=== PATIENT | female | born 1945 | race Caucasian/White ===

== ENCOUNTER 2018-02-25 09:45 | Emergency (ER) | payer MEDICARE, MEDICAID ==
[~2018-02-25] VITALS: Ht 157.5 cm; Wt 78.9 kg
[~2018-02-25 09:45] MED LIST: ALLO100T PO; ANAS1TAB8 PO; CALC-1029 PO; CITA20TA16 PO; DOCU250C14 PO; ENAL5TAB PO; GLYB5TAB7 PO; LINA5TAB PO; METF-440 PO; SIMV20TA6 PO; [UNRECOGNIZED DRUG - CODE] OP
--- NOTE | 2018-02-25 09:53 | NUR ---
BIB RA 878 FROM HOME,FOUND BY SON ON THE FLOOR THIS MORNING,UNABLE TO GET UP AFTER GLF. DENIES LOC. A/OX 2, BREATHING EVEN AND UNLABORED. NO SOB, NAD, VITALS STABLE. SAFETY AND COMFORT MEASURES IN PLACE. AWAITING MD ORDERS.
[2018-02-25] MEDS ORDERED: ACETAMINOPHEN ES 500 MG TABLET ONE (09:56)
[2018-02-25] MEDS ORDERED: ACETAMINOPHEN 325 MG TABLET PO ONE (10:00)
[2018-02-25] MEDS ORDERED: CANA1TAB4 PO (10:03)
--- NOTE | 2018-02-25 10:07 | NUR ---
RAILCAR CARPENTER AT BEDSIDE
--- NOTE | 2018-02-25 11:15 | NUR ---
PATIENT ABLE TO AMBULATE WITH MAX ASSIST. DENIES ANY PAIN. MD AWARE.
[2018-02-25 11:42] VITALS: BP 138/66
--- NOTE | 2018-02-25 11:49 | NUR ---
Patient discharged to home in stable condition. Written and verbal after care instructions given. Patient verbalizes understanding of instruction.
== END 2018-02-25 11:49 | disposition home or self-care (01) ==
LOC: ER 09:48
DX: S80.01XA Contusion of right knee, initial encounter (principal); S80.02XA Contusion of left knee, initial encounter; E11.40 Type 2 diabetes mellitus with diabetic neuropathy, unspecified; I10 Essential (primary) hypertension; Z79.84 Long term (current) use of oral hypoglycemic drugs; Z85.3 Personal history of malignant neoplasm of breast; Z60.2 Problems related to living alone; W01.0XXA Fall on same level from slipping, tripping and stumbling without subsequent striking against object, initial encounter; Y93.01 Activity, walking, marching and hiking; Y92.002 Bathroom of unspecified non-institutional (private) residence as the place of occurrence of the external cause; Y99.8 Other external cause status
CPT/HCPCS: 73564-TC; A4606; Z7610

== ENCOUNTER 2018-03-07 20:19 | Inpatient (IN) | payer MEDICAID, MEDICARE ==
[~2018-03-07] VITALS: Ht 165.1 cm; Wt 75.3 kg
[2018-03-07] MEDS: BLOOD SUGAR DIAGNOSTIC 1 EACH STRIP IN SCH (00:40)
[~2018-03-07 20:19] MED LIST changes: -ALLO100T PO; -ANAS1TAB8 PO; -CALC-1029 PO; +CANA1TAB4 PO; -DOCU250C14 PO; -GLYB5TAB7 PO; -LINA5TAB PO; -METF-440 PO; -[UNRECOGNIZED DRUG - CODE] OP
--- NOTE | 2018-03-07 20:35 | NUR ---
PT BBRA FROM HOME AFTER SON FOUND PT LAYING ON THE FLOOR AND UNABLE TO GET UP. -KO. -N/V/D. SKIN WARM AND DRY TO TOUCH. PT IS AAOX4. PT DENIES DIZZINESS. PT DENIES TRAUMA. PT'S RESP EVEN AND UNLABORED. NO S/S OF ACUTE DISTRESS NOTED. PT SAFETY AND COMFORT MEASURES IN PLACE. VSS. PT PLACED ON INSURANCE FOLLOW UP SPECIALIST AND POX. FAMILY MEMBERS BEDSIDE. AWAITING MD FOR EVAL
[2018-03-07 20:58] LABS: BASOPHILS # (AUTO) 0.2 /CMM (0.0-0.2); MONOCYTES # (AUTO) 0.5 /CMM (0.1-1.30)
[2018-03-07 21:02] LABS: BASOPHILS % (AUTO) 1.7 % (0.0-2.0); EOSINOPHILS % (AUTO) 0.9 % (0.0-6.0); HEMATOCRIT 32 % (33-45); HEMOGLOBIN 10.8 g/dL (11.5-14.8); LYMPHOCYTES # (AUTO) 1.8 /CMM (0.8-4.8); LYMPHOCYTES % (AUTO) 14.1 % (20.0-44.0); MEAN CORPUSCULAR HGB CONC 34 g/dl (31.0-36.0); MEAN CORPUSCULAR VOLUME 81 fL (82-100); MONOCYTES % (AUTO) 3.8 % (2.0-12.0); NEUTROPHILS # (AUTO) 10.5 /CMM (1.8-8.9); NEUTROPHILS % (AUTO) 79.5 % (43.0-81.0); PLATELET COUNT (AUTO) 399 /CMM (150-450); RDW COEFFICIENT OF VARIATION 13.7 (11.5-15.0); RED BLOOD CELL COUNT(AUTO) 4.01 MIL/uL (4.0-5.2); WHITE BLOOD COUNT (AUTO) 13.1 K/uL (4.3-11.0)
[2018-03-07 21:13] LABS: CALCIUM, SERUM 9.4 mg/dL (8.5-10.1); CARBON DIOXIDE 24 mmol/L (21-32); CHLORIDE 98 mmol/L (98-107); CREATININE 1.6 mg/dL (0.6-1.3); GLUCOSE 307 mg/dL (74-106); SODIUM SERUM 131 mmol/L (136-145); UREA NITROGEN, BLOOD 48 mg/dL (7-18)
--- NOTE | 2018-03-07 21:24 | NUR ---
CALLED NURSING SUP. FOR MS BED
--- NOTE | 2018-03-07 21:28 | NUR ---
CURTIS PAVON, BETO SHEPARD TEMPERATURE REGULATOR
[2018-03-07] MEDS ORDERED: IV NS 0.9% 500 ML BAG IV ONE (21:30)
[2018-03-07 21:39] LABS: BAND % (MANUAL) 2 % (0.0-5.0); LYMPHOCYTES % (MANUAL) 14 % (16-48); MONOCYTES % (MANUAL) 4 % (0-11.0); NEUTROPHILS % (MANUAL) 80 (42-76)
[2018-03-07 22:05] LABS: CREATINE KINASE MB 2.8 ng/mL (0-3.6)
--- NOTE | 2018-03-07 22:30 | NUR ---
REPORT GIVEN TO CAMELIA GARSIA FOR IRENA.
[2018-03-07 22:45] VITALS: BP 140/64
--- NOTE | 2018-03-07 22:45 | NUR ---
MS/MANAGER AUDIO; PT CAME FROM ER FOR ADMISSION VIA GURNEY ACCOMPANIED BY ER MALE STAFF AND ALSO ACCOMPANIED BY 2 SONS ZEINA AND MITESH. DX; DEHYDRATION. PT AWAKE, ALERT AND VERBALLY RESPONSIVE FARSI SPEAKING WITH LITTLE WELSH. DENIES PAIN. BREATHING NON LABORED. HL ON RWA # 20 INTACT. PT WOUNDS. BOTH LOWER LEGS AND FEET ARE SWOLLEN. BED ON LOWER POSITION AND LEANNA FOR SAFETY. SIDE RAILS ARE UP FOR SAFETY. CONTINUE TO MONITOR . CALL LIGHT WITHIN REACH. INCONTINENT OF URINE AND BM. PERINEAL CARE DONE.
[2018-03-07 23:00] VITALS: BP 140/64
[2018-03-07] MEDS ORDERED: Z GUARD REMEDY 2 OZ OINT TP PRN (23:00)
[2018-03-07] MEDS ORDERED: ACETAMINOPHEN 325 MG TABLET PO PRN (23:00)
[2018-03-07] MEDS ORDERED: DEXTROSE 50%-WATER 50 ML DISP.SYRIN IV PRN (23:00)
[2018-03-07] MEDS ORDERED: ONDANSETRON HCL/PF 4 MG/2 ML VIAL IVP PRN (23:00)
[2018-03-07] MEDS ORDERED: MAGNESIUM HYDROXIDE 30 ML UDC PO PRN (23:00)
[2018-03-07] MEDS: IV NS 0.9% 1,000 ML IV PRN (23:59)
[2018-03-08] MEDS ORDERED: AMLO5TAB4 PO (00:13)
[2018-03-08] MEDS ORDERED: GLIM1TAB2 PO (00:13)
[2018-03-08] MEDS ORDERED: DICL1ADH11 TP (00:13)
[2018-03-08] MEDS ORDERED: LINA72CA PO (00:13)
[2018-03-08] MEDS ORDERED: ERGO500040 PO (00:13)
[2018-03-08] MEDS ORDERED: ACET-2605 PO (00:13)
--- NOTE | 2018-03-08 00:30 | NUR ---
MS/BELT MEASURER; PLACED A CALL TO BETO SHEPARD OIL SALES AND SERVICE REP RE PT'S SON ZEINA WANTS TO CONTINUE PT'S MED TONIGHT AND SUGGESTION FOR FC . AWAITING.
--- NOTE | 2018-03-08 00:40 | NUR ---
MS/YARN WEIGHER; BS 360 COVERED WITH REGULAR INSULIN 8 UNITS SQ. WILL CONTINUE TO MONITOR.
--- NOTE | 2018-03-08 01:45 | NUR ---
MS/OTORHINOLARYNGOLOGIST; BETO SHEPARD NP RETURNED CALL AND SPOKE TO HER RELAYED TO HER PT'S MED RECON PER SON ZEINA WANTS PT TO CONTINUE HER PO MEDS TONIGHT DUE TO PT DID NOT TAKE HER MEDS YESTERDAY AND ALMA SHEPARD NP SAID NOT TO CONTINUE PO MEDS TONIGHT START IT TOMORROW.ALSO SHE OK TO PLACE WARD CATH. MARY RN SPOKE TO THE PT IN [facility] AN TOOL SHAPER SETUP OPERATOR REGARDING MEDS AND TO PLACE A FC . PT REFUSED FC.
[2018-03-08] MEDS: BLOOD SUGAR DIAGNOSTIC 1 EACH STRIP IN SCH ×4 (05:55→22:07)
--- NOTE | 2018-03-08 06:00 | NUR ---
MS/SALES SERVICE ROUTE MANAGER; BS 209 REFUSED INSULIN COVERAGE.
--- NOTE | 2018-03-08 06:30 | NUR ---
MS/DISC RECORDIST; PLACED A CALL TO NUNO PASTRANA PT'S PO MEDS TO START TODAY PER MD.
--- NOTE | 2018-03-08 06:46 | NUR ---
MS/SIGNAL PROCESSING ENGINEER; SLEPT FAIRLY. BREATHING NON LABORED. INCONTINENT URINE X 3 AND BM X1 LARGE AMOUNT BROWN COLOR . MORNING CARE DONE BY THE SOCCER COACH. TURNED AND REPOSITIONED. IVF ON PROGRESS. PT WAS SAYING FELT DIZZY OCC. CONTINUE TO MONITOR. CALL LIGHT WITHIN REACH. WILL ENDORSE TO THE DAY SHIFT NURSE.
[2018-03-08 07:02] LABS: BASOPHILS % (AUTO) 0.4 % (0.0-2.0); EOSINOPHILS % (AUTO) 1.1 % (0.0-6.0); HEMATOCRIT 29 % (33-45); HEMOGLOBIN 9.8 g/dL (11.5-14.8); LYMPHOCYTES # (AUTO) 1.8 /CMM (0.8-4.8); LYMPHOCYTES % (AUTO) 17.2 % (20.0-44.0); MEAN CORPUSCULAR HGB CONC 33 g/dl (31.0-36.0); MEAN CORPUSCULAR VOLUME 82 fL (82-100); MONOCYTES # (AUTO) 0.7 /CMM (0.1-1.30); MONOCYTES % (AUTO) 6.3 % (2.0-12.0); NEUTROPHILS # (AUTO) 7.8 /CMM (1.8-8.9); PLATELET COUNT (AUTO) 359 /CMM (150-450); RDW COEFFICIENT OF VARIATION 14.6 (11.5-15.0); RED BLOOD CELL COUNT(AUTO) 3.59 MIL/uL (4.0-5.2); WHITE BLOOD COUNT (AUTO) 10.4 K/uL (4.3-11.0)
[2018-03-08 07:19] LABS: CALCIUM, SERUM 8.8 mg/dL (8.5-10.1); CARBON DIOXIDE 26 mmol/L (21-32); CHLORIDE 102 mmol/L (98-107); CREATININE 1.4 mg/dL (0.6-1.3); GLUCOSE 213 mg/dL (74-106); MAGNESIUM 1.9 mg/dL (1.8-2.4); PHOSPHORUS 3.7 mg/dL (2.5-4.9); POTASSIUM 4.1 mmol/L (3.5-5.1); SODIUM SERUM 136 mmol/L (136-145); UREA NITROGEN, BLOOD 37 mg/dL (7-18)
[2018-03-08 07:23] LABS: CHOLESTEROL 133 mg/dL (<200); HDL CHOLESTEROL 36 mg/dL (40-60); LDL 78 mg/dL (0-99); TRIGLYCERIDES 138 mg/dL (30-150)
[2018-03-08 08:00] VITALS: BP 121/56
[2018-03-08] MEDS ORDERED: ERGOCALCIFEROL (VITAMIN D 2) 50,000 UNIT CAPSULE PO SCH (09:00)
[2018-03-08] MEDS ORDERED: FLECTOR TP SCH ×2 (09:00→09:30)
[2018-03-08] MEDS ORDERED: ACETAMINOPHEN ES 500 MG TABLET PO PRN (09:30)
--- NOTE | 2018-03-08 09:40 | NUR ---
DIET COUNSELOR NOTE Pt aao x3, in bed on the phone with son, Pt understands and speaks very little croatian, primary language farsi, Urdu culture, Spoke on the phone with son Emil, he was very concerned with medication taken in the hospital in reference to the medication taking at home; Patient was given insulin pt complained it made he dizzy; MEDICAL VIDEOGRAPHER Made aware
--- NOTE | 2018-03-08 10:48 | NUR ---
COMPENSATION PROGRAMS MANAGER NOTE PT in room with patient; Patient incontinent of urine and stool; assisted Farm Implement Mechanic with change and turning patient; PT has several Pressure Ulcers from home; Patient perfers to turn with little assistance to help promote circulation because left knee has alot of pain alyssa moved;
[2018-03-08] MEDS: SIMVASTATIN 20 MG TABLET PO SCH (10:50)
[2018-03-08] MEDS: CITALOPRAM HYDROBROMIDE 20 MG TABLET PO SCH (10:50)
[2018-03-08] MEDS: AMLODIPINE BESYLATE 5 MG TABLET PO SCH (10:50)
[2018-03-08] MEDS: HEPARIN SODIUM, PORCINE 5000 UNITS/1 ML VIAL SQ SCH ×2 (10:50→21:39)
--- NOTE | 2018-03-08 13:40 | NUR ---
RHIC SYSTEMS SAFETY ENGINEER NOTE Family at bedside continuously throughout the day; Patient continues to refused insulin, insist on waiting for family to bring medicine from home Bilateral legs swollen legs kept elevated throughout the day
[2018-03-08 16:00] VITALS: BP 122/64
--- NOTE | 2018-03-08 17:00 | NUR ---
SOCIAL WORK PROGRAM COORDINATOR NOTE Unsuccessful with Rosales insert; Perineal area very swollen; endorsed to the next shift Diabetic Medication from home taken
[2018-03-08] MEDS: INVOKAMET PO SCH (17:30)
--- NOTE | 2018-03-08 19:35 | NUR ---
MS/FLUME RIDE OPERATOR; RECEIVED PT'S REPORTS FROM THE DAY SHIFT RN FOR CONTINUITY OF CARE. AT THIS TIME PT IN BED AWAKE, ALERT AND VERBALLY RESPONSIVE. FARSI SPEAKING WITH LITTLE YAKUT. HOB ELEVATED AT 30 DEGREES. BREATHING NON LABORED. IVF INFUSING ON HER RWA. BED ON LOWER POSITION AND LOCKED FRO SAFETY. SIDE RAILS X 3 ARE UP FOR SAFETY. PT'S DAUGHTER JENNIFER VISITED AT THE BEDSIDE SO WITH HER GRANDSON. WILL CONTINUE TO MONITOR. CALL LIGHT WITHIN REACH.
[2018-03-08 20:41] VITALS: BP 106/56
--- NOTE | 2018-03-08 21:00 | NUR ---
TELE/TEST ENGINEER NUCLEAR EQUIPMENT; KEPPRA 500 MG GT Q 12 NOT GIVEN AT THIS TIME TO CLOSE TO GIVE BECAUSE DAY SHIFT RN GAVE AT 1700. SO I WILL NEED TO ADJUST AND GIVEN IT IN THE MORNING AT 0500 TO MAKE IT Q 12. DAY SHIFT GAVE IT AT 1700 AND TO CLOSE TO GIVE ON MY SHIFT AND I INFORMED THE CHARGE NURSE.
--- NOTE | 2018-03-08 21:45 | NUR ---
MS/STAGE PRODUCER; AT THIS TIME I ASKED AND EXPLAINED TO THE PT. ABOUT INSERTING WARD CATH THE IMPORTANCE OF IT. BUT PT REFUSED AND SHE SAID TOMORROW , SHE FURTHER SAID I AM TIRED AND I NEED TO SLEEP. IF THERE IS VISITOR SHE SAID NO VISITOR I AM TIRED AND I NEED TO SLEEP. CHARGE NURSE MADE AWARE PT REFUSED FC.
--- NOTE | 2018-03-08 22:00 | NUR ---
MS/DIE CAST DIE MAKER; BS 283 REGULAR INSULIN 6 UNITS NOT GIVEN PT DOES NOT WANT ANY INSULIN. CHARGE NURSE MADE AWARE.
[2018-03-09] MEDS: IV NS 0.9% 1,000 ML IV PRN ×2 (02:37→15:59)
--- NOTE | 2018-03-09 06:00 | NUR ---
MS/GREEN MARKETING ANALYST; BS 176 REGULAR 3 UNITS NOT GIVEN PT REFUSED. WITH IVF ON PROGRESS.
[2018-03-09] MEDS: BLOOD SUGAR DIAGNOSTIC 1 EACH STRIP IN SCH ×4 (06:15→21:35)
--- NOTE | 2018-03-09 06:47 | NUR ---
MS/CRYSTAL CALIBRATOR; SLEPT AT GOOD INTERVALS. IVF ON PROGRESS. INCONTINENT OF URINE; NO BM. I ASKED AGAIN TO THE PT THAT I NEED TO INSERT WARD CATH. BUT STILL SHE REFUSED. MORNING CARE GIVEN BY THE ORACLE FINANCIALS CONSULTANT. TURNED AND REPOSITIONED TO SIDES. WILL CONTINUE TO MONITOR. CALL LIGHT WITHIN REACH. WILL ENDORSE TO THE DAY SHIFT.
--- NOTE | 2018-03-09 07:25 | NUR ---
RN OPEN NOTES RECEIVED REPORT FROM MISCELLANEOUS MACHINE OPERATOR NURSE AT BEDSIDE. PATIENT IS IN BED WITH HER EYES CLOSED. BREATHING IS BILATERALLY EVEN. NO SIGNS AND SYMPTOMS OF DISTRESS. BED IN LOW POSITION, LOCKED AND TWO SIDE RAILS ARE UP. CALL LIGHT WITHIN REACH FOR SAFETY. WILL CONTINUE TO ASSESS AND MONITOR PATIENT THROUGHOUT MY SHIFT.
--- NOTE | 2018-03-09 07:26 | NUR ---
PER HOT TAMALE MAN NURSE, PATIENT REFUSING WARD.
[2018-03-09 08:00] VITALS: BP 121/65
[2018-03-09] MEDS: AMLODIPINE BESYLATE 5 MG TABLET PO SCH (08:51)
[2018-03-09] MEDS: CITALOPRAM HYDROBROMIDE 20 MG TABLET PO SCH ×2 (08:51→21:36)
[2018-03-09] MEDS: INVOKAMET PO SCH ×2 (08:51→16:19)
[2018-03-09] MEDS: SIMVASTATIN 20 MG TABLET PO SCH (08:51)
[2018-03-09] MEDS: HEPARIN SODIUM, PORCINE 5000 UNITS/1 ML VIAL SQ SCH ×2 (08:55→20:37)
[2018-03-09] MEDS ORDERED: SILVER NITRATE APPLICATOR 1 EA BOX TP SCH (11:00)
--- NOTE | 2018-03-09 11:05 | NUR ---
WOUND CARE CONSULT: PT SEEN FOR SKIN ASSESSMENT AND NOTED TO HAVE MULTIPLE WOUNDS INCLUDING LEFT THIGH, LEFT HIP AND LEFT POSTERIOR THIGH NECROTIC WOUNDS. DEFER TO SURGICAL TEAM FOR WOUND TREATMENT PLAN. PT ON ARNOLDO ISOFLEX LOW AIRLOSS BED. PT IS INCONTINENT. IN AGREEMENT WITH PLAN OF CARE. Addendum: 03/09/18 at 1107 by RIVER ESPINOZA WNDNU Amended: Links added.
--- NOTE | 2018-03-09 11:30 | NUR ---
16FR WARD INSERTED. PATIENT TOLERATED PROCEDURE WELL. THE BALLOON INFLATED WITH 10CC OF FLUID
[2018-03-09 11:39] LABS: BASOPHILS % (AUTO) 0.5 % (0.0-2.0); HEMATOCRIT 29 % (33-45); HEMOGLOBIN 9.5 g/dL (11.5-14.8); LYMPHOCYTES # (AUTO) 1.8 /CMM (0.8-4.8); LYMPHOCYTES % (AUTO) 19.4 % (20.0-44.0); MEAN CORPUSCULAR HGB CONC 33 g/dl (31.0-36.0); MEAN CORPUSCULAR VOLUME 82 fL (82-100); MONOCYTES # (AUTO) 0.7 /CMM (0.1-1.30); MONOCYTES % (AUTO) 6.9 % (2.0-12.0); NEUTROPHILS # (AUTO) 6.8 /CMM (1.8-8.9); NEUTROPHILS % (AUTO) 71.2 % (43.0-81.0); PLATELET COUNT (AUTO) 372 /CMM (150-450); RDW COEFFICIENT OF VARIATION 14.2 (11.5-15.0); RED BLOOD CELL COUNT(AUTO) 3.49 MIL/uL (4.0-5.2); WHITE BLOOD COUNT (AUTO) 9.5 K/uL (4.3-11.0)
[2018-03-09 11:44] LABS: CALCIUM, SERUM 8.8 mg/dL (8.5-10.1); CARBON DIOXIDE 26 mmol/L (21-32); CHLORIDE 103 mmol/L (98-107); CREATININE 1.3 mg/dL (0.6-1.3); GLUCOSE 278 mg/dL (74-106); POTASSIUM 4.1 mmol/L (3.5-5.1); SODIUM SERUM 138 mmol/L (136-145); UREA NITROGEN, BLOOD 28 mg/dL (7-18)
[2018-03-09] MEDS ORDERED: LIDOCAINE 1%-EPI 1:100,000 20 ML VIAL TP ONE (12:00)
--- NOTE | 2018-03-09 12:30 | NUR ---
FAMILY REFUSING INSULIN COVERAGE FOR BLOOD SUGAR 249
[2018-03-09] MEDS: NYSTATIN TOP POWDER 15 GM BOTTLE TP SCH ×2 (12:59→16:19)
[2018-03-09 13:36] LABS: APPEARANCE,URINE CLOUDY (CLEAR); BILIRUBIN,URINE NEGATIVE (NEGATIVE); BLOOD, URINE 2+ Ery/uL (NEGATIVE); COLOR,URINE YELLOW (YELLOW); KETONES,URINE NEGATIVE (NEGATIVE); LEUKOCYTE ESTERASE ,URINE 1+ (NEGATIVE); NITRITE, URINE NEGATIVE (NEGATIVE); PH,URINE 5.5 (5.0-8.0); PROTEIN,URINE TRACE mg/dl (NEGATIVE); UGLUCOSE 3+ mg/dL (NEGATIVE); UROBILINOGEN,URINE 0.2 EU/dL (0.2)
[2018-03-09] MEDS ORDERED: GLIM1TAB2 PO (13:46)
--- NOTE | 2018-03-09 14:00 | NUR ---
SON SIGNED THE CONSENT. PLACED INT HE CHART
[2018-03-09 14:39] LABS: BACTERIA,URINE Many /HPF (None Seen); SQUAMOUS EPITHELIAL CELL,UR Moderate /HPF (None Seen); YEAST,URINE Moderate /HPF (None Seen)
[2018-03-09] MEDS: NYSTATIN/TRIAMCIN CREAM 15 GM TUBE TP SCH ×2 (14:45→20:45)
[2018-03-09] MEDS: DAKINS QUARTER STRENGTH (0.125%) 480 ML BOTTLE TOP SCH (14:46)
[2018-03-09 16:00] VITALS: BP 135/64
[2018-03-09] MEDS: HYDROCODONE/APAP 5/325MG 1 EACH TABLET PO PRN ×2 (16:00→20:36)
--- NOTE | 2018-03-09 16:00 | NUR ---
NORCO ADMINISTERED AT 4PM PRIOR TO WOUND DEBRIDEMENT
[2018-03-09] MEDS: GLIMEPIRIDE 1 MG TABLET PO SCH (16:19)
[2018-03-09] MEDS: CEFTRIAXONE 1 G in IV D5W 50 ML IV SCH (16:40)
--- NOTE | 2018-03-09 17:00 | NUR ---
WOUND DEBRIDEMENT AT BEDSIDE BY FREDRICK MURCIA
--- NOTE | 2018-03-09 17:29 | NUR ---
POST-DEBRIDEMENT PICTURES TAKEN AND PLACED IN THE CHART
--- NOTE | 2018-03-09 17:30 | NUR ---
FAMILY REFUSING INSULIN COVERAGE
--- NOTE | 2018-03-09 19:10 | NUR ---
RN CLOSING NOTES REPORT GAVE TO MACHINES TECHNICIAN NURSE. PATIENT IS IN BED, AWAKE. FAMILY AT BEDSIDE. NO SIGNS AND SYMPTOMS OF DISTRESS. BED IN LOW POSITION, LOCKED AND TWO SIDE RAILS ARE UP. CALL LIGHT WITH IN REACH FOR SAFETY. ALL NURSING CARE ANTICIPATED AND PROVIDED. PATIENT KEPT CLEAN, DRY AND SAFE. S/P WOUND DEBRIDEMENT
[2018-03-09] MEDS ORDERED: CARBOXYMETHYLCELLULOSE SODIUM 0.4 ML DROPERETTE EACHEYE PRN (19:30)
--- NOTE | 2018-03-09 19:30 | NUR ---
MS RN NOTE RECEIVED PATIENT FROM DAY SHIFT, PATIENT IS ALERT AND ORIENTEDX2-3, FARSI SPEAKING, NO S/S OF RESPIRATORY DISTRESS OR PAIN NOTED. IV ON RIGHT WRIST IS PATENT AND INTACT, SL ONLY. SRX2, BED IN LOW POSITION, CALL LIGHT WITHIN REACH, WILL CONTINUE TO MONITOR PATIENT.
[2018-03-09 20:00] VITALS: BP 125/59
--- NOTE | 2018-03-09 20:40 | NUR ---
MS RN NOTE PATIENT COMPLAINS OF PAIN ON LEFT THIGH, NORCO 5-325MG PO GIVEN. WILL REASSESS EFFECTIVENESS.
[2018-03-09] MEDS: ZOLPIDEM TARTRATE 5 MG TABLET PO PRN (21:36)
--- NOTE | 2018-03-09 21:50 | NUR ---
MS RN NOTE PATIENT'S BS IS 210MG/DL, REFUSED TO GET INSULIN COVERAGE. EDUCATED PT RISKS OF NOT GETTING INSULIN. STILL PT REFUSED STATING THAT IT IS BETTER THAN BEFORE.
[2018-03-10] MEDS: BLOOD SUGAR DIAGNOSTIC 1 EACH STRIP IN SCH ×4 (05:57→21:18)
--- NOTE | 2018-03-10 06:53 | NUR ---
MS RN NOTE PATIENT IS RESTING IN BED COMFORTABLY, NO ACUTE DISTRESS NOTED THROUGHOUT THE SHIFT. PATIENT REFUSED TO CHANGE HER DRESSING ON LEFT LEG STATING THAT THEY ARE NEW, AND SHE WANTS TO GET REST. IV ON RIGHT WRIST IS PATENT AND INTACT, SL ONLY. WILL ENDORSE TO DAY SHIFT NURSE FOR IRENA.
--- NOTE | 2018-03-10 07:27 | NUR ---
RN OPEN NOTES RECEIVED REPORT FROM CERTIFIED CORPORATE TRAVEL EXECUTIVE NURSE AT BEDSIDE. PATIENT IS IN BED, AWAKE. NO SIGNS AND SYMPTOMS OF DISTRESS OR PAIN. BED IN LOW POSITION, LOCKED AND TWO SIDE RAILS ARE UP. CALL LIGHT WITHIN REACH FOR SAFETY. WILL CONTINUE TO ASSESS AND MONITOR PATIENT THROUGHOUT MY SHIFT.
[2018-03-10 08:00] VITALS: BP 132/70
[2018-03-10] MEDS: GLIMEPIRIDE 1 MG TABLET PO SCH ×2 (08:13→16:09)
[2018-03-10] MEDS: SIMVASTATIN 20 MG TABLET PO SCH (08:14)
[2018-03-10] MEDS: AMLODIPINE BESYLATE 5 MG TABLET PO SCH (08:14)
[2018-03-10] MEDS: NYSTATIN TOP POWDER 15 GM BOTTLE TP SCH ×2 (08:15→16:35)
[2018-03-10] MEDS: NYSTATIN/TRIAMCIN CREAM 15 GM TUBE TP SCH ×2 (08:15→21:18)
[2018-03-10] MEDS: INVOKAMET PO SCH ×2 (08:17→16:35)
[2018-03-10] MEDS: HEPARIN SODIUM, PORCINE 5000 UNITS/1 ML VIAL SQ SCH ×2 (08:20→21:13)
[2018-03-10] MEDS: HYDROCODONE/APAP 5/325MG 1 EACH TABLET PO PRN ×2 (12:18→16:59)
[2018-03-10 16:00] VITALS: BP 132/65
[2018-03-10] MEDS: CEFTRIAXONE 1 G in IV D5W 50 ML IV SCH (16:09)
--- NOTE | 2018-03-10 18:09 | NUR ---
DRESSING CHANGE COMPLETED PER ELEMENTARY ART TEACHER INSTRUCTIONS AND HOSPITAL POLICY
[2018-03-10 20:00] VITALS: BP 133/66
--- NOTE | 2018-03-10 20:09 | NUR ---
RN CLOSING NOTES REPORT GAVE TO ACID FILLER NURSE. PATIENT IS IN BED, AWAKE. FAMILY AT BEDSIDE. NO SIGNS AND SYMPTOMS OF DISTRESS. BED IN LOW POSITION, LOCKED AND TWO SIDE RAILS ARE UP. CALL LIGHT WITH IN REACH FOR SAFETY. ALL NURSING CARE ANTICIPATED AND PROVIDED. PATIENT KEPT CLEAN, DRY AND SAFE.
[2018-03-10] MEDS: CITALOPRAM HYDROBROMIDE 20 MG TABLET PO SCH (21:13)
[2018-03-10] MEDS: ZOLPIDEM TARTRATE 5 MG TABLET PO PRN (21:13)
[2018-03-11] MEDS: BLOOD SUGAR DIAGNOSTIC 1 EACH STRIP IN SCH ×4 (05:41→21:14)
--- NOTE | 2018-03-11 06:38 | NUR ---
MS RN NOTE PATIENT IS RESTING IN BED COMFORTABLY, NO ACUTE DISTRESS NOTED THROUGHOUT THE SHIFT. IV ON RIGHT WRIST IS PATENT AND INTACT, SL ONLY. WILL ENDORSE TO DAY SHIFT NURSE FOR IRENA.
[2018-03-11 06:42] LABS: BASOPHILS % (AUTO) 0.4 % (0.0-2.0); EOSINOPHILS % (AUTO) 3.1 % (0.0-6.0); HEMATOCRIT 30 % (33-45); HEMOGLOBIN 9.9 g/dL (11.5-14.8); LYMPHOCYTES # (AUTO) 3.4 /CMM (0.8-4.8); LYMPHOCYTES % (AUTO) 31.6 % (20.0-44.0); MEAN CORPUSCULAR HGB CONC 33 g/dl (31.0-36.0); MEAN CORPUSCULAR VOLUME 83 fL (82-100); MONOCYTES # (AUTO) 0.8 /CMM (0.1-1.30); MONOCYTES % (AUTO) 7.6 % (2.0-12.0); NEUTROPHILS # (AUTO) 6.2 /CMM (1.8-8.9); NEUTROPHILS % (AUTO) 57.3 % (43.0-81.0); PLATELET COUNT (AUTO) 399 /CMM (150-450); RDW COEFFICIENT OF VARIATION 14.3 (11.5-15.0); RED BLOOD CELL COUNT(AUTO) 3.65 MIL/uL (4.0-5.2); WHITE BLOOD COUNT (AUTO) 10.8 K/uL (4.3-11.0)
[2018-03-11 06:58] LABS: CARBON DIOXIDE 26 mmol/L (21-32); CHLORIDE 105 mmol/L (98-107); CREATININE 1.2 mg/dL (0.6-1.3); GLUCOSE 62 mg/dL (74-106); POTASSIUM 4.2 mmol/L (3.5-5.1); SODIUM SERUM 139 mmol/L (136-145); UREA NITROGEN, BLOOD 20 mg/dL (7-18)
--- NOTE | 2018-03-11 07:15 | NUR ---
RN NOTES PT IS LAYING DOWN IN BED, RESTING COMFORTABLY. PT ON RA, RESPIRATIONS ARE EVEN AND UNLABORED. IV ON R WRIST INTACT AND PATENT. NO SIGNS OF DISTRESS NOTED. SAFETY MEASURES ARE IN PLACE, CALL LIGHT IS IN REACH. WILL CONTINUE TO MONITOR.
[2018-03-11 08:00] VITALS: BP_SYST 114; BP_SYST 144; BP_DIAS 58
[2018-03-11] MEDS: SIMVASTATIN 20 MG TABLET PO SCH (08:27)
[2018-03-11] MEDS: INVOKAMET PO SCH ×2 (08:27→16:59)
[2018-03-11] MEDS: AMLODIPINE BESYLATE 5 MG TABLET PO SCH (08:27)
[2018-03-11] MEDS: GLIMEPIRIDE 1 MG TABLET PO SCH ×2 (08:27→16:58)
[2018-03-11] MEDS: HEPARIN SODIUM, PORCINE 5000 UNITS/1 ML VIAL SQ SCH ×2 (08:40→21:16)
[2018-03-11] MEDS: NYSTATIN TOP POWDER 15 GM BOTTLE TP SCH ×2 (08:40→16:59)
[2018-03-11] MEDS: DAKINS QUARTER STRENGTH (0.125%) 480 ML BOTTLE TOP SCH (08:40)
[2018-03-11] MEDS: NYSTATIN/TRIAMCIN CREAM 15 GM TUBE TP SCH ×2 (08:41→21:57)
[2018-03-11 16:00] VITALS: BP 122/79
[2018-03-11] MEDS: CEFTRIAXONE 1 G in IV D5W 50 ML IV SCH (16:59)
--- NOTE | 2018-03-11 18:20 | NUR ---
RN NOTES PT WAS CHANGED WITH RN AND DIAMOND SAW OPERATOR PRESENT. PT WAS TURNED SLOWLY AND WITH CAUTION TO AVOID PAIN TO THE PT. PT CLEANED WITH SOAP AND WATER, NYSTATIN TOPICAL AND Z-GUARD APPLIED. PT REFUSED TO HAVE DRESSING CHANGED. PT STATES "IT WAS DONE LAST NIGHT, IT DOESNT NEED TO BE DONE AGAIN UNTIL TOMORROW".
--- NOTE | 2018-03-11 18:41 | NUR ---
RN NOTES PT IS LAYING DOWN IN BED, AWAKE AND RESTING COMFORTABLY. PT ON RA, RESPIRATIONS ARE EVEN AND UNLABORED. IV ON R WRIST INTACT AND SL. WARD CATHETER IS INTACT AND DRAINING TO GRAVITY. ALL MEDS WERE GIVEN ORDERED AND PT NEEDS MET. NO SIGNS OF DISTRESS NOTED. SAFETY MEASURES ARE IN PLACE, CALL LIGHT IS IN REACH. WILL ENDORSE TO SALT WASHER HARVESTING STATION RN FOR CONTINUITY OF CARE.
--- NOTE | 2018-03-11 19:00 | NUR ---
MS RN OPENING NOTE RECEIVED PATIENT IN BED, ALERT ORIENTED X3, ON ROOM AIR, TOLERATING WELL, RESPIRATIONS EVEN AND UNLABORED, IN NO APPARENT DISTRESS OR DISCOMFORT AT THIS TIME, DENIES PAIN AT THIS TIME. PATIENT WITH WARD CATHETER IN PLACE, INTACT AND DRAINING CLEAR YELLOW URINE. RIGHT WRIST IVC 20G, SL, PATENT AND INTACT. PATIENT KEPT CLEAN AND COMFORTABLE. SON AT BEDSIDE, SAFETY ,MEASURES IN PLACE, BED IN LOW LOCKED POSITION, SIDE RAILS UP X2, CALL LIGHT WITHIN EASY REACH, WILL CONTINUE TO MONITOR.
[2018-03-11 20:00] VITALS: BP 139/70
[2018-03-11] MEDS: CITALOPRAM HYDROBROMIDE 20 MG TABLET PO SCH (21:14)
[2018-03-11] MEDS: ZOLPIDEM TARTRATE 5 MG TABLET PO PRN (21:15)
[2018-03-11] MEDS: INSULIN REGULAR, HUMAN 100 UNIT/ML 3 ML VIAL SQ PRN (21:19)
--- NOTE | 2018-03-11 22:00 | NUR ---
PATIENT REFUSED INSULIN COVERAGE FOR BS OF 153.
--- NOTE | 2018-03-12 04:17 | NUR ---
PATIENT REFUSED BED BATH AND DRESSING CHANGE OF THE WOUNDS. NO PHOTOS WERE TAKEN DUE TO REFUSAL. PATIENT STATED SHE DOES NOT WANT TO BE BOTHERED WITH HYGIENE AND WOUND CARE PROCEDURES UNTIL 10:00AM IN THE MORNING.
--- NOTE | 2018-03-12 06:09 | NUR ---
MS RN CLOSING NOTE PATIENT IN BED, SLEEPING COMFORTABLE, EASILY AROUSED WITH VERBAL STIMULI, ORIENTED X3, ON ROOM AIR, TOLERATING WELL, RESPIRATIONS EVEN AND UNLABORED, IN NO APPARENT DISTRESS OR DISCOMFORT AT THIS TIME. PATIENT WITH WARD CATHETER IN PLACE, INTACT WITH 1000ML CLEAR YELLOW URINE OUTPUT. RIGHT WRIST IVC 20G, SL, PATENT AND INTACT. PATIENT KEPT CLEAN AND COMFORTABLE. REFUSED BED BATH AND DRESSING CHANGE. STATED SHE WANTS TO SLEEP WITHOUT BEING BOTHERED AND SHE WANTS TO BE CHANGED IN AM AROUND 10.SAFETY MEASURES IN PLACE, BED IN LOW LOCKED POSITION, SIDE RAILS UP X2, CALL LIGHT WITHIN EASY REACH WILL ENDORSE TO AM NURSE FOR IRENA.
[2018-03-12] MEDS: BLOOD SUGAR DIAGNOSTIC 1 EACH STRIP IN SCH ×4 (06:55→21:49)
--- NOTE | 2018-03-12 07:10 | NUR ---
RN NOTES PT IS LAYING DOWN IN BED, SLEEPING COMFORTABLY. PT ON RA, RESPIRATIONS ARE EVEN AND UNLABORED. IV ON R WRIST INTACT AND SL. NO SIGNS OF DISTRESS NOTED. SAFETY MEASURES ARE IN PLACE, CALL LIGHT IS IN REACH. WILL CONTINUE TO MONITOR.
[2018-03-12 08:00] VITALS: BP 130/67
[2018-03-12] MEDS: GLIMEPIRIDE 1 MG TABLET PO SCH ×2 (08:25→16:13)
[2018-03-12] MEDS: INVOKAMET PO SCH ×2 (08:25→16:17)
[2018-03-12] MEDS: SIMVASTATIN 20 MG TABLET PO SCH (08:26)
[2018-03-12] MEDS: AMLODIPINE BESYLATE 5 MG TABLET PO SCH (08:26)
[2018-03-12] MEDS: HEPARIN SODIUM, PORCINE 5000 UNITS/1 ML VIAL SQ SCH ×2 (08:27→20:24)
[2018-03-12] MEDS: DAKINS QUARTER STRENGTH (0.125%) 480 ML BOTTLE TOP SCH (08:28)
[2018-03-12] MEDS: NYSTATIN/TRIAMCIN CREAM 15 GM TUBE TP SCH ×2 (08:29→21:00)
[2018-03-12] MEDS: NYSTATIN TOP POWDER 15 GM BOTTLE TP SCH ×2 (08:29→16:18)
[2018-03-12] MEDS: GABAPENTIN 100 MG CAPSULE PO SCH ×2 (11:14→16:13)
[2018-03-12] MEDS: HYDROCODONE/APAP 5/325MG 1 EACH TABLET PO PRN ×3 (11:19→20:22)
[2018-03-12 16:00] VITALS: BP 123/64
[2018-03-12] MEDS: CEFTRIAXONE 1 G in IV D5W 50 ML IV SCH (16:18)
--- NOTE | 2018-03-12 18:36 | NUR ---
RN NOTES PT IS SITTING UP IN BED, RESTING COMFORTABLY. PT ON RA, RESPIRATIONS ARE EVEN AND UNLABORED. IV ON R WRIST INTACT AND SL. ALL MEDS WERE GIVEN ORDERED AND PT NEEDS MET. 1730 ACCUCHECK 98, NO INSULIN COVERAGE NEEDED. WRAD CATHETER IS INTACT AND DRAINING TO GRAVITY. NO SIGNS OF DISTRESS NOTED. SAFETY MEASURES ARE IN PLACE, CALL LIGHT IS IN REACH. WILL ENDORSE TO FAMILY COUNSELOR RN FOR CONTINUITY OF CARE.
--- NOTE | 2018-03-12 19:15 | NUR ---
MS RN OPENING NOTE RECEIVED PATIENT IN BED, ALERT ORIENTED X3, ON ROOM AIR, TOLERATING WELL, RESPIRATIONS EVEN AND UNLABORED, IN NO APPARENT DISTRESS OR DISCOMFORT AT THIS TIME, REPORTS 5/10 NON RADIATING PAIN ON DEBRIDEMENT SITE. LAS PAIN MEDICATION GIVEN AROUND 1600. PATIENT WITH WARD CATHETER IN PLACE, INTACT AND DRAINING CLEAR YELLOW URINE. RIGHT WRIST IVC 20G, SL, PATENT AND INTACT. PATIENT KEPT CLEAN AND COMFORTABLE. DAUGHTER AT BEDSIDE, SAFETY ,MEASURES IN PLACE, BED IN LOW LOCKED POSITION, SIDE RAILS UP X2, CALL LIGHT WITHIN EASY REACH, WILL CONTINUE TO MONITOR.
[2018-03-12 20:00] VITALS: BP 140/73
[2018-03-12] MEDS: ZOLPIDEM TARTRATE 5 MG TABLET PO PRN (21:49)
[2018-03-12] MEDS: CITALOPRAM HYDROBROMIDE 20 MG TABLET PO SCH (21:49)
--- NOTE | 2018-03-12 22:00 | NUR ---
PATIENT REFUSES TO BE TURNED AND REPOSITIONED AT THIS TIME SAYING SHE IS COMFORTABLE AND DOES NOT WANT TO BE MOVED. WILL REATTEMPT AT A LATER TIME.
--- NOTE | 2018-03-13 | NUR ---
PATIENT CONTINUES TO REFUSE TO BE TURNED AND REPOSITIONED, TO HAVE PERINEAL CARE OR ANY OTHER HYGIENE ACTIVITIES PERFORMED AT THIS TIME. STATES SHE DOES NOT WANT TO BE AWOKEN AND BOTHERED UNTIL MORNING. RN EXPLAINED ALL THE RISKS AND BENEFITS. PATIENT ONLY AGREED TO DRESSING CHANGE ON RECENT DEBRIDEMENT SITE ON LEFT UPPER THIGH. WILL CONTINUE TO MONITOR AND MAKE THE MD AWARE IN THE AM.
--- NOTE | 2018-03-13 06:15 | NUR ---
MS RN CLOSING NOTE PATIENT IN BED, SLEEPING COMFORTABLE, EASILY AROUSED WITH VERBAL STIMULI, ORIENTED X3, ON ROOM AIR, TOLERATING WELL, RESPIRATIONS EVEN AND UNLABORED, IN NO APPARENT DISTRESS OR DISCOMFORT AT THIS TIME. PATIENT WITH WARD CATHETER IN PLACE, INTACT WITH 500ML SLIGHTLY CLOUDY, YELLOW URINE OUTPUT. RIGHT WRIST IVC 20G, SL, PATENT AND INTACT. PATIENT KEPT CLEAN AND COMFORTABLE. SLEPT TROUGH THE NIGHT WELL. REFUSED BED BATH, TURNING AND REPOSITIONING AND DRESSING CHANGES EXCEPT THE DRESSING ON DEBRIDED SITE, LEFT UPPER THIGH, STATED SHE WANTS TO SLEEP WITHOUT BEING BOTHERED AND SHE WANTS TO BE CHANGED IN AM. ALL RISKS AND BENEFITS EXPLAINED. SAFETY MEASURES IN PLACE, BED IN LOW LOCKED POSITION, SIDE RAILS UP X2, CALL LIGHT WITHIN EASY REACH WILL ENDORSE TO AM NURSE FOR IRENA.
[2018-03-13] MEDS: BLOOD SUGAR DIAGNOSTIC 1 EACH STRIP IN SCH ×4 (06:34→22:06)
--- NOTE | 2018-03-13 06:40 | NUR ---
0640 BS IS 63. 4OZ ORANGE JUICE IS GIVEN. WILL RECHECK AGAIN SHORTLY.
--- NOTE | 2018-03-13 07:00 | NUR ---
RECHECKED BS READING WAS 64, GAVE ANOTHER 4OZ ORANGE JUICE. WILL CONTINUE TO MONITOR.
--- NOTE | 2018-03-13 07:23 | NUR ---
REPEAT BS PERFORMED. BS 108 AT THIS TIME. WILL CONTINUE TO MONITOR.
[2018-03-13 08:00] VITALS: BP 123/59
[2018-03-13] MEDS: DAKINS QUARTER STRENGTH (0.125%) 480 ML BOTTLE TOP SCH (09:00)
[2018-03-13] MEDS: NYSTATIN/TRIAMCIN CREAM 15 GM TUBE TP SCH ×2 (09:00→21:45)
[2018-03-13] MEDS: NYSTATIN TOP POWDER 15 GM BOTTLE TP SCH ×2 (09:00→17:00)
--- NOTE | 2018-03-13 09:00 | NUR ---
m/s assistant restaurant general manager: notes refused wound tx, stated, "the nurse did them late this morning. will continue to monitor.
[2018-03-13] MEDS: SIMVASTATIN 20 MG TABLET PO SCH (09:07)
[2018-03-13] MEDS: AMLODIPINE BESYLATE 5 MG TABLET PO SCH (09:07)
[2018-03-13] MEDS: GABAPENTIN 100 MG CAPSULE PO SCH ×2 (09:08→17:56)
[2018-03-13] MEDS: GLIMEPIRIDE 1 MG TABLET PO SCH ×2 (09:08→17:00)
[2018-03-13] MEDS: INVOKAMET PO SCH ×2 (09:09→17:56)
[2018-03-13] MEDS: HEPARIN SODIUM, PORCINE 5000 UNITS/1 ML VIAL SQ SCH ×2 (09:10→20:43)
--- NOTE | 2018-03-13 10:15 | NUR ---
m/s pan tank worker: md visit pt refused p.t. tx due to c/o dizziness. dr. bustillos in room and aware. pt has no motivation. pt appears depressed. encouraged to verbalized feelings. pt remains non-compliant with turning and repositioning and care. dr. bustillos spoke to сергей (son) and updated plan of care. son wants pt to go to [facility] and doesn't want her to go [facility] as planned. cn aware and will let case management know.
--- NOTE | 2018-03-13 12:00 | NUR ---
m/s director emergency services: notes pt remains non-compliant with tx and turning and repositioning despite encouragement from staff. instructed to call for assistance. will continue to monitor.
[2018-03-13] MEDS: INSULIN REGULAR, HUMAN 100 UNIT/ML 3 ML VIAL SQ PRN ×2 (12:07→22:13)
--- NOTE | 2018-03-13 12:15 | NUR ---
m/s nut tightener: notes pt aware of ct head this afternoon, but pt refused to have it done. daughter here and made aware and wants to wait for сергей (son) to make the decision.
--- NOTE | 2018-03-13 13:35 | NUR ---
m/s monotype operator: notes сергей (son) arrived at this time and made aware that pt is schedule for ct head in a couple of hours, but pt refusing to have it done. pt and son wants ct head to hold off for now. dr. bustillos notified and made aware with no new order.
--- NOTE | 2018-03-13 14:00 | NUR ---
m/s foreign language stenographer: notes pt refused to be repositioned. pt remains non-compliant and still not motivated in plan of care despite encouragement from staff.
--- NOTE | 2018-03-13 14:30 | NUR ---
m/s supervisor lead burning: notes сергей (son) spoke to jeni (case management) re: d'c planning to snf.
[2018-03-13 16:00] VITALS: BP 142/65
--- NOTE | 2018-03-13 16:00 | NUR ---
m/s export freight manager: notes pt called and had a bowel movement. incontinent care rendered by female staff. kept clean and dry. pt still prefers to lay supine. instructed to call for assistance. will continue to monitor.
--- NOTE | 2018-03-13 17:30 | NUR ---
m/s postal service mail processor: notes bs check=[id number]. no s/s of hypo/hyperglycemia reactions noted. amaryl med held. dinner served. daughter at bedside. will re check bs after dinner. instructed to call for assistance. will continue to monitor.
--- NOTE | 2018-03-13 18:05 | NUR ---
m/s paper sales manager: notes pt remains asymptomatic. re check bs=88. daughter remains at bedside. needs attended. pt still eating at this time. will continue to monitor.
[2018-03-13] MEDS: CEFTRIAXONE 1 G in IV D5W 50 ML IV SCH (18:18)
--- NOTE | 2018-03-13 19:23 | NUR ---
MS/RN OPENING NOTES PT RECEIVED AWAKE, SITTING UP IN BED. FAMILY AT BEDSIDE. ON ROOM AIR, BREATHING EVEN AND UNLABORED. DENIES SOB OR PAIN AT THIS TIME. IV TO RIGHT HAND PATENT AND INTACT. WARD IN PLACE AND DRAINING TO GRAVITY. BED IN LOW/LOCKED POSITION WITH CALL LIGHT IN REACH. SIDE RAILS UPX2. WILL CONTINUE TO MONITOR
[2018-03-13 20:00] VITALS: BP 138/68
--- NOTE | 2018-03-13 20:51 | NUR ---
MS/RN NOTES PT REFUSING WOUND CARE AND REPOSITIONING AT THIS TIME. EDUCATED ON IMPORTANCE/COMPLIANCE OF WOUND CARE/TREATMENT AND FREQUENT TURNING/REPOSITIONING. VERBALIZED UNDERSTANDING. ASKED TO "COME BACK LATER"
--- NOTE | 2018-03-13 21:03 | NUR ---
CALLED PHARMACY TO PROVIDE ANOTHER NYSTATIN CREAM.
[2018-03-13] MEDS: CITALOPRAM HYDROBROMIDE 20 MG TABLET PO SCH (22:06)
[2018-03-13] MEDS: ZOLPIDEM TARTRATE 5 MG TABLET PO PRN (22:06)
--- NOTE | 2018-03-13 22:14 | NUR ---
BLOOD [id number], PT REFUSING INSULIN DESPITE EDUCATION X3 ABOUT GOOD GLUCOSE CONTROL AND RISKS/BENEFITS. PT WITH BM, AGREED FOR WOUND CARE TO LEFT THIGH AND LEFT LATERAL THIGH. PERICARE PROVIDED, NYSTATIN CREAM AND POWDER ADMINISTERED PER WOUND CARE. PT REFUSING WOUND CARE TO LEFT POSTERIOR THIGH WOUND. EDUCATED PROVIDED, PT STILL REFUSING. REPOSITIONED
[2018-03-14 06:47] LABS: BASOPHILS # (AUTO) 0.1 /CMM (0.0-0.2); BASOPHILS % (AUTO) 0.7 % (0.0-2.0); EOSINOPHILS % (AUTO) 3.9 % (0.0-6.0); HEMATOCRIT 31 % (33-45); LYMPHOCYTES # (AUTO) 2.4 /CMM (0.8-4.8); LYMPHOCYTES % (AUTO) 25.2 % (20.0-44.0); MEAN CORPUSCULAR HGB CONC 32 g/dl (31.0-36.0); MEAN CORPUSCULAR VOLUME 82 fL (82-100); MONOCYTES # (AUTO) 0.7 /CMM (0.1-1.30); MONOCYTES % (AUTO) 7.6 % (2.0-12.0); NEUTROPHILS # (AUTO) 6.1 /CMM (1.8-8.9); NEUTROPHILS % (AUTO) 62.6 % (43.0-81.0); PLATELET COUNT (AUTO) 417 /CMM (150-450); RDW COEFFICIENT OF VARIATION 14.5 (11.5-15.0); RED BLOOD CELL COUNT(AUTO) 3.82 MIL/uL (4.0-5.2); WHITE BLOOD COUNT (AUTO) 9.7 K/uL (4.3-11.0)
[2018-03-14] MEDS: BLOOD SUGAR DIAGNOSTIC 1 EACH STRIP IN SCH ×3 (06:58→16:28)
[2018-03-14] MEDS: INSULIN REGULAR, HUMAN 100 UNIT/ML 3 ML VIAL SQ PRN (07:01)
--- NOTE | 2018-03-14 07:20 | NUR ---
RN OPEN NOTES RECEIVED REPORT AT BEDSIDE. NO SIGNS AND SYMPTOMS OF DISTRESS OR PAIN. PATIENT IS IN BED, WITH HER EYES CLOSED. EASILY AROUSED TO LIGHT TOUCH. BED IN LOW POSITION, LOCKED AND TWO SIDE RAILS ARE UP. CALL LIGHT WITHIN REACH FOR SAFETY. WILL CONTINUE TO MONITOR PATIENT
--- NOTE | 2018-03-14 07:41 | NUR ---
MS/RN CLOSING NOTES PT RESTING IN BED. EYES CLOSED. AROUSABLE TO NAME. IV TO RIGHT HAND PATENT AND INTACT. A/OX3. ON ROOM AIR, BREATHING EVEN AND UNLABORED. DENIES SOB OR PAIN AT THIS TIME. PT REFUSED TO BE TURNED SINCE 2199. EDUCATED AND ENCOURAGEMENT PROVIDED,RISKS/BENEFITS EXPLAINED. PT STILL REFUSING. PT ALSO REFUSING INSULIN COVERAGE AND CT HEAD WO CONTRAST. ALL WOUND CARE PROVIDED EXCEPT TO LEFT POSTERIOR THIGH. ALL NEEDS MET. BED IN LOW/LOCKED POSITION WITH CALL LIGHT IN REACH. SIDE RAILS UPX2. ENDORSED TO DAY SHIFT RN IRENA.
[2018-03-14 07:49] LABS: CALCIUM, SERUM 8.9 mg/dL (8.5-10.1); CARBON DIOXIDE 28 mmol/L (21-32); CHLORIDE 102 mmol/L (98-107); CREATININE 1.5 mg/dL (0.6-1.3); GLUCOSE 83 mg/dL (74-106); MAGNESIUM 1.6 mg/dL (1.8-2.4); PHOSPHORUS 3.8 mg/dL (2.5-4.9); POTASSIUM 4.3 mmol/L (3.5-5.1); SODIUM SERUM 139 mmol/L (136-145); UREA NITROGEN, BLOOD 28 mg/dL (7-18)
[2018-03-14 08:00] VITALS: BP 123/66
[2018-03-14] MEDS: DAKINS QUARTER STRENGTH (0.125%) 480 ML BOTTLE TOP SCH (08:11)
[2018-03-14] MEDS: NYSTATIN/TRIAMCIN CREAM 15 GM TUBE TP SCH (08:11)
[2018-03-14] MEDS: NYSTATIN TOP POWDER 15 GM BOTTLE TP SCH ×2 (08:11→16:21)
[2018-03-14] MEDS: GABAPENTIN 100 MG CAPSULE PO SCH ×2 (08:15→16:20)
[2018-03-14] MEDS: SIMVASTATIN 20 MG TABLET PO SCH (08:15)
[2018-03-14] MEDS: GLIMEPIRIDE 1 MG TABLET PO SCH ×2 (08:15→16:20)
[2018-03-14] MEDS: INVOKAMET PO SCH ×2 (08:16→16:20)
[2018-03-14] MEDS: AMLODIPINE BESYLATE 5 MG TABLET PO SCH (08:16)
[2018-03-14] MEDS: HEPARIN SODIUM, PORCINE 5000 UNITS/1 ML VIAL SQ SCH (08:21)
[2018-03-14] MEDS: HYDROCODONE/APAP 5/325MG 1 EACH TABLET PO PRN ×2 (09:20→20:41)
--- NOTE | 2018-03-14 10:00 | NUR ---
DRESSING CHANGE COMPLETED PER GRINDER SET UP OPERATOR UNIVERSAL AND HOSPITAL POLICY
[2018-03-14] MEDS ORDERED: IV NS 0.9% 1,000 ML IV ONE (11:30)
[2018-03-14] MEDS ORDERED: GABA100C PO (11:59)
[2018-03-14] MEDS ORDERED: NYST15PO4 TP (11:59)
[2018-03-14] MEDS ORDERED: LEVOFLOXACIN (500MG) 500 MG TABLET PO SCH (12:00)
[2018-03-14] MEDS: Magnesium 1GM/D5W 100ML PREMIX 100 ML IV SCH ×2 (12:07→13:12)
[2018-03-14 15:33] VITALS: BP 120/63
--- NOTE | 2018-03-14 17:00 | NUR ---
PER DR SAUCEDA: DO NOT D/C WARD. PATIENT TO BE DISCHARGE TO [facility] WITH WARD
--- NOTE | 2018-03-14 18:00 | NUR ---
DRESSING CHANGE COMPLETED PER CRACKING STILL OPERATOR AND HOSPITAL POLICY . PICTURES TAKEN AND PLACED IN THE CHART
--- NOTE | 2018-03-14 18:20 | NUR ---
PATIENT'S HOME MEDICATIONS PICKED UP FROM PHARMACY AND GAVE TO PATIENT'S SON, ZEINA
--- NOTE | 2018-03-14 19:14 | NUR ---
RN CLOSING NOTES PATIENT IS IN BED. ALERT AWAKE AND ORIENTED TO NAME, PLACE AND TIME. FAMILY AT BEDSIDE. NO SIGNS AND SYMPTOMS OF DISTRESS. BED IN LOW POSITION, LOCKED AND TWO SIDE RAILS ARE UP. CALL LIGHT WITHIN REACH FOR SAFETY. ALL PATIENT CARE ANTICIPATED AND ATTENDED FOR. PATIENT KEPT CLEAN AND DRY. D/C ORDER FOR TODAY. SPECIAL DIET COOK AT 8:3PM. ALL DISCHARGE DOCUMENT PRINTED, PICTURES TAKEN. WILL ENDORSE TO WORKFORCE STAFFING ADVISOR RN
--- NOTE | 2018-03-14 19:30 | NUR ---
RN NOTE; RECEIVED PT IN BED W/ FAMILY AT THE BED SIDE. BREATHING EVENLY. NO SOB. NAD. NO C/O PAIN OR DISCOMFORT AT THIS TIME. AWAITING FOR THE TRANSPORTATION TO ARRIVE. PAPER WORKS WERE SIGNED BY THE SON AND ALL THE BELONGINGS ARE PICKED UP. PT TO GO WITH THE F/C IN PLACE PER DAY SHIFT REPORT. CURRENTLY F/C IN PLACE DRAINING CLEAR YELLOW URINE. PT IS REQUESTING CELEXA TO BE GIVEN PRIOR TO D/C . NEEDS ATTENDED . BED LOW LOCKED. CALL LIGHT WITHIN REACH. WILL CONT TO MONITOR ,
[2018-03-14 20:00] VITALS: BP 133/66
[2018-03-14] MEDS: CITALOPRAM HYDROBROMIDE 20 MG TABLET PO SCH (20:41)
--- NOTE | 2018-03-14 20:45 | NUR ---
NORCO 5/325 AND CELEXA GIVEN PER PT'S AND FAMILY REQUEST FOR C/O MOD GEN BODY PAIN .WILL CONT TO MONITOR
--- NOTE | 2018-03-14 20:54 | NUR ---
PT WAS PICKED UP BY [facility] VIA GURNEY IN STABLE CONDITION. ALL BELONGING S WERE PICKED UP BY THE FAMILY. IV LINE WAS D/C'D W/ NO COMPLICATIONS.
== END 2018-03-14 20:50 | DRG 951 ==
LOC: ER 20:26 → MED 22:36
PROVIDERS: ADMIT Nurse Practitioner Acute Care; ATTEND Nurse Practitioner Acute Care
DX: N17.0 Acute kidney failure with tubular necrosis (principal); D68.59 Other primary thrombophilia; E11.22 Type 2 diabetes mellitus with diabetic chronic kidney disease; E11.42 Type 2 diabetes mellitus with diabetic polyneuropathy; E11.65 Type 2 diabetes mellitus with hyperglycemia; E87.1 Hypo-osmolality and hyponatremia; L02.416 Cutaneous abscess of left lower limb; L89.890 Pressure ulcer of other site, unstageable; E86.0 Dehydration; E11.9 Type 2 diabetes mellitus without complications; D72.829 Elevated white blood cell count, unspecified; I12.9 Hypertensive chronic kidney disease with stage 1 through stage 4 chronic kidney disease, or unspecified chronic kidney disease; E78.5 Hyperlipidemia, unspecified; M19.90 Unspecified osteoarthritis, unspecified site; Z85.3 Personal history of malignant neoplasm of breast; N18.9 Chronic kidney disease, unspecified; Z90.10 Acquired absence of unspecified breast and nipple; Z79.899 Other long term (current) drug therapy; D63.8 Anemia in other chronic diseases classified elsewhere; Z74.09 Other reduced mobility; M85.9 Disorder of bone density and structure, unspecified; L30.9 Dermatitis, unspecified; N39.0 Urinary tract infection, site not specified; M17.0 Bilateral primary osteoarthritis of knee; B95.1 Streptococcus, group B, as the cause of diseases classified elsewhere; B95.4 Other streptococcus as the cause of diseases classified elsewhere; B96.4 Proteus (mirabilis) (morganii) as the cause of diseases classified elsewhere; E66.01 Morbid (severe) obesity due to excess calories; E86.1 Hypovolemia; Z68.27 Body mass index [BMI] 27.0-27.9, adult
CPT/HCPCS: 36415; 71045-TC; 80048-TC; 80061-TC; 81000-TC; 82550-TC; 82553-TC; 82962-TC; 83735-TC; 84100-TC; 85025-TC; 87070-TC; 87081-TC; 87086-TC; 87186-TC; A4606; A6253; A6402; J0696; J1644; J1815; J3475; J3490; J7030; J7040; J7060; Z7610

== ENCOUNTER 2019-12-03 18:55 | Inpatient (IN) | payer MEDICARE, MEDICAID ==
[~2019-12-03] VITALS: Ht 157.5 cm; Wt 81.2 kg
[~2019-12-03 18:55] MED LIST changes: +ACET-2605 PO; +AMLO5TAB4 PO; +DICL1ADH11 TP; -ENAL5TAB PO; +ERGO500040 PO; +GABA100C PO; +GLIM1TAB18 PO; +NYST15PO4 TP; +SIMV-46 PO; -SIMV20TA6 PO
--- NOTE | 2019-12-03 19:20 | NUR ---
Left lower extremity pain and swelling s/p glf. REDNESS PRESENT. PAIN LEVEL 6/10. DENIES HEAD TRAUMA, DIZZINESS, WEAKNESS, N/V. DENIES SOB. NO ACUTE DISTRESS NOTED. AOX4, VSS, RR EVEN AND UNLABORED ON RA. FINNISH-SPEAKING. FAMILY AT BEDSIDE. ON MONITOR, MADE COMFORTABLE AND READY FOR EVAL.
[2019-12-03] MEDS ORDERED: VANCOMYCIN 1 GM in IV D5W 250 ML IV ONE (20:30)
[2019-12-03 20:50] LABS: BASOPHILS # (AUTO) 0.1 /CMM (0.0-0.2); BASOPHILS % (AUTO) 0.7 % (0.0-2.0); EOSINOPHILS % (AUTO) 0.7 % (0.0-6.0); HEMATOCRIT 32 % (33-45); LYMPHOCYTES # (AUTO) 1.1 /CMM (0.8-4.8); LYMPHOCYTES % (AUTO) 10.2 % (20.0-44.0); MEAN CORPUSCULAR HGB CONC 31 g/dl (31.0-36.0); MEAN CORPUSCULAR VOLUME 84 fL (82-100); MONOCYTES # (AUTO) 0.7 /CMM (0.1-1.30); MONOCYTES % (AUTO) 6.4 % (2.0-12.0); NEUTROPHILS # (AUTO) 9.2 /CMM (1.8-8.9); PLATELET COUNT (AUTO) 338 /CMM (150-450); RED BLOOD CELL COUNT(AUTO) 3.76 MIL/uL (4.0-5.2); WHITE BLOOD COUNT (AUTO) 11.2 K/uL (4.3-11.0)
--- NOTE | 2019-12-03 20:50 | NUR ---
BED ASSIGNMENT MED SURG [id number]
--- NOTE | 2019-12-03 21:04 | NUR ---
ASSISTED PT TO BEDPAN
[2019-12-03 21:18] LABS: ALANINE AMINOTRANSFERASE 13 U/L (12-78); ALBUMIN 2.8 g/dL (3.4-5.0); ALKALINE PHOSPHATASE 113 U/L (46-116); ASPARTATE AMINOTRANSFERASE 15 U/L (15-37); BILIRUBIN,TOTAL 0.2 mg/dL (0.2-1.0); CARBON DIOXIDE 27 mmol/L (21-32); CHLORIDE 97 mmol/L (98-107); POTASSIUM 4.4 mmol/L (3.5-5.1); SODIUM SERUM 134 mmol/L (136-145); TOTAL PROTEIN, SERUM 8.3 g/dL (6.4-8.2); UREA NITROGEN, BLOOD 51 mg/dL (7-18)
[2019-12-03 21:20] LABS: GLUCOSE 414 mg/dL (74-106)
--- NOTE | 2019-12-03 21:20 | NUR ---
PT TAKEN TO CT VIA J[facility]
[2019-12-03] MEDS ORDERED: VANCOMYCIN 1 GM VIAL ONE (21:25)
[2019-12-03] MEDS ORDERED: PIPERACILLIN /TAZOBACTAM 3.375 G VIAL IV ONE (21:26)
[2019-12-03] MEDS: PIPERACILLIN /TAZOBACTAM 3.375 G in IV D5W 50 ML IV ONE ×2 (21:30→21:32)
[2019-12-03] MEDS ORDERED: Z GUARD REMEDY 2 OZ OINT TP PRN (22:00)
[2019-12-03] MEDS: BLOOD SUGAR DIAGNOSTIC 1 EACH STRIP IN SCH (22:00)
[2019-12-03] MEDS ORDERED: MAG HYDROX/AL HYDROX/SIMETH 30 ML UDC PO PRN (22:00)
[2019-12-03] MEDS ORDERED: MORPHINE SULFATE INJ 2 MG/ML DISP.SYRIN IV PRN (22:00)
[2019-12-03] MEDS ORDERED: ONDANSETRON HCL/PF 4 MG/2 ML VIAL IVP PRN (22:00)
[2019-12-03] MEDS: INSULIN LISPRO/ASPART 100 UNIT/ML CARTRIDGE SQ SCH (22:00)
[2019-12-03 22:07] LABS: APPEARANCE,URINE CLOUDY (CLEAR); BILIRUBIN,URINE NEGATIVE (NEGATIVE); BLOOD, URINE SMALL Ery/uL (NEGATIVE); COLOR,URINE YELLOW (YELLOW); KETONES,URINE NEGATIVE (NEGATIVE); LEUKOCYTE ESTERASE ,URINE MODERATE (NEGATIVE); NITRITE, URINE NEGATIVE (NEGATIVE); PH,URINE 5.5 (5.0-8.0); PROTEIN,URINE 30 mg/dl (NEGATIVE); UGLUCOSE >=1000 mg/dL (NEGATIVE); UROBILINOGEN,URINE 0.2 EU/dL (0.2)
[2019-12-03 22:26] LABS: WBC,URINE TOO NUMEROUS TO COUN /HPF (0-3)
[2019-12-03 22:32] LABS: BACTERIA,URINE Moderate /HPF (None Seen)
[2019-12-03 22:33] LABS: SQUAMOUS EPITHELIAL CELL,UR Moderate /HPF (None Seen); YEAST,URINE Many /HPF (None Seen)
--- NOTE | 2019-12-03 22:34 | NUR ---
REPORT GIVEN TO KODI MACIAS FOR 201 MS
--- NOTE | 2019-12-03 22:40 | NUR ---
[facility]
[2019-12-03 22:45] VITALS: BP 155/68
--- NOTE | 2019-12-03 22:45 | NUR ---
RN MS ADMITTING NOTES RECEIVED PATIENT FROM ER VIA GURNEY, SAFELY TRANSFERRED TO BED. AWAKE ALERT AND ORIENTED X 3, RESPIRATIONS EVEN AND UNLABORED WITH EQUAL RISE AND FALL OF CHEST, IV SITE TO LEFT HAND #20 G INTACT AND PATENT, NO REDNESS, NO INFILTRATION PRESENT, ORIENTED TO STAFF AND CALL LIGHT AND KEPT WITHIN REACH, SAFETY PRECAUTIONS IN PLACE, LOW BED AND LOCKED, BELONGINGS LIST DONE, WOUND PHOTOS TAKEN PLACED IN CHART, LEFT FOOT NOTED WITH REDNESS, SWELLING, OFFLOADED WITH PILLOWS, WILL CONTINUE TO MONITOR AND FOLLOW MD ORDERS. ALL NEEDS ATTENDED AT THIS TIME.
[2019-12-03] MEDS: IV NS 0.9% 1,000 ML IV PRN (23:16)
[2019-12-03] MEDS: ACETAMINOPHEN 325 MG TABLET PO PRN (23:26)
--- NOTE | 2019-12-03 23:26 | NUR ---
rn ms notes patient complaint of pain to head and left lower extremity requested for tylenol. prn tylenol given as ordered.
--- NOTE | 2019-12-03 23:40 | NUR ---
RN MS NOTES NOTIFIED HOSPITALIST MADI REGARDING ACCUCHECK 473 AND RETAKEN RESULT 496. NO NEW ORDER AT THIS TIME, CONTINUE IVF PER MADI.
[2019-12-04] MEDS ORDERED: PIPERACILLIN /TAZOBACTAM 3.375 G in IV D5W 50 ML IV SCH ×2
[2019-12-04] MEDS ORDERED: PIPERACILLIN /TAZOBACTAM 3.375 G VIAL IV ONE (02:58)
[2019-12-04] MEDS ORDERED: ZOSYN IVPB 3.375 G in IV D5W 50ml IV ONE (06:00)
[2019-12-04 06:11] VITALS: BP 155/68
[2019-12-04 06:14] LABS: BASOPHILS # (AUTO) 0.1 /CMM (0.0-0.2); BASOPHILS % (AUTO) 0.7 % (0.0-2.0); EOSINOPHILS % (AUTO) 1.9 % (0.0-6.0); HEMATOCRIT 29 % (33-45); HEMOGLOBIN 9.4 g/dL (11.5-14.8); LYMPHOCYTES # (AUTO) 1.7 /CMM (0.8-4.8); LYMPHOCYTES % (AUTO) 19.7 % (20.0-44.0); MEAN CORPUSCULAR HGB CONC 32 g/dl (31.0-36.0); MEAN CORPUSCULAR VOLUME 84 fL (82-100); MONOCYTES # (AUTO) 0.7 /CMM (0.1-1.30); MONOCYTES % (AUTO) 8.3 % (2.0-12.0); NEUTROPHILS # (AUTO) 6.1 /CMM (1.8-8.9); NEUTROPHILS % (AUTO) 69.4 % (43.0-81.0); PLATELET COUNT (AUTO) 300 /CMM (150-450); RED BLOOD CELL COUNT(AUTO) 3.49 MIL/uL (4.0-5.2); WHITE BLOOD COUNT (AUTO) 8.8 K/uL (4.3-11.0)
[2019-12-04] MEDS: BLOOD SUGAR DIAGNOSTIC 1 EACH STRIP IN SCH ×4 (06:22→21:09)
[2019-12-04 06:39] LABS: IRON, SERUM 18 ug/dl (50-175); TOTAL IRON BINDING CAPACITY 187 ug/dl (250-450)
--- NOTE | 2019-12-04 06:40 | NUR ---
RN MS CLOSING NOTES PATIENT IN BED AWAKE ALERT AND ORIENTED X 3, RESPIRATIONS EVEN AND UNLABORED WITH EQUAL RISE AND FALL OF CHEST, IV SITE TO LEFT HAND #20 G INTACT AND PATENT, NO REDNESS, NO INFILTRATION PRESENT, CALL LIGHT KEPT WITHIN REACH, SAFETY PRECAUTIONS IN PLACE, LOW BED AND LOCKED, BED ALARM IN PLACE, PROVIDED WITH PERINEAL CARE, LEFT FOOT NOTED WITH PURULENT DRAINAGE SITE CLEANSED AND KEPT CLEAN. LEFT FOOT NOTED WITH REDNESS, SWELLING, OFFLOADED WITH PILLOWS, ALL DUE MEDICATIONS GIVEN ORDERED, TOLERATED WELL NO ADVERSE REACTIONS PRESENT, FLUIDS OFFERED. PATIENT HEAD OF BED ELEVATED DUE TO REQUEST FR VERTIGO/DIZZINESS. REMAINS COMFORTABLE AT THIS TIME, WILL CONTINUE TO MONITOR AND ENDORSE TO NEXT SHIFT.
[2019-12-04 06:44] LABS: CHOLESTEROL 162 mg/dL (<200); HDL CHOLESTEROL 42 mg/dL (40-60); LDL 102 mg/dL (0-99); THYROID STIMULATING HORMONE 1.797 uIU/mL (0.358-3.74); TRIGLYCERIDES 119 mg/dL (30-150)
[2019-12-04 07:06] LABS: ALANINE AMINOTRANSFERASE 9 U/L (12-78); ALBUMIN 2.4 g/dL (3.4-5.0); ALKALINE PHOSPHATASE 85 U/L (46-116); ASPARTATE AMINOTRANSFERASE 10 U/L (15-37); BILIRUBIN,TOTAL 0.3 mg/dL (0.2-1.0); CALCIUM, SERUM 8.7 mg/dL (8.5-10.1); CARBON DIOXIDE 27 mmol/L (21-32); CHLORIDE 100 mmol/L (98-107); CREATININE 1.9 mg/dL (0.6-1.3); MAGNESIUM 2.1 mg/dL (1.8-2.4); PHOSPHORUS 3.7 mg/dL (2.5-4.9); SODIUM SERUM 136 mmol/L (136-145); TOTAL PROTEIN, SERUM 7.2 g/dL (6.4-8.2); UREA NITROGEN, BLOOD 42 mg/dL (7-18)
--- NOTE | 2019-12-04 07:10 | NUR ---
MS RN OPENING NOTES RECEIVED PATIENT IN BED ALERT AND AWAKE, ORIENTED X3. HOB ELEVATED. NO SOB. DENIES ANY C/O PAIN AT THIS TIME. STILL C/O DIZZINESS BUT LESS COMPARED TO EARLIER PER PATIENT. LEFT HAND # 20 INTACT INFUSING NS @100 ML/HR CLAUDETTE WELL. BED IN LOWEST POSITION, LOCKED. BED ALARM ON. CALL LIGHT WITHIN REACH. BED SIDERAILS UPX2. ABLE TO VERBALIZE NEEDS.
[2019-12-04 07:20] LABS: GLUCOSE 357 mg/dL (74-106)
[2019-12-04] MEDS: INSULIN LISPRO/ASPART 100 UNIT/ML CARTRIDGE SQ SCH (07:30)
--- NOTE | 2019-12-04 07:30 | NUR ---
MS RN NOTES PATENT REFUSED INSULIN DESPITE OF EDUCATION AND EXPLANATIONS OF RISK AND BENEFITS, PER PATIENT, " INSULIN, I WILL . NO INSULIN."
--- NOTE | 2019-12-04 07:30 | NUR ---
MS RN NOTES DR. CAROLINA MADE AWARE OF BS 357 AND PATIENT'S REFUSAL OF INSULIN
[2019-12-04] MEDS ORDERED: FEE PK DOSING 1 MIN EA MC ONE (08:15)
[2019-12-04] MEDS: GABAPENTIN 100 MG CAPSULE PO SCH ×2 (08:30→16:57)
[2019-12-04] MEDS: PANTOPRAZOLE 40 MG TABLET.DR PO SCH (08:30)
[2019-12-04] MEDS: CITALOPRAM HYDROBROMIDE 20 MG TABLET PO SCH (08:30)
[2019-12-04] MEDS: SIMVASTATIN 20 MG TABLET PO SCH (08:31)
[2019-12-04] MEDS: AMLODIPINE BESYLATE 5 MG TABLET PO SCH (08:31)
--- NOTE | 2019-12-04 08:51 | NUR ---
WOUND CARE CONSULT: PT PRESENTS WITH DRAINAGE AND DISCOLORATION TO LEFT GREAT TOE, SACRAL SCARRING AND RASH TO ABDOMINAL FOLDS AND GROIN/PERINEAL AREAS, PRESENT ON ADMISSION. RECOMMEND SURGICAL CONSULT AND DPM CONSULT. DR SWAIN AND DR OAKLEY NOTIFIED OF CONSULT REQUESTS. PT REFUSING TO HAVE DRESSING PLACED ON LEFT GREAT TOE. RECOMMENDATIONS MADE FOR SKIN PROTECTION. DISCUSSED WITH NURSING STAFF. WILL SEE PRN. GARCIA IN AGREEMENT WITH PLAN OF CARE. CURRENT NITA SCORE IS 14. Addendum: 12/04/19 at 0853 by RIVER ESPINOZA WNDNU Amended: Links added.
[2019-12-04] MEDS ORDERED: GLIMEPIRIDE 1 MG TABLET PO SCH (09:00)
[2019-12-04] MEDS: IV NS 0.9% 1,000 ML IV PRN (10:03)
[2019-12-04] MEDS: BLOOD SUGAR DIAGNOSTIC 1 EACH STRIP VI SCH ×3 (12:30→21:09)
[2019-12-04] MEDS ORDERED: INSULIN REGULAR, HUMAN 100 UNIT/ML 3 ML VIAL SQ PRN (12:30)
[2019-12-04] MEDS ORDERED: *INSULIN REGULAR(HUMULIN R)HUM 100 UNIT/ML VIAL SQ PRN (12:30)
[2019-12-04] MEDS ORDERED: DEXTROSE 50%-WATER 50 ML DISP.SYRIN IV PRN (12:30)
--- NOTE | 2019-12-04 12:33 | NUR ---
Social service consult requested by for information on Advance Directives per son Emil's request. GRAVITY PROSPECTING OPERATOR met with pt's son Emil and explained the Advance Directive form and process. Per Emil, he thinks the pt. might have one already, however he did take the form. No other social service needs are requested at this time.
[2019-12-04] MEDS: PIPERACILLIN /TAZOBACTAM 3.375 G in IV D5W 100 ML IV SCH ×2 (12:43→20:16)
[2019-12-04] MEDS ORDERED: LIDOCAINE 1% INJ 50 ML MDV IJ ONE (13:00)
--- NOTE | 2019-12-04 14:00 | NUR ---
MS RN NOTES S/P WOUND DEBRIDEMENT OF LEFT GREAT TOE, DONE BY DPM DR. ARORA, CLAUDETTE WELL WITH ADMINISTRATION OF XYLOCAINE
--- NOTE | 2019-12-04 14:00 | NUR ---
MS RN NOTES S/P WOUND DEBRIDEMENT DONE BY DPM DR. ARORA, CLAUDETTE WELL WITH ADMINISTRATION OF XYLOCAINE.
--- NOTE | 2019-12-04 14:40 | NUR ---
MS RN NOTE PATIENT OFF UNIT, PATIENT GOING TO MRI
--- NOTE | 2019-12-04 15:22 | NUR ---
MS RN NOTE PATIENT RETURNED TO UNIT FROM MRI OF LEFT FOOT
[2019-12-04 15:34] LABS: CREATININE, URINE 16.8 MG/DL (30.0-125.0); URINE TOTAL PROTEIN 53.8 mg/dL (0-11.9)
--- NOTE | 2019-12-04 15:35 | NUR ---
MS RN NOTES BARCODE NOT SCANNING. MORPHINE GIVEN ORDERED FOR PAIN, CLAUDETTE WELL. NO ASE NOTED.
[2019-12-04] MEDS: NYSTATIN TOP POWDER 15 GM BOTTLE TP SCH ×2 (15:46→21:10)
--- NOTE | 2019-12-04 16:31 | NUR ---
PT WANTS THE ARTERIAL DPLR OF LOWER EXT EXAM DONE TOMORROW DUE TO PAIN OF LEFT FOOT S/P DEBRIDEMENT SURGERY OF LEFT BIG TOE.
[2019-12-04] MEDS: CANAGLIFLOZIN PO SCH (16:57)
[2019-12-04] MEDS: METFORMIN HCL PO SCH (16:57)
[2019-12-04] MEDS: HYDROCODONE/APAP 5/325MG 1 EACH TABLET PO PRN ×2 (16:57→21:08)
[2019-12-04 16:59] LABS: APPEARANCE,URINE CLEAR (CLEAR); BILIRUBIN,URINE NEGATIVE (NEGATIVE); BLOOD, URINE SMALL Ery/uL (NEGATIVE); COLOR,URINE YELLOW (YELLOW); KETONES,URINE NEGATIVE (NEGATIVE); LEUKOCYTE ESTERASE ,URINE MODERATE (NEGATIVE); NITRITE, URINE NEGATIVE (NEGATIVE); PROTEIN,URINE 30 mg/dl (NEGATIVE); UGLUCOSE >=1000 mg/dL (NEGATIVE); UROBILINOGEN,URINE 0.2 EU/dL (0.2)
[2019-12-04 17:59] LABS: BACTERIA,URINE Many /HPF (None Seen); MUCUS,URINE Moderate /LPF (None Seen); RBC,URINE TOO NUMEROUS TO COUN /HPF (0-2); SQUAMOUS EPITHELIAL CELL,UR Many /HPF (None Seen); URINE AMORPHOUS URATE Many /HPF (None Seen); WBC,URINE 21-50 /HPF (0-3)
[2019-12-04 18:01] LABS: EOSINOPHIL,URINE None Seen
--- NOTE | 2019-12-04 19:05 | NUR ---
RN MS OPENING NOTES PATIENT IN BED AWAKE ALERT AND ORIENTED X 3, RESPIRATIONS EVEN AND UNLABORED WITH EQUAL RISE AND FALL OF CHEST, IV SITE TO LEFT HAND #20 G AND IV SITE TO RIGHT WRIST #20 INTACT AND PATENT, NO REDNESS, NO INFILTRATION PRESENT, IVF RUNNING ORDERED, CALL LIGHT KEPT WITHIN REACH, SAFETY PRECAUTIONS IN PLACE, LOW BED AND LOCKED, BED ALARM IN PLACE, , LEFT FOOT WITH INTACT DRESSING C/D/I. OFFLOADED WITH PILLOWS, TOLERATED WELL NO ADVERSE REACTIONS PRESENT, FLUIDS OFFERED. PATIENT HEAD OF BED ELEVATED DUE TO REQUEST FR VERTIGO/DIZZINESS. REMAINS COMFORTABLE AT THIS TIME, WILL CONTINUE TO MONITOR AND ATTEND TO NEEDS.
--- NOTE | 2019-12-04 19:47 | NUR ---
MS RN CLOSING NOTES ALERT AND AWAKE, ORIENTED X3. HOB ELEVATED. NO S/S OF RESPIRATORY DISTRESS. DENIES ANY C/O PAIN NOR DISCOMFORT AT THIS TIME. S/P LEFT GREAT TO DEBRIDEMENT WITH DRESSING INTACT. PATIENT DENIES ANY C/O OF DIZZINESS. LEFT HAND # 22 AND LEFT WRIST GAUGE # 20 INTACT AND PATENT INFUSING NS @100 ML/HR CLAUDETTE WELL. BED IN LOWEST POSITION, LOCKED. BED ALARM ON. CALL LIGHT WITHIN REACH. BED SIDERAILS UPX2. IN NO APPARENT DISTRESS.
[2019-12-04 20:00] VITALS: BP 148/68
--- NOTE | 2019-12-04 21:08 | NUR ---
rn ms notes patient complaint of pain to left lower ext 5/10 requested for norco prn given as ordered, will continue to monitor for effectiveness.
[2019-12-04] MEDS ORDERED: VANCOMYCIN 1 GM in IV D5W 250 ML IV SCH (22:00)
[2019-12-05] MEDS: PIPERACILLIN /TAZOBACTAM 3.375 G in IV D5W 100 ML IV SCH ×2 (04:30→12:18)
[2019-12-05] MEDS: BLOOD SUGAR DIAGNOSTIC 1 EACH STRIP VI SCH ×4 (06:15→22:22)
[2019-12-05] MEDS: BLOOD SUGAR DIAGNOSTIC 1 EACH STRIP IN SCH ×4 (06:15→22:00)
[2019-12-05 06:29] LABS: BASOPHILS # (AUTO) 0.1 /CMM (0.0-0.2); BASOPHILS % (AUTO) 0.7 % (0.0-2.0); EOSINOPHILS % (AUTO) 3.9 % (0.0-6.0); HEMATOCRIT 27 % (33-45); HEMOGLOBIN 8.9 g/dL (11.5-14.8); LYMPHOCYTES # (AUTO) 1.8 /CMM (0.8-4.8); LYMPHOCYTES % (AUTO) 21.9 % (20.0-44.0); MEAN CORPUSCULAR HGB CONC 33 g/dl (31.0-36.0); MEAN CORPUSCULAR VOLUME 83 fL (82-100); MONOCYTES # (AUTO) 0.6 /CMM (0.1-1.30); MONOCYTES % (AUTO) 7.5 % (2.0-12.0); NEUTROPHILS # (AUTO) 5.6 /CMM (1.8-8.9); PLATELET COUNT (AUTO) 309 /CMM (150-450); WHITE BLOOD COUNT (AUTO) 8.5 K/uL (4.3-11.0)
[2019-12-05 06:46] LABS: ALANINE AMINOTRANSFERASE 21 U/L (12-78); ALBUMIN 2.2 g/dL (3.4-5.0); ALKALINE PHOSPHATASE 107 U/L (46-116); ASPARTATE AMINOTRANSFERASE 41 U/L (15-37); BILIRUBIN,TOTAL 0.3 mg/dL (0.2-1.0); CALCIUM, SERUM 8.4 mg/dL (8.5-10.1); CARBON DIOXIDE 29 mmol/L (21-32); CHLORIDE 103 mmol/L (98-107); CREATININE 1.9 mg/dL (0.6-1.3); GLUCOSE 149 mg/dL (74-106); MAGNESIUM 1.9 mg/dL (1.8-2.4); PHOSPHORUS 3.9 mg/dL (2.5-4.9); POTASSIUM 3.9 mmol/L (3.5-5.1); SODIUM SERUM 140 mmol/L (136-145); TOTAL PROTEIN, SERUM 7.1 g/dL (6.4-8.2); UREA NITROGEN, BLOOD 36 mg/dL (7-18)
--- NOTE | 2019-12-05 06:50 | NUR ---
RN MS CLOSING NOTES PATIENT IN BED AWAKE ALERT AND ORIENTED X 3, RESPIRATIONS EVEN AND UNLABORED WITH EQUAL RISE AND FALL OF CHEST, IV SITE TO LEFT HAND #20 G AND IV SITE TO RIGHT WRIST #20 INTACT AND PATENT, NO REDNESS, NO INFILTRATION PRESENT, IVF RUNNING ORDERED, CALL LIGHT KEPT WITHIN REACH, SAFETY PRECAUTIONS IN PLACE, LOW BED AND LOCKED, BED ALARM IN PLACE, , LEFT FOOT WITH INTACT DRESSING C/D/I. OFFLOADED WITH PILLOWS, TOLERATED MEDICATIONS WELL NO ADVERSE REACTIONS PRESENT, FLUIDS OFFERED. PATIENT HEAD OF BED ELEVATED DUE TO REQUEST FR VERTIGO/DIZZINESS. REMAINS COMFORTABLE AT THIS TIME, WILL CONTINUE TO MONITOR AND ATTEND TO NEEDS AND ENDORSE TO NEXT SHIFT, PERINEAL CARE PROVIDED, WOUND CARE DONE ORDERED. ALL NEEDS ATTENDED
[2019-12-05 06:55] LABS: CREATINE KINASE, TOTAL 183 U/L (26-192)
--- NOTE | 2019-12-05 07:13 | NUR ---
MS RN OPENING NOTES RECEIVED PATIENT IN BED ALERT AND AWAKE, ORIENTED X3. HOB ELEVATED. NO SOB. DENIES ANY C/O PAIN AT THIS TIME. LEFT WRIST # 20 SL AND LEFT HAND # 22 INTACT AND PATENT INFUSING NS @100 ML/HR CLAUDETTE WELL. BED IN LOWEST POSITION, LOCKED. BED ALARM ON. CALL LIGHT WITHIN REACH. BED SIDERAILS UPX2. ABLE TO VERBALIZE NEEDS.
[2019-12-05 07:55] VITALS: BP 133/69
[2019-12-05] MEDS: PANTOPRAZOLE 40 MG TABLET.DR PO SCH (08:27)
[2019-12-05] MEDS: CITALOPRAM HYDROBROMIDE 20 MG TABLET PO SCH (08:34)
[2019-12-05] MEDS: CANAGLIFLOZIN PO SCH ×2 (08:34→17:24)
[2019-12-05] MEDS: METFORMIN HCL PO SCH ×2 (08:34→17:24)
[2019-12-05] MEDS: GABAPENTIN 100 MG CAPSULE PO SCH ×2 (08:34→17:23)
[2019-12-05] MEDS: SIMVASTATIN 20 MG TABLET PO SCH (08:35)
[2019-12-05] MEDS: HYDROCODONE/APAP 5/325MG 1 EACH TABLET PO PRN (08:35)
[2019-12-05] MEDS: AMLODIPINE BESYLATE 5 MG TABLET PO SCH (08:35)
[2019-12-05] MEDS: NYSTATIN TOP POWDER 15 GM BOTTLE TP SCH ×2 (09:22→17:25)
[2019-12-05] MEDS ORDERED: VITAMINS A AND D 56.7 GM TUBE TP PRN (14:30)
[2019-12-05 16:00] VITALS: BP 138/60
--- NOTE | 2019-12-05 17:33 | NUR ---
MS RN NOTE PATIENT SEEN BY DR. LARIOS (VASCULAR).
[2019-12-05] MEDS ORDERED: [UNRECOGNIZED DRUG - OTHER] EACHEYE PRN (18:30)
--- NOTE | 2019-12-05 19:10 | NUR ---
MS RN CLOSING NOTES ALERT AND AWAKE, ORIENTED X3. HOB ELEVATED. NO S/S OF RESPIRATORY DISTRESS. DENIES ANY C/O PAIN NOR DISCOMFORT AT THIS TIME. SWOUND CARE DONE TO LEFT GREAT TOE CLAUDETTE WELL. PATIENT DENIES ANY C/O OF DIZZINESS. LEFT HAND # 22 AND LEFT WRIST GAUGE # 20 INTACT AND PATENT INFUSING NS @100 ML/HR CLAUDETTE WELL. BED IN LOWEST POSITION, LOCKED. BED ALARM ON. CALL LIGHT WITHIN REACH. BED SIDERAILS UPX2. IN NO APPARENT DISTRESS.
[2019-12-05] MEDS: IV NS 0.9% 1,000 ML IV PRN (19:48)
[2019-12-05 20:23] VITALS: BP 136/57
--- NOTE | 2019-12-05 20:34 | NUR ---
MS2/RN PATIENT IS AWAKE, ALERT, ORIENTED, COMFORTABLE, NO DISTRESS NOTED, CALL LIGHT IN REACH, FALL PRECAUTIONS, WILL MONITOR.
[2019-12-05] MEDS: CEFAZOLIN 1 GM in IV NS 0.9% 50 ML IV SCH (21:03)
[2019-12-05] MEDS: ZOLPIDEM TARTRATE 5 MG TABLET PO PRN (22:11)
[2019-12-06] MEDS ORDERED: PIPERACILLIN /TAZOBACTAM 3.375 G in IV D5W 100 ML IV SCH ×2
--- NOTE | 2019-12-06 02:27 | NUR ---
MS2/RN PATIENT IS SLEEPING AT THIS TIME, APPEAR COMFORTABLE, NO SIGNS OF DISTRESS NOTED, CALL LIGHT IN REACH. WILL CONTINUE TO MONITOR.
--- NOTE | 2019-12-06 05:49 | NUR ---
MS2/RN MORNING CARE DONE, GOOD SKIN CARE DONE, TOTAL LINEN CHANGE RENDERED, REPOSITIONED TO COMFORT, WILL CONTINUE TO MONITOR.
--- NOTE | 2019-12-06 06:27 | NUR ---
MS2/RN PATIENT IS AWAKE, COMFORTABLE, NO DISTRESS NOTED, CALL LIGHT IN REACH, ALL NEEDS ATTENDED AT THIS TIME, WILL CONTINUE TO MONITOR.
[2019-12-06] MEDS: BLOOD SUGAR DIAGNOSTIC 1 EACH STRIP IN SCH (06:33)
[2019-12-06 06:42] LABS: CALCIUM, SERUM 8.4 mg/dL (8.5-10.1); CARBON DIOXIDE 28 mmol/L (21-32); CHLORIDE 106 mmol/L (98-107); CREATININE 1.9 mg/dL (0.6-1.3); GLUCOSE 105 mg/dL (74-106); POTASSIUM 3.9 mmol/L (3.5-5.1); SODIUM SERUM 142 mmol/L (136-145); UREA NITROGEN, BLOOD 30 mg/dL (7-18)
[2019-12-06] MEDS: IV NS 0.9% 1,000 ML IV PRN ×2 (06:46→17:19)
--- NOTE | 2019-12-06 07:10 | NUR ---
MS RN OPENING NOTES RECEIVED PATIENT IN BED LISTENING TO PORTABLE RADIO. . HOB ELEVATED. NO SOB. DENIES ANY C/O PAIN AT THIS TIME. LEFT WRIST # 20 SL AND LEFT HAND # 22 INTACT AND PATENT INFUSING NS @100 ML/HR CLAUDETTE WELL. BED IN LOWEST POSITION, LOCKED. BED ALARM ON. CALL LIGHT WITHIN REACH. BED SIDERAILS UPX2. ABLE TO VERBALIZE NEEDS.
[2019-12-06 08:00] VITALS: BP 136/68
[2019-12-06 08:06] LABS: PTH, INTACT 54 pg/mL (15-65)
[2019-12-06] MEDS: BLOOD SUGAR DIAGNOSTIC 1 EACH STRIP VI SCH ×4 (08:14→21:11)
[2019-12-06] MEDS: PANTOPRAZOLE 40 MG TABLET.DR PO SCH (08:15)
[2019-12-06] MEDS: GABAPENTIN 100 MG CAPSULE PO SCH ×2 (08:15→17:02)
[2019-12-06] MEDS: SIMVASTATIN 20 MG TABLET PO SCH (08:15)
[2019-12-06] MEDS: AMLODIPINE BESYLATE 5 MG TABLET PO SCH (08:15)
[2019-12-06] MEDS: CITALOPRAM HYDROBROMIDE 20 MG TABLET PO SCH (08:15)
[2019-12-06] MEDS: METFORMIN HCL PO SCH (08:17)
[2019-12-06] MEDS: CANAGLIFLOZIN PO SCH (08:17)
[2019-12-06] MEDS: NYSTATIN TOP POWDER 15 GM BOTTLE TP SCH ×2 (09:16→17:02)
[2019-12-06] MEDS: CEFAZOLIN 1 GM in IV NS 0.9% 50 ML IV SCH ×2 (09:17→21:11)
[2019-12-06] MEDS: Z GUARD REMEDY 2 OZ OINT TP SCH ×2 (10:30→21:11)
[2019-12-06] MEDS: HYDROCODONE/APAP 5/325MG 1 EACH TABLET PO PRN ×2 (12:20→21:53)
[2019-12-06 16:00] VITALS: BP 144/70
[2019-12-06 16:07] LABS: *SPE A/G RATIO 0.6 (0.7-1.7); *SPE ALBUMIN 2.3 g/dL (2.9-4.4); *SPE ALPHA-1-GLOBULIN 0.3 g/dL (0.0-0.4); *SPE ALPHA-2-GLOBULIN 1.1 g/dL (0.4-1.0); *SPE M-SPIKE Not Observed g/dL (Not Observed); *SPEGAMMA GLOBULIN 1.7 g/dL (0.4-1.8)
--- NOTE | 2019-12-06 16:22 | NUR ---
MS RN NOTES SPOKE TO MOODY FROM DIETARY, INFORMED MOODY REGARDING FAMILY REQUEST FOR MODERATION IN SERVING OF STARCH SUCH RICE AND BREAD AND MORE OF VEGETABLE.
[2019-12-06] MEDS: METFORMIN 500 MG TABLET PO SCH (17:02)
--- NOTE | 2019-12-06 19:00 | NUR ---
MS RN CLOSING NOTES PATIENT RESTING COMFORTABLY IN BED. NO S/S OF RESPIRATORY DISTRESS. DENIES ANY C/O PAIN AT THIS TIME. RIGHT BASILIC ARM PICC LINE DOUBLE LUMEN 36 CM INTACT AND PATENT INFUSING NS @100 ML/HR CLAUDETTE WELL. WOUND CARE RENDERED CLAUDETTE WELL. EDUCATED PATIENT ABOUT TURNING AND REPOSITIONING DUE TO MASD OF PERINEAL AREA DESPITE OF EDUCATION, ENCOURAGEMENT AND EXPLANATIONS OF RISKS AND BENEFITS, PATIENT PREFERS TO BE SITTING UP IN BED IN SUPINE POSITION. PATIENT ABLE TO MOVE INDEPENDENTLY IN BED. BED IN LOWEST POSITION, LOCKED. BED ALARM ON. CALL LIGHT WITHIN REACH. BED SIDERAILS UPX2. ABLE TO VERBALIZE NEEDS. IN NO APPARENT DISTRESS.
--- NOTE | 2019-12-06 19:03 | NUR ---
MS RN NOTES PICC LINE NURSE, JENNA INSERTED PICC LINE TO RIGHT BASILIC 30 CM. PATIENT CLAUDETTE WELL.
--- NOTE | 2019-12-06 19:40 | NUR ---
MS RN NOTE: PATIENT RESTING IN BED, NO ACUTE DISTRESS NOTED. BREATHING EVEN AND UNLABORED, NO SOB NOTED. PICC LINE TO SONYA IN PLACE. BED LOCKED AND IN LOWEST POSITION, CALL LIGHT IN REACH. WILL CONTINUE TO MONITOR.
[2019-12-06 20:22] VITALS: BP 140/65
--- NOTE | 2019-12-06 22:00 | NUR ---
MS RN NOTE: PATIENT COMPLAINS OF PAIN TO LEFT FOOT 05/01, NORCO 5/325MG 1 TAB ORAL GIVEN PER MD ORDER. WILL CONTINUE TO MONITOR.
[2019-12-06] MEDS: ZOLPIDEM TARTRATE 5 MG TABLET PO PRN (22:42)
--- NOTE | 2019-12-06 22:45 | NUR ---
MS RN NOTE: PATIENT RESTING FOR SLEEPING MEDICATIONS. AMBIEN 5MG 1 TAB ORAL GIVEN PER MD ORDER. WILL CONTINUE TO MONITOR.
[2019-12-07] MEDS: IV NS 0.9% 1,000 ML IV PRN ×2 (05:07→17:07)
--- NOTE | 2019-12-07 06:10 | NUR ---
MS RN NOTE: PATIENT RESTING IN BED, NO ACUTE DISTRESS NOTED. BREATHING EVEN AND UNLABORED, NO SOB NOTED. PICC LINE TO SONYA IN PLACE, INFUSING NS AT . BED LOCKED AND IN LOWEST POSITION, CALL LIGHT IN REACH. WILL ENDORSE TO DAY NURSE TO CONTINUE WITH PLAN OF CARE.
--- NOTE | 2019-12-07 07:15 | NUR ---
MS RN OPENING NOTES RECEIVED PT IN BED, AWAKE, A/OX3. PT TOLERATING RA, WITH NO ACUTE RESPIRATORY DISTRESS NOTED. PT DENIES PAIN OR ANY DISCOMFORT AT THIS TIME. PT ALSO DENIES CONCERNS OR QUESTIONS AT THE MOMENT. IVF NS AT 100ML/HR TO SONYA PICC DOUBLE LUMEN, INTACT AND OPERATIONAL. PT KEPT COMFORTABLE. PT'S BED IN LOWEST LOCKED POSITION WITH SR X3. CALL LIGHT KEPT WITHIN REACH. WILL CONTINUE PLAN OF CARE.
[2019-12-07 07:20] LABS: CALCIUM, SERUM 8.4 mg/dL (8.5-10.1); CARBON DIOXIDE 27 mmol/L (21-32); CHLORIDE 107 mmol/L (98-107); CREATININE 1.6 mg/dL (0.6-1.3); GLUCOSE 130 mg/dL (74-106); POTASSIUM 4.1 mmol/L (3.5-5.1); SODIUM SERUM 142 mmol/L (136-145); UREA NITROGEN, BLOOD 25 mg/dL (7-18)
--- NOTE | 2019-12-07 07:32 | NUR ---
MS RN NOTES SEEN AND EVALUATED BY DR MENA, WITH NO NEW ORDERS NOTED AT THIS TIME.
[2019-12-07] MEDS: BLOOD SUGAR DIAGNOSTIC 1 EACH STRIP VI SCH ×4 (07:44→21:29)
[2019-12-07 08:00] VITALS: BP 158/72
[2019-12-07] MEDS: SIMVASTATIN 20 MG TABLET PO SCH (08:15)
[2019-12-07] MEDS: GABAPENTIN 100 MG CAPSULE PO SCH ×2 (08:15→16:54)
[2019-12-07] MEDS: METFORMIN 500 MG TABLET PO SCH ×2 (08:15→16:54)
[2019-12-07] MEDS: CEFAZOLIN 1 GM in IV NS 0.9% 50 ML IV SCH ×2 (08:15→20:01)
[2019-12-07] MEDS: PANTOPRAZOLE 40 MG TABLET.DR PO SCH (08:15)
[2019-12-07] MEDS: AMLODIPINE BESYLATE 5 MG TABLET PO SCH (08:16)
[2019-12-07] MEDS: CITALOPRAM HYDROBROMIDE 20 MG TABLET PO SCH (08:16)
[2019-12-07] MEDS: NYSTATIN TOP POWDER 15 GM BOTTLE TP SCH ×2 (08:20→16:54)
[2019-12-07] MEDS: Z GUARD REMEDY 2 OZ OINT TP SCH ×2 (08:21→21:42)
[2019-12-07] MEDS: ACETAMINOPHEN 325 MG TABLET PO PRN (14:48)
[2019-12-07 16:00] VITALS: BP 134/68
--- NOTE | 2019-12-07 19:20 | NUR ---
MS RN CLOSING NOTES PT REMAINS IN BED, AWAKE, A/OX3. PT TOLERATING RA, WITH NO ACUTE RESPIRATORY DISTRESS NOTED. PT DENIES PAIN OR ANY DISCOMFORT AT THIS TIME. IVF NS AT 100ML/HR TO SONYA PICC DOUBLE LUMEN, INTACT AND OPERATIONAL. PT KEPT COMFORTABLE. ALL NEEDS AND CARE ATTENDED. PT'S BED IN LOWEST LOCKED POSITION WITH SR X3. CALL LIGHT KEPT WITHIN REACH. WILL ENDORSE TO INCOMING NIGHT NURSE FOR IRENA.
[2019-12-07 20:00] VITALS: BP 132/72
--- NOTE | 2019-12-07 20:00 | NUR ---
PM NOTES RECEIVED PATIENT IN BED, ALERT AND ORIENTED X3, ON ROOM AIR, NO COMPLAIN OF PAIN, CALM, COOPERATIVE, BEDREST, LEFT GREAT TOE SECURED WITH DRESSING, OFFLOADED, IVF AT 75 ML/HR, PICC LINE SECURED WITH DRESSING, CLEAN, DRY AND INTACT, WILL CONTINUE TO MONITOR
[2019-12-07] MEDS: ZOLPIDEM TARTRATE 5 MG TABLET PO PRN (21:35)
[2019-12-07 22:00] VITALS: BP 132/72
[2019-12-08] MEDS: IV NS 0.9% 1,000 ML IV PRN ×2 (03:57→16:26)
--- NOTE | 2019-12-08 06:12 | NUR ---
PATIENT ALERT AND ORIENTED X3, ROOM AIR, NO DISTRESS, BG AT HS 141 NO INSULIN COVERAGE, HAS ALLERGY TO INSULIN, SONYA PICC LINE PATENT AND INFUSING WELL, GIVEN AMBIEN, CONTINUE ANCEF X6 WEEKS FOR OSTEOMYELITIS, WOUND CARE PERFORMED, DISCHARGE PLANNING TO [facility], PT LIVES ALONE.
[2019-12-08] MEDS: BLOOD SUGAR DIAGNOSTIC 1 EACH STRIP VI SCH ×4 (06:38→21:05)
[2019-12-08 08:00] VITALS: BP 153/70
[2019-12-08] MEDS: METFORMIN 500 MG TABLET PO SCH ×2 (08:11→16:26)
[2019-12-08] MEDS: CITALOPRAM HYDROBROMIDE 20 MG TABLET PO SCH (08:12)
[2019-12-08] MEDS: AMLODIPINE BESYLATE 5 MG TABLET PO SCH (08:12)
[2019-12-08] MEDS: CEFAZOLIN 1 GM in IV NS 0.9% 50 ML IV SCH ×2 (08:13→20:20)
[2019-12-08] MEDS: PANTOPRAZOLE 40 MG TABLET.DR PO SCH (08:13)
[2019-12-08] MEDS: GABAPENTIN 100 MG CAPSULE PO SCH ×2 (08:13→16:25)
[2019-12-08] MEDS: SIMVASTATIN 20 MG TABLET PO SCH (08:13)
[2019-12-08] MEDS: Z GUARD REMEDY 2 OZ OINT TP SCH ×2 (08:14→20:21)
[2019-12-08] MEDS: ACETAMINOPHEN 325 MG TABLET PO PRN (08:17)
[2019-12-08] MEDS: NYSTATIN TOP POWDER 15 GM BOTTLE TP SCH ×2 (08:20→16:27)
[2019-12-08 08:52] LABS: CALCIUM, SERUM 8.2 mg/dL (8.5-10.1); CARBON DIOXIDE 24 mmol/L (21-32); CHLORIDE 107 mmol/L (98-107); CREATININE 1.5 mg/dL (0.6-1.3); GLUCOSE 142 mg/dL (74-106); POTASSIUM 4.2 mmol/L (3.5-5.1); SODIUM SERUM 140 mmol/L (136-145); UREA NITROGEN, BLOOD 26 mg/dL (7-18)
[2019-12-08] MEDS ORDERED: ERGOCALCIFEROL (VITAMIN D 2) 50,000 UNIT CAPSULE PO SCH (09:00)
[2019-12-08 10:27] LABS: ALBUMIN 2.1 g/dL (3.4-5.0); BILIRUBIN,TOTAL 0.1 mg/dL (0.2-1.0); MAGNESIUM 1.5 mg/dL (1.8-2.4); PHOSPHORUS 3.2 mg/dL (2.5-4.9)
[2019-12-08 10:37] LABS: BASOPHILS # (AUTO) 0.1 /CMM (0.0-0.2); EOSINOPHILS % (AUTO) 2.4 % (0.0-6.0); HEMATOCRIT 29 % (33-45); HEMOGLOBIN 9.4 g/dL (11.5-14.8); LYMPHOCYTES # (AUTO) 1.6 /CMM (0.8-4.8); LYMPHOCYTES % (AUTO) 17.6 % (20.0-44.0); MEAN CORPUSCULAR HGB CONC 32 g/dl (31.0-36.0); MEAN CORPUSCULAR VOLUME 84 fL (82-100); MONOCYTES # (AUTO) 0.5 /CMM (0.1-1.30); MONOCYTES % (AUTO) 5.4 % (2.0-12.0); NEUTROPHILS # (AUTO) 6.8 /CMM (1.8-8.9); NEUTROPHILS % (AUTO) 73.6 % (43.0-81.0); PLATELET COUNT (AUTO) 305 /CMM (150-450); RED BLOOD CELL COUNT(AUTO) 3.46 MIL/uL (4.0-5.2); WHITE BLOOD COUNT (AUTO) 9.2 K/uL (4.3-11.0)
[2019-12-08 16:00] VITALS: BP 138/74
[2019-12-08] MEDS ORDERED: MAGNESIUM OXIDE 400 MG TABLET PO SCH (16:00)
[2019-12-08] MEDS ORDERED: MAGNESIUM OXIDE 400 MG TABLET PO ONE (16:30)
--- NOTE | 2019-12-08 19:05 | NUR ---
RN MS OPENING NOTES RECEIVED PATIENT IN BED AWAKE ALERT AND ORIENTED X3, RESPIRATIONS EVEN AND UNLABORED WITH EQUAL RISE AND FALL OF CHEST, DENIES ANY PAIN OR DISCOMFORT AT THIS TIME, RIGHT UPPER ARM PICC LINE INTACT AND PATENT, DRESSING IS C/D/I NO REDNESS, NO INFILTRATION PRESENT, IVF RUNNING ORDERED, ORIENTED TO STAFF AND CALL LIGHT AND KEPT WITHIN REACH, SAFETY PRECAUTIONS IN PLACE, LOW BED AND LOCKED ,ALL NEEDS ATTENDED AT THIS TIME, WILL CONTINUE TO MONITOR AND ATTEND TO NEEDS.
[2019-12-08 20:00] VITALS: BP 139/71
[2019-12-08] MEDS: HYDROCODONE/APAP 5/325MG 1 EACH TABLET PO PRN (20:29)
--- NOTE | 2019-12-08 20:29 | NUR ---
RN MS NOTES PATIENT STATES PANIN 06/01 REQUESTING FOR PAIN MEDICATION NORCO PRN NORCO GIVEN ORDERED WILL CONTINUE TO MONITOR FOR EFFECTIVENESS, VS WNL.
[2019-12-08 21:14] VITALS: BP 139/71
[2019-12-08] MEDS: ZOLPIDEM TARTRATE 5 MG TABLET PO PRN (22:50)
--- NOTE | 2019-12-08 22:52 | NUR ---
RN MS NOTES PATIENT UNABLE TO SLEEP REQUESTED FOR AMBIEN AMBIEN PRN GIVEN ORDERED, WILL CONTINUE TO MONITOR FOR EFFECTIVENESS.
[2019-12-09] MEDS: IV NS 0.9% 1,000 ML IV PRN (05:54)
[2019-12-09] MEDS: BLOOD SUGAR DIAGNOSTIC 1 EACH STRIP VI SCH ×2 (06:45→12:45)
--- NOTE | 2019-12-09 07:26 | NUR ---
RN MS CLOSING NOTES PATIENT IN BED AWAKE ALERT AND ORIENTED X3, RESPIRATIONS EVEN AND UNLABORED WITH EQUAL RISE AND FALL OF CHEST, DENIES ANY PAIN OR DISCOMFORT AT THIS TIME, RIGHT UPPER ARM PICC LINE INTACT AND PATENT, DRESSING IS C/D/I NO REDNESS, NO INFILTRATION PRESENT, IVF RUNNING ORDERED, CALL LIGHT KEPT WITHIN REACH, SAFETY PRECAUTIONS IN PLACE, LOW BED AND LOCKED ,ALL NEEDS ATTENDED AT THIS TIME, WILL CONTINUE TO MONITOR AND ATTEND TO NEEDS AND ENDORSE TO NEXT SHIFT ALL DUE MEDS GIVEN.
[2019-12-09 07:44] LABS: BASOPHILS # (AUTO) 0.1 /CMM (0.0-0.2); BASOPHILS % (AUTO) 1.1 % (0.0-2.0); EOSINOPHILS % (AUTO) 3.8 % (0.0-6.0); HEMATOCRIT 27 % (33-45); HEMOGLOBIN 8.8 g/dL (11.5-14.8); LYMPHOCYTES # (AUTO) 1.3 /CMM (0.8-4.8); LYMPHOCYTES % (AUTO) 18.7 % (20.0-44.0); MEAN CORPUSCULAR HGB CONC 32 g/dl (31.0-36.0); MEAN CORPUSCULAR VOLUME 84 fL (82-100); MONOCYTES # (AUTO) 0.5 /CMM (0.1-1.30); MONOCYTES % (AUTO) 6.7 % (2.0-12.0); NEUTROPHILS # (AUTO) 4.9 /CMM (1.8-8.9); NEUTROPHILS % (AUTO) 69.7 % (43.0-81.0); PLATELET COUNT (AUTO) 303 /CMM (150-450); RED BLOOD CELL COUNT(AUTO) 3.26 MIL/uL (4.0-5.2); WHITE BLOOD COUNT (AUTO) 7.1 K/uL (4.3-11.0)
[2019-12-09 08:00] VITALS: BP 127/60
[2019-12-09 08:04] LABS: CALCIUM, SERUM 8.4 mg/dL (8.5-10.1); CARBON DIOXIDE 23 mmol/L (21-32); CHLORIDE 107 mmol/L (98-107); CREATININE 1.4 mg/dL (0.6-1.3); GLUCOSE 122 mg/dL (74-106); SODIUM SERUM 141 mmol/L (136-145); UREA NITROGEN, BLOOD 21 mg/dL (7-18)
[2019-12-09] MEDS: GABAPENTIN 100 MG CAPSULE PO SCH (09:13)
[2019-12-09] MEDS: PANTOPRAZOLE 40 MG TABLET.DR PO SCH (09:13)
[2019-12-09] MEDS: SIMVASTATIN 20 MG TABLET PO SCH (09:13)
[2019-12-09] MEDS: METFORMIN 500 MG TABLET PO SCH (09:13)
[2019-12-09] MEDS: CITALOPRAM HYDROBROMIDE 20 MG TABLET PO SCH (09:13)
[2019-12-09 09:14] VITALS: BP 127/60
[2019-12-09] MEDS: AMLODIPINE BESYLATE 5 MG TABLET PO SCH (09:14)
[2019-12-09] MEDS: NYSTATIN TOP POWDER 15 GM BOTTLE TP SCH (09:15)
[2019-12-09] MEDS: Z GUARD REMEDY 2 OZ OINT TP SCH (09:15)
--- NOTE | 2019-12-09 10:30 | NUR ---
MS RN NOTES CALLED PHARMACY, SPOKE TO LIONEL REGARDING IV CEFAZOLIN FOLLOW UP, STILL NOT AVAILABLE IN THE UNIT. AWAITING FOR MEDICINE.
[2019-12-09] MEDS: CEFAZOLIN 1 GM in IV NS 0.9% 50 ML IV SCH (11:03)
[2019-12-09] MEDS: ACETAMINOPHEN 325 MG TABLET PO PRN ×2 (13:08→13:10)
--- NOTE | 2019-12-09 16:33 | NUR ---
MS RAGS LABORER NOTES PT A/O X3-4, AWAKE, SON PRESENT AT BEDSIDE DURING DISCHARGE. PT TOLERATING RA, WITH NO ACUTE RESPIRATORY DISTRESS NOTED. PT DENIES PAIN OR DISCOMFORT AT THE TIME OF DISCHARGE. VITALS STABLE AND RECORDED. DISCHARGE INSTRUCTIONS, MEDICATIONS AND INVENTORY LIST ARE REVIEWED AND SIGNED BY SON/ZEINA. ALL BELONGINGS AND HOME MEDICATIONS OF PT WITH THE SON/ZEINA. PICC LINE TO SONYA DOUBLE LUMEN, FLUSHED WITH NS, INTACT AND OPERATIONAL-- NOT REMOVED FOR CONTINUATION OF PT'S ANTIBIOTICS AT [facility]. ALL NEEDS AND CARE ATTENDED. PT AND SON HAPPY WITH THE CARE PROVIDED. [facility] CAME AND TRANSPORTED PT THROUGH [facility]. PT LEFT THE UNIT AT 1620. HOSPITALIST/ED AWARE OF DISCHARGE. REPORT GIVEN TO MARIBEL MARIEE AT [facility].
== END 2019-12-09 16:20 | DRG 981 ==
LOC: ER 18:58 → MEDSG2 20:51
PROVIDERS: ADMIT Nurse Practitioner Acute Care; ATTEND Internal Medicine
PROC: 0QBR0ZZ Excision of Left Toe Phalanx, Open Approach (ICD-10-PCS; principal; 2019-12-04)
PROC: 02HV33Z Insertion of Infusion Device into Superior Vena Cava, Percutaneous Approach (ICD-10-PCS; 2019-12-06)
PROC: B548ZZA Ultrasonography of Superior Vena Cava, Guidance (ICD-10-PCS; 2019-12-06)
DX: L03.032 Cellulitis of left toe (principal); N17.0 Acute kidney failure with tubular necrosis; M84.478A Pathological fracture, left toe(s), initial encounter for fracture; M86.9 Osteomyelitis, unspecified; E44.0 Moderate protein-calorie malnutrition; N39.0 Urinary tract infection, site not specified; J98.11 Atelectasis; E11.621 Type 2 diabetes mellitus with foot ulcer; E11.69 Type 2 diabetes mellitus with other specified complication; Z90.13 Acquired absence of bilateral breasts and nipples; Z87.440 Personal history of urinary (tract) infections; Z85.3 Personal history of malignant neoplasm of breast; Z91.018 Allergy to other foods; Z79.84 Long term (current) use of oral hypoglycemic drugs; Z79.899 Other long term (current) drug therapy; D63.8 Anemia in other chronic diseases classified elsewhere; E11.51 Type 2 diabetes mellitus with diabetic peripheral angiopathy without gangrene; E11.622 Type 2 diabetes mellitus with other skin ulcer; E11.40 Type 2 diabetes mellitus with diabetic neuropathy, unspecified; E11.22 Type 2 diabetes mellitus with diabetic chronic kidney disease; I12.9 Hypertensive chronic kidney disease with stage 1 through stage 4 chronic kidney disease, or unspecified chronic kidney disease; E11.65 Type 2 diabetes mellitus with hyperglycemia; E86.9 Volume depletion, unspecified; B96.89 Other specified bacterial agents as the cause of diseases classified elsewhere; M85.80 Other specified disorders of bone density and structure, unspecified site; L97.529 Non-pressure chronic ulcer of other part of left foot with unspecified severity; N18.9 Chronic kidney disease, unspecified; L30.4 Erythema intertrigo; Z91.81 History of falling; F41.9 Anxiety disorder, unspecified; G20 Parkinson's disease; E78.5 Hyperlipidemia, unspecified
CPT/HCPCS: 36415; 36569; 70450-TC; 71045-TC; 73630-TC; 73718-TC; 80048-TC; 80053-TC; 80061-TC; 80076-TC; 81000-TC; 82550-TC; 82570-TC; 82728-TC; 82962-TC; 83540-TC; 83605-TC; 83735-TC; 83970; 84100-TC; 84155; 84155-TC; 84165; 84300-TC; 84443-TC; 84484-TC; 85025-TC; 85652-TC; 85730-TC; 87040-TC; 87070-TC; 87081-TC; 87086-TC; 87186-TC; 93971-TC; A4216; A6403; A6407; C1751; G0378; J0690; J1815; J2270; J2543; J3370; J3490; J7030; J7060

== ENCOUNTER 2020-01-23 10:45 | Outpatient (CLI) | payer MEDICARE, MEDICAID | END 2020-01-23 23:59 | disposition home or self-care (01) | LOC: WOU 10:45 | PROVIDERS: ATTEND Podiatrist Foot & Ankle Surgery | DX: E11.69 Type 2 diabetes mellitus with other specified complication (principal); M86.172 Other acute osteomyelitis, left ankle and foot; B35.1 Tinea unguium; E11.40 Type 2 diabetes mellitus with diabetic neuropathy, unspecified; Z79.84 Long term (current) use of oral hypoglycemic drugs; R60.0 Localized edema; M79.672 Pain in left foot; M79.671 Pain in right foot; Z79.899 Other long term (current) drug therapy | CPT/HCPCS: 82962; G0463 ==

== ENCOUNTER 2020-02-05 13:15 | Outpatient (CLI) | payer MEDICARE, MEDICAID ==
[~2020-02-05 13:15] MED LIST changes: -DICL1ADH11 TP; +DICL1PAT11 TP
[2020-04-07] MEDS ORDERED: CEFT2VIA14 IV (13:56)
== END 2020-02-05 23:59 | disposition home or self-care (01) ==
LOC: WOU 13:15
PROVIDERS: ATTEND Podiatrist Foot & Ankle Surgery
DX: E11.621 Type 2 diabetes mellitus with foot ulcer (principal); L97.522 Non-pressure chronic ulcer of other part of left foot with fat layer exposed; E11.40 Type 2 diabetes mellitus with diabetic neuropathy, unspecified; E11.69 Type 2 diabetes mellitus with other specified complication; M86.672 Other chronic osteomyelitis, left ankle and foot; L03.032 Cellulitis of left toe; R60.0 Localized edema; Z79.84 Long term (current) use of oral hypoglycemic drugs; Z79.899 Other long term (current) drug therapy
CPT/HCPCS: 11042; 73630; A6407

== ENCOUNTER 2020-02-07 08:32 | Outpatient (CLI) | payer MEDICARE, MEDICAID ==
[~2020-02-07 08:32] MED LIST changes: +DICL1ADH11 TP; -DICL1PAT11 TP
== END 2020-02-07 23:59 | disposition home or self-care (01) ==
LOC: WOU 08:32
PROVIDERS: ATTEND Podiatrist Foot & Ankle Surgery
DX: E11.621 Type 2 diabetes mellitus with foot ulcer (principal); L97.525 Non-pressure chronic ulcer of other part of left foot with muscle involvement without evidence of necrosis; E11.40 Type 2 diabetes mellitus with diabetic neuropathy, unspecified; E11.69 Type 2 diabetes mellitus with other specified complication; M86.172 Other acute osteomyelitis, left ankle and foot; Z79.899 Other long term (current) drug therapy; L03.032 Cellulitis of left toe; Z79.84 Long term (current) use of oral hypoglycemic drugs; B35.1 Tinea unguium; M79.672 Pain in left foot; M79.671 Pain in right foot
CPT/HCPCS: 11043; 82962; A6407

== ENCOUNTER 2020-02-10 10:25 | Outpatient (CLI) | payer MEDICARE, MEDICAID | END 2020-02-10 23:59 | disposition home or self-care (01) | LOC: WOU 10:25 | PROVIDERS: ATTEND Podiatrist Foot & Ankle Surgery | DX: E11.621 Type 2 diabetes mellitus with foot ulcer (principal); L97.525 Non-pressure chronic ulcer of other part of left foot with muscle involvement without evidence of necrosis; E11.40 Type 2 diabetes mellitus with diabetic neuropathy, unspecified; E11.69 Type 2 diabetes mellitus with other specified complication; M86.172 Other acute osteomyelitis, left ankle and foot; Z79.84 Long term (current) use of oral hypoglycemic drugs; R60.0 Localized edema; B35.1 Tinea unguium; M79.672 Pain in left foot; M79.671 Pain in right foot; I10 Essential (primary) hypertension | CPT/HCPCS: 11043; 82962; A6407 ==

== ENCOUNTER 2020-02-11 13:20 | Outpatient (CLI) | payer MEDICARE, MEDICAID | END 2020-02-11 23:59 | disposition home or self-care (01) | LOC: WOU 13:20 | PROVIDERS: ATTEND Surgery Vascular Surgery | DX: E11.621 Type 2 diabetes mellitus with foot ulcer (principal); L97.525 Non-pressure chronic ulcer of other part of left foot with muscle involvement without evidence of necrosis | CPT/HCPCS: A6407; G0463 ==

== ENCOUNTER 2020-02-13 10:30 | Outpatient (CLI) | payer MEDICARE, MEDICAID | END 2020-02-13 23:59 | disposition home or self-care (01) | LOC: WOU 10:30 | PROVIDERS: ATTEND Podiatrist Foot & Ankle Surgery | DX: E11.621 Type 2 diabetes mellitus with foot ulcer (principal); L97.525 Non-pressure chronic ulcer of other part of left foot with muscle involvement without evidence of necrosis; E11.42 Type 2 diabetes mellitus with diabetic polyneuropathy; E11.69 Type 2 diabetes mellitus with other specified complication; M86.172 Other acute osteomyelitis, left ankle and foot; Z79.4 Long term (current) use of insulin; B35.1 Tinea unguium; R60.0 Localized edema; M79.672 Pain in left foot; M79.671 Pain in right foot; Z79.899 Other long term (current) drug therapy; I10 Essential (primary) hypertension | CPT/HCPCS: 11043; 82962; A6407 ==

== ENCOUNTER 2020-02-17 11:00 | Outpatient (CLI) | payer MEDICARE, MEDICAID | END 2020-02-17 23:59 | disposition home or self-care (01) | LOC: WOU 11:00 | PROVIDERS: ATTEND Podiatrist Foot & Ankle Surgery | DX: E11.621 Type 2 diabetes mellitus with foot ulcer (principal); L97.525 Non-pressure chronic ulcer of other part of left foot with muscle involvement without evidence of necrosis; E11.40 Type 2 diabetes mellitus with diabetic neuropathy, unspecified; E11.69 Type 2 diabetes mellitus with other specified complication; M86.172 Other acute osteomyelitis, left ankle and foot; B35.1 Tinea unguium; M79.672 Pain in left foot; M79.671 Pain in right foot; R60.0 Localized edema; Z79.84 Long term (current) use of oral hypoglycemic drugs; Z79.899 Other long term (current) drug therapy | CPT/HCPCS: 11043; 82962-TC ==

== ENCOUNTER 2020-02-20 11:00 | Outpatient (CLI) | payer MEDICARE, MEDICAID | END 2020-02-20 23:59 | disposition home or self-care (01) | LOC: WOU 11:00 | PROVIDERS: ATTEND Podiatrist Foot & Ankle Surgery | DX: E11.621 Type 2 diabetes mellitus with foot ulcer (principal); L97.525 Non-pressure chronic ulcer of other part of left foot with muscle involvement without evidence of necrosis; E11.40 Type 2 diabetes mellitus with diabetic neuropathy, unspecified; E11.69 Type 2 diabetes mellitus with other specified complication; M86.172 Other acute osteomyelitis, left ankle and foot; Z79.84 Long term (current) use of oral hypoglycemic drugs; B35.1 Tinea unguium; R60.0 Localized edema; M79.672 Pain in left foot; M79.671 Pain in right foot; Z79.899 Other long term (current) drug therapy | CPT/HCPCS: 11043; 82962-TC ==

== ENCOUNTER 2020-02-24 11:25 | Outpatient (CLI) | payer MEDICARE, MEDICAID | END 2020-02-24 23:59 | disposition home or self-care (01) | LOC: WOU 11:25 | PROVIDERS: ATTEND Podiatrist Foot & Ankle Surgery | DX: E11.621 Type 2 diabetes mellitus with foot ulcer (principal); L97.525 Non-pressure chronic ulcer of other part of left foot with muscle involvement without evidence of necrosis; E11.40 Type 2 diabetes mellitus with diabetic neuropathy, unspecified; E11.69 Type 2 diabetes mellitus with other specified complication; M86.172 Other acute osteomyelitis, left ankle and foot; Z79.84 Long term (current) use of oral hypoglycemic drugs; B35.1 Tinea unguium; R60.0 Localized edema; M79.672 Pain in left foot; M79.671 Pain in right foot; Z79.899 Other long term (current) drug therapy | CPT/HCPCS: 11043 ==

== ENCOUNTER 2020-02-27 11:20 | Outpatient (CLI) | payer MEDICARE, MEDICAID ==
[2020-02-27 13:01] LABS: BASOPHILS # (AUTO) 0.1 /CMM (0.0-0.2); BASOPHILS % (AUTO) 1.6 % (0.0-2.0); EOSINOPHILS % (AUTO) 1.2 % (0.0-6.0); HEMATOCRIT 31 % (33-45); LYMPHOCYTES % (AUTO) 25.1 % (20.0-44.0); MEAN CORPUSCULAR HGB CONC 32 g/dl (31.0-36.0); MEAN CORPUSCULAR VOLUME 84 fL (82-100); MONOCYTES # (AUTO) 0.4 /CMM (0.1-1.30); NEUTROPHILS # (AUTO) 5.3 /CMM (1.8-8.9); NEUTROPHILS % (AUTO) 67.1 % (43.0-81.0); PLATELET COUNT (AUTO) 266 /CMM (150-450); RED BLOOD CELL COUNT(AUTO) 3.67 MIL/uL (4.0-5.2); WHITE BLOOD COUNT (AUTO) 7.9 K/uL (4.3-11.0)
[2020-02-27 13:13] LABS: PREALBUMIN 22.5 MG/DL (18.0-35.7)
[2020-02-27 13:14] LABS: ALANINE AMINOTRANSFERASE 18 U/L (12-78); ALBUMIN 3.4 g/dL (3.4-5.0); ALKALINE PHOSPHATASE 61 U/L (46-116); ASPARTATE AMINOTRANSFERASE 16 U/L (15-37); BILIRUBIN,TOTAL 0.2 mg/dL (0.2-1.0); CALCIUM, SERUM 8.7 mg/dL (8.5-10.1); CARBON DIOXIDE 20 mmol/L (21-32); CHLORIDE 103 mmol/L (98-107); GLUCOSE 165 mg/dL (74-106); MAGNESIUM 2.3 mg/dL (1.8-2.4); PHOSPHORUS 4.8 mg/dL (2.5-4.9); POTASSIUM 4.7 mmol/L (3.5-5.1); SODIUM SERUM 136 mmol/L (136-145); TOTAL PROTEIN, SERUM 8.4 g/dL (6.4-8.2)
[2020-02-27 13:29] LABS: UREA NITROGEN, BLOOD 85 mg/dL (7-18)
== END 2020-02-27 23:59 | disposition home or self-care (01) ==
LOC: WOU 11:20
PROVIDERS: ATTEND Podiatrist Foot & Ankle Surgery
DX: E11.621 Type 2 diabetes mellitus with foot ulcer (principal); L97.525 Non-pressure chronic ulcer of other part of left foot with muscle involvement without evidence of necrosis; E11.40 Type 2 diabetes mellitus with diabetic neuropathy, unspecified; E11.69 Type 2 diabetes mellitus with other specified complication; M86.172 Other acute osteomyelitis, left ankle and foot; B35.1 Tinea unguium; R60.0 Localized edema; M79.672 Pain in left foot; M79.671 Pain in right foot; Z79.84 Long term (current) use of oral hypoglycemic drugs; Z79.899 Other long term (current) drug therapy
CPT/HCPCS: 15275; 36415; 80053; 83036; 83735; 84100; 84134; 85025; Q4196

== ENCOUNTER 2020-03-05 10:25 | Outpatient (CLI) | payer MEDICARE, MEDICAID | END 2020-03-05 23:59 | disposition home health service (06) | LOC: WOU 10:25 | PROVIDERS: ATTEND Podiatrist Foot & Ankle Surgery | DX: E11.621 Type 2 diabetes mellitus with foot ulcer (principal); L97.525 Non-pressure chronic ulcer of other part of left foot with muscle involvement without evidence of necrosis; E11.69 Type 2 diabetes mellitus with other specified complication; E11.40 Type 2 diabetes mellitus with diabetic neuropathy, unspecified; M86.172 Other acute osteomyelitis, left ankle and foot; Z79.84 Long term (current) use of oral hypoglycemic drugs; B35.1 Tinea unguium; R60.0 Localized edema; M79.672 Pain in left foot; M79.671 Pain in right foot; Z79.899 Other long term (current) drug therapy | CPT/HCPCS: 11043; 82962-TC ==

== ENCOUNTER 2020-03-09 10:55 | Outpatient (CLI) | payer MEDICARE, MEDICAID | END 2020-03-09 23:59 | disposition home health service (06) | LOC: WOU 10:55 | PROVIDERS: ATTEND Podiatrist Foot & Ankle Surgery | DX: E11.621 Type 2 diabetes mellitus with foot ulcer (principal); L97.525 Non-pressure chronic ulcer of other part of left foot with muscle involvement without evidence of necrosis; E11.40 Type 2 diabetes mellitus with diabetic neuropathy, unspecified; E11.69 Type 2 diabetes mellitus with other specified complication; M86.172 Other acute osteomyelitis, left ankle and foot; Z79.84 Long term (current) use of oral hypoglycemic drugs; B35.1 Tinea unguium; R60.0 Localized edema; I10 Essential (primary) hypertension; M79.672 Pain in left foot; M79.671 Pain in right foot; Z79.899 Other long term (current) drug therapy | CPT/HCPCS: 11043; 82962-TC ==

== ENCOUNTER 2020-03-10 14:25 | Outpatient (CLI) | payer MEDICARE, MEDICAID | END 2020-03-10 23:59 | disposition home or self-care (01) | LOC: VASLAB 14:25 | PROVIDERS: ATTEND Surgery Vascular Surgery | DX: E11.621 Type 2 diabetes mellitus with foot ulcer (principal); L97.522 Non-pressure chronic ulcer of other part of left foot with fat layer exposed; E11.40 Type 2 diabetes mellitus with diabetic neuropathy, unspecified; E11.69 Type 2 diabetes mellitus with other specified complication; M86.172 Other acute osteomyelitis, left ankle and foot; Z79.84 Long term (current) use of oral hypoglycemic drugs; B35.1 Tinea unguium; R60.0 Localized edema; M79.672 Pain in left foot; M79.671 Pain in right foot; Z79.899 Other long term (current) drug therapy | CPT/HCPCS: G0463 ==

== ENCOUNTER 2020-03-12 11:20 | Outpatient (CLI) | payer MEDICARE, MEDICAID | END 2020-03-12 23:59 | disposition home or self-care (01) | LOC: WOU 11:20 | PROVIDERS: ATTEND Podiatrist Foot & Ankle Surgery | DX: E11.621 Type 2 diabetes mellitus with foot ulcer (principal); L97.525 Non-pressure chronic ulcer of other part of left foot with muscle involvement without evidence of necrosis; E11.40 Type 2 diabetes mellitus with diabetic neuropathy, unspecified; E11.69 Type 2 diabetes mellitus with other specified complication; M86.172 Other acute osteomyelitis, left ankle and foot; B35.1 Tinea unguium; M79.672 Pain in left foot; M79.671 Pain in right foot; R60.0 Localized edema; Z79.84 Long term (current) use of oral hypoglycemic drugs; Z79.899 Other long term (current) drug therapy | CPT/HCPCS: 11043 ==

== ENCOUNTER 2020-03-17 09:53 | Outpatient (CLI) | payer MEDICARE, MEDICAID | END 2020-03-17 23:59 | disposition home health service (06) | LOC: WOU 09:53 | PROVIDERS: ATTEND Podiatrist Foot & Ankle Surgery | DX: E11.621 Type 2 diabetes mellitus with foot ulcer (principal); L97.525 Non-pressure chronic ulcer of other part of left foot with muscle involvement without evidence of necrosis; E11.40 Type 2 diabetes mellitus with diabetic neuropathy, unspecified; E11.69 Type 2 diabetes mellitus with other specified complication; M86.172 Other acute osteomyelitis, left ankle and foot; Z79.84 Long term (current) use of oral hypoglycemic drugs; L03.116 Cellulitis of left lower limb; R60.0 Localized edema; B35.1 Tinea unguium; M79.672 Pain in left foot; M79.671 Pain in right foot; Z79.899 Other long term (current) drug therapy | CPT/HCPCS: 11043; A6209 ==

== ENCOUNTER 2020-03-19 11:30 | Outpatient (CLI) | payer MEDICARE, MEDICAID | END 2020-03-19 23:59 | disposition home health service (06) | LOC: WOU 11:30 | PROVIDERS: ATTEND Podiatrist Foot & Ankle Surgery | DX: E11.621 Type 2 diabetes mellitus with foot ulcer (principal); L97.525 Non-pressure chronic ulcer of other part of left foot with muscle involvement without evidence of necrosis; E11.40 Type 2 diabetes mellitus with diabetic neuropathy, unspecified; E11.69 Type 2 diabetes mellitus with other specified complication; M86.172 Other acute osteomyelitis, left ankle and foot; Z79.84 Long term (current) use of oral hypoglycemic drugs; L03.116 Cellulitis of left lower limb; B35.1 Tinea unguium; R60.0 Localized edema; M79.672 Pain in left foot; M79.671 Pain in right foot; Z79.899 Other long term (current) drug therapy | CPT/HCPCS: 11043 ==

== ENCOUNTER 2020-03-23 11:30 | Outpatient (CLI) | payer MEDICARE, MEDICAID | END 2020-03-23 23:59 | disposition home health service (06) | LOC: WOU 11:30 | PROVIDERS: ATTEND Podiatrist Foot & Ankle Surgery | DX: E11.621 Type 2 diabetes mellitus with foot ulcer (principal); L97.525 Non-pressure chronic ulcer of other part of left foot with muscle involvement without evidence of necrosis; E11.40 Type 2 diabetes mellitus with diabetic neuropathy, unspecified; E11.69 Type 2 diabetes mellitus with other specified complication; M86.172 Other acute osteomyelitis, left ankle and foot; B35.1 Tinea unguium; R60.0 Localized edema; M79.672 Pain in left foot; M79.671 Pain in right foot; Z79.84 Long term (current) use of oral hypoglycemic drugs | CPT/HCPCS: 11042 ==

== ENCOUNTER 2020-03-25 12:30 | Outpatient (CLI) | payer MEDICARE, MEDICAID ==
[2020-03-25 14:16] LABS: BASOPHILS # (AUTO) 0.1 /CMM (0.0-0.2); BASOPHILS % (AUTO) 0.7 % (0.0-2.0); EOSINOPHILS % (AUTO) 1.3 % (0.0-6.0); HEMATOCRIT 33 % (33-45); HEMOGLOBIN 10.3 g/dL (11.5-14.8); LYMPHOCYTES # (AUTO) 2.1 /CMM (0.8-4.8); LYMPHOCYTES % (AUTO) 23.7 % (20.0-44.0); MEAN CORPUSCULAR HGB CONC 31 g/dl (31.0-36.0); MEAN CORPUSCULAR VOLUME 85 fL (82-100); MONOCYTES # (AUTO) 0.6 /CMM (0.1-1.30); MONOCYTES % (AUTO) 6.6 % (2.0-12.0); NEUTROPHILS # (AUTO) 5.9 /CMM (1.8-8.9); NEUTROPHILS % (AUTO) 67.7 % (43.0-81.0); PLATELET COUNT (AUTO) 325 /CMM (150-450); RED BLOOD CELL COUNT(AUTO) 3.86 MIL/uL (4.0-5.2); WHITE BLOOD COUNT (AUTO) 8.8 K/uL (4.3-11.0)
[2020-03-25 14:31] LABS: ALBUMIN 3.4 g/dL (3.4-5.0)
[2020-03-25 14:56] LABS: PREALBUMIN 22.2 MG/DL (18.0-35.7)
[2020-03-25 15:02] LABS: C-REACTIVE PROTEIN 1.4 mg/dL (0.0-0.9)
== END 2020-03-25 23:59 | disposition home health service (06) ==
LOC: WOU 12:30
PROVIDERS: ATTEND Podiatrist Foot & Ankle Surgery
DX: E11.621 Type 2 diabetes mellitus with foot ulcer (principal); L97.525 Non-pressure chronic ulcer of other part of left foot with muscle involvement without evidence of necrosis; E11.40 Type 2 diabetes mellitus with diabetic neuropathy, unspecified; E11.69 Type 2 diabetes mellitus with other specified complication; M86.672 Other chronic osteomyelitis, left ankle and foot; Z79.84 Long term (current) use of oral hypoglycemic drugs; B35.1 Tinea unguium; M79.672 Pain in left foot; M79.671 Pain in right foot; R60.0 Localized edema; Z79.899 Other long term (current) drug therapy
CPT/HCPCS: 36415; 82040; 83036; 84134; 84145; 85025; 85652; 86140; 87070; G0463

== ENCOUNTER 2020-03-27 10:35 | Outpatient (CLI) | payer MEDICARE, MEDICAID | END 2020-03-27 23:59 | disposition home health service (06) | LOC: WOU 10:35 | PROVIDERS: ATTEND Podiatrist Foot & Ankle Surgery | DX: E11.621 Type 2 diabetes mellitus with foot ulcer (principal); L97.525 Non-pressure chronic ulcer of other part of left foot with muscle involvement without evidence of necrosis; E11.40 Type 2 diabetes mellitus with diabetic neuropathy, unspecified; Z79.84 Long term (current) use of oral hypoglycemic drugs; L03.116 Cellulitis of left lower limb; B35.1 Tinea unguium; R60.0 Localized edema; M79.672 Pain in left foot; Z79.899 Other long term (current) drug therapy | CPT/HCPCS: 11043 ==

== ENCOUNTER 2020-03-30 11:59 | Outpatient (CLI) | payer MEDICARE, MEDICAID ==
[2020-04-07] MEDS ORDERED: CEFT2VIA14 IV (13:56)
== END 2020-03-30 23:59 | disposition home or self-care (01) ==
LOC: MRI 11:59 → RAD 23:59
PROVIDERS: ATTEND Podiatrist Foot & Ankle Surgery
DX: E11.621 Type 2 diabetes mellitus with foot ulcer (principal); M77.32 Calcaneal spur, left foot; M21.6X2 Other acquired deformities of left foot
CPT/HCPCS: 73630-TC

== ENCOUNTER 2020-03-31 10:35 | Outpatient (CLI) | payer MEDICARE, MEDICAID ==
[~2020-03-31 10:35] MED LIST changes: -DICL1ADH11 TP; +DICL1PAT11 TP
[2020-04-01] MEDS ORDERED: EMPA25TA PO (12:15)
[2020-04-01] MEDS ORDERED: LACT1CAP97 PO (12:15)
[2020-04-01] MEDS ORDERED: LACT10SO29 PO (12:15)
[2020-04-01] MEDS ORDERED: FOLI1TAB25 PO (12:15)
[2020-04-01] MEDS ORDERED: PROP15DR EACHEYE (12:15)
[2020-04-01] MEDS ORDERED: GABA-532 PO (12:15)
[2020-04-01] MEDS ORDERED: ASCO-352 PO (12:15)
[2020-04-01] MEDS ORDERED: AMIN30LI2 PO (12:16)
[2020-04-01] MEDS ORDERED: GLIP5TAB13 PO (13:02)
[2020-04-07] MEDS ORDERED: CEFT2VIA14 IV (13:56)
== END 2020-03-31 23:59 | disposition home health service (06) ==
LOC: WOU 10:35
PROVIDERS: ATTEND Podiatrist Foot & Ankle Surgery
DX: E11.621 Type 2 diabetes mellitus with foot ulcer (principal); L97.522 Non-pressure chronic ulcer of other part of left foot with fat layer exposed; E11.40 Type 2 diabetes mellitus with diabetic neuropathy, unspecified; E11.69 Type 2 diabetes mellitus with other specified complication; M86.672 Other chronic osteomyelitis, left ankle and foot; L03.116 Cellulitis of left lower limb; B35.1 Tinea unguium; M79.672 Pain in left foot; M79.671 Pain in right foot; R60.0 Localized edema; Z79.84 Long term (current) use of oral hypoglycemic drugs; Z79.899 Other long term (current) drug therapy
CPT/HCPCS: 11042

== ENCOUNTER 2020-04-01 11:36 | Inpatient (IN) | payer MEDICARE, OTHER ==
[~2020-04-01] VITALS: Ht 152.4 cm; Wt 74.8 kg
[~2020-04-01 11:36] MED LIST changes: +DICL1ADH11 TP; -DICL1PAT11 TP
--- NOTE | 2020-04-01 12:00 | NUR ---
BIB SON PT WAS SENT BY PMD TO BE ADMITTED & WILL HAVE SURGERY ON LT GREAT TOE SURGERY TOMORROW. PT AAOX4, VSS. RR EVEN & UNLABORED. DENIES CP, SOB, DIZZINESS, FEVER, N/V @ THIS TIME. PT SEEN & EVAL'D BY DR. PHILIPPE. WILL CONT TO MONITOR.
[2020-04-01] MEDS ORDERED: FOLI1TAB25 PO (12:15)
[2020-04-01] MEDS ORDERED: LACT1CAP97 PO (12:15)
[2020-04-01] MEDS ORDERED: LACT10SO29 PO (12:15)
[2020-04-01] MEDS ORDERED: EMPA25TA PO (12:15)
[2020-04-01] MEDS ORDERED: PROP15DR EACHEYE (12:15)
[2020-04-01] MEDS ORDERED: GABA-532 PO (12:15)
[2020-04-01] MEDS ORDERED: ASCO-352 PO (12:15)
[2020-04-01] MEDS ORDERED: AMIN30LI2 PO (12:16)
[2020-04-01] MEDS ORDERED: PIPERACILLIN /TAZOBACTAM 3.375 G in IV D5W 50 ML IV ONE (12:30)
[2020-04-01] MEDS ORDERED: VANCOMYCIN 1 GM in IV D5W 250 ML IV ONE (12:30)
[2020-04-01 12:41] LABS: BASOPHILS # (AUTO) 0.1 /CMM (0.0-0.2); EOSINOPHILS % (AUTO) 1.8 % (0.0-6.0); HEMATOCRIT 32 % (33-45); HEMOGLOBIN 10.2 g/dL (11.5-14.8); LYMPHOCYTES # (AUTO) 1.6 /CMM (0.8-4.8); LYMPHOCYTES % (AUTO) 21.8 % (20.0-44.0); MEAN CORPUSCULAR HGB CONC 32 g/dl (31.0-36.0); MEAN CORPUSCULAR VOLUME 86 fL (82-100); MONOCYTES # (AUTO) 0.4 /CMM (0.1-1.30); MONOCYTES % (AUTO) 5.5 % (2.0-12.0); NEUTROPHILS # (AUTO) 5.2 /CMM (1.8-8.9); NEUTROPHILS % (AUTO) 69.9 % (43.0-81.0); PLATELET COUNT (AUTO) 316 /CMM (150-450); RED BLOOD CELL COUNT(AUTO) 3.74 MIL/uL (4.0-5.2); WHITE BLOOD COUNT (AUTO) 7.4 K/uL (4.3-11.0)
--- NOTE | 2020-04-01 12:47 | NUR ---
PAGED DR. NICO CAMARILLO.
[2020-04-01 12:51] LABS: CALCIUM, SERUM 8.8 mg/dL (8.5-10.1); CARBON DIOXIDE 22 mmol/L (21-32); CHLORIDE 108 mmol/L (98-107); CREATININE 2.1 mg/dL (0.6-1.3); GLUCOSE 153 mg/dL (74-106); POTASSIUM 4.6 mmol/L (3.5-5.1); SODIUM SERUM 139 mmol/L (136-145)
[2020-04-01] MEDS ORDERED: GLIP5TAB13 PO (13:02)
[2020-04-01 13:08] LABS: UREA NITROGEN, BLOOD 83 mg/dL (7-18)
--- NOTE | 2020-04-01 13:21 | NUR ---
MADELINE COATS AT BEDSIDE FOR EVALUATION
--- NOTE | 2020-04-01 13:24 | NUR ---
PATIENT TAKEN TO MRI.
--- NOTE | 2020-04-01 14:34 | NUR ---
REPORT GIVEN TO RANDA MARIEE FOR IRENA
--- NOTE | 2020-04-01 14:42 | NUR ---
TRANSFERRED TO ROOM 208, IN STABLE CONDITION. VANCOMYCIN IV INFUSING TO FLOOR
--- NOTE | 2020-04-01 14:43 | NUR ---
MS CHIEF OF STAFF DOCTOR NOTES Received Patient via wheelchair. Patient in stable condition. Breathing even and unlabored on room air with no respiratory distress. Denies pain. No signs and symptoms of pain. 20g PIV on Right Hand clean, intact, patent and flushing well. Safety precautions in place. Bed locked and set to lowest position with side rails x 2 up. All needs rendered at this time. Call light within reach. Will continue to monitor.
[2020-04-01] MEDS ORDERED: ZOLPIDEM TARTRATE 5 MG TABLET PO PRN (15:30)
[2020-04-01] MEDS ORDERED: ONDANSETRON HCL/PF 4 MG/2 ML VIAL IVP PRN (15:30)
[2020-04-01] MEDS ORDERED: ACETAMINOPHEN 325 MG TABLET PO PRN (15:30)
[2020-04-01] MEDS ORDERED: MAG HYDROX/AL HYDROX/SIMETH 30 ML UDC PO PRN (15:30)
[2020-04-01] MEDS ORDERED: MAGNESIUM HYDROXIDE 30 ML UDC PO PRN (15:30)
[2020-04-01] MEDS ORDERED: LACTULOSE 10 G/15 ML UDC (PYXIS) PO PRN (15:30)
[2020-04-01] MEDS ORDERED: Z GUARD REMEDY 2 OZ OINT TP PRN (15:30)
[2020-04-01] MEDS ORDERED: POLYVINYL ALCOHOL 15 ML BOTTLE OP PRN (16:00)
[2020-04-01] MEDS: GABAPENTIN 100 MG CAPSULE PO SCH (16:23)
[2020-04-01] MEDS: glipiZIDE 5 MG TABLET PO SCH (16:23)
[2020-04-01] MEDS: BLOOD SUGAR DIAGNOSTIC 1 EACH STRIP IN SCH ×2 (17:52→21:54)
--- NOTE | 2020-04-01 18:10 | NUR ---
MS RN NOTES Obtained consent for "left foot incision and drainage, biopsy of bone, debridement, application of antibiotic cement, pinning of hallux" from Fabienne (daughter) at this time. Explained risks and benefits. Daughter agreed. Consent placed in chart.
--- NOTE | 2020-04-01 19:00 | NUR ---
received alert and orx2. noted speaks Farsi with some understanding of [place]. aware she is have a procedures done tomorrow on her tow. toe left grt wrapped dressing clean and dry. will make NPO at midnight
--- NOTE | 2020-04-01 19:50 | NUR ---
MS RN NOTES Obtained consent for blood transfusion and anesthesia from Emil (son) via phone at this time. Explained risks and benefits. Son agreed. Consent placed in chart.
--- NOTE | 2020-04-01 19:53 | NUR ---
MS RN CLOSING NOTES Patient resting at this time. Patient in stable condition. Breathing even and unlabored on room air with no respiratory distress. Denies pain. No signs and symptoms of pain. 20g PIV on Right Hand clean, intact, patent and flushing well. Safety precautions in place. Bed locked and set to lowest position with side rails x 2 up. All needs rendered at this time. Call light within reach. Will endorse plan of care to oncoming shift.
[2020-04-01 20:46] VITALS: BP 130/66
[2020-04-01 20:55] VITALS: BP 130/66
[2020-04-01] MEDS: SIMVASTATIN 20 MG TABLET PO SCH (21:55)
[2020-04-02] VITALS (13 sets, daily range): BP systolic 128–151; BP diastolic 54–85
[2020-04-02 00:07] LABS: APPEARANCE,URINE CLEAR (CLEAR); BILIRUBIN,URINE NEGATIVE (NEGATIVE); BLOOD, URINE TRACE-INTA Ery/uL (NEGATIVE); COLOR,URINE YELLOW (YELLOW); KETONES,URINE NEGATIVE (NEGATIVE); LEUKOCYTE ESTERASE ,URINE NEGATIVE (NEGATIVE); NITRITE, URINE NEGATIVE (NEGATIVE); PROTEIN,URINE TRACE mg/dl (NEGATIVE); UGLUCOSE >=1000 mg/dL (NEGATIVE); UROBILINOGEN,URINE 0.2 EU/dL (0.2)
[2020-04-02 00:16] LABS: BACTERIA,URINE Few /HPF (None Seen); RBC,URINE 0-2 /HPF (0-2); SQUAMOUS EPITHELIAL CELL,UR Few /HPF (None Seen); WBC,URINE 21-50 /HPF (0-3)
[2020-04-02 00:34] LABS: EOSINOPHIL,URINE None Seen
[2020-04-02 01:26] LABS: CREATININE, URINE 25.7 MG/DL (30.0-125.0); URINE TOTAL PROTEIN 35.7 mg/dL (0-11.9)
--- NOTE | 2020-04-02 05:46 | NUR ---
ENDING NOTES: ALERT AND ORIENTATED X3. AWARE SHE IS HAVE A PROCEDURE DONE TODAY ON HER LEFT GREAT TOE. LEFT GREAT TOE WITH DRESSING TO NON HEALING TOE WOUND NPO SINCE MIDNIGHT SURGICAL CHECK LIST DONE READY FOR SURGERY SCHEDULED AT 8AM
[2020-04-02] MEDS: BLOOD SUGAR DIAGNOSTIC 1 EACH STRIP IN SCH ×4 (06:23→21:21)
[2020-04-02 07:02] LABS: BASOPHILS # (AUTO) 0.1 /CMM (0.0-0.2); BASOPHILS % (AUTO) 0.8 % (0.0-2.0); HEMATOCRIT 31 % (33-45); HEMOGLOBIN 10.2 g/dL (11.5-14.8); LYMPHOCYTES # (AUTO) 2.5 /CMM (0.8-4.8); LYMPHOCYTES % (AUTO) 29.5 % (20.0-44.0); MEAN CORPUSCULAR HGB CONC 33 g/dl (31.0-36.0); MEAN CORPUSCULAR VOLUME 85 fL (82-100); MONOCYTES # (AUTO) 0.6 /CMM (0.1-1.30); MONOCYTES % (AUTO) 7.2 % (2.0-12.0); NEUTROPHILS # (AUTO) 5.1 /CMM (1.8-8.9); NEUTROPHILS % (AUTO) 59.5 % (43.0-81.0); PLATELET COUNT (AUTO) 318 /CMM (150-450); RED BLOOD CELL COUNT(AUTO) 3.69 MIL/uL (4.0-5.2); WHITE BLOOD COUNT (AUTO) 8.6 K/uL (4.3-11.0)
--- NOTE | 2020-04-02 07:10 | NUR ---
MS RN NOTES RECEIVED RESIDENT IN BED, ALERT AND AWAKE ORIENTED X4. HOB ELEVATED. NO SOB. DENIES ANY C/O PAIN NOR DISCOMFORT. REMAIN ON NPO FOR SCHEDULED LEFT FOOT I&D, BONE BX, DEBRIDEMENT, APPLICATION OF ATB CEMENT, PINNING OF HALLUX. BED IN LOWEST POSITION, LOCKED. BED ALARM ON. CALL LIGHT WITHIN REACH. ABLE TO VERBALIZE NEEDS.
[2020-04-02 07:15] LABS: ALANINE AMINOTRANSFERASE 19 U/L (12-78); ALBUMIN 3.1 g/dL (3.4-5.0); ALKALINE PHOSPHATASE 60 U/L (46-116); ASPARTATE AMINOTRANSFERASE 18 U/L (15-37); BILIRUBIN,TOTAL 0.2 mg/dL (0.2-1.0); CALCIUM, SERUM 8.9 mg/dL (8.5-10.1); CARBON DIOXIDE 21 mmol/L (21-32); CHLORIDE 108 mmol/L (98-107); GLUCOSE 80 mg/dL (74-106); MAGNESIUM 2.2 mg/dL (1.8-2.4); PHOSPHORUS 4.5 mg/dL (2.5-4.9); POTASSIUM 4.1 mmol/L (3.5-5.1); SODIUM SERUM 141 mmol/L (136-145); TOTAL PROTEIN, SERUM 8.1 g/dL (6.4-8.2); UREA NITROGEN, BLOOD 71 mg/dL (7-18)
[2020-04-02 07:38] LABS: CHOLESTEROL 168 mg/dL (<200); CREATINE KINASE, TOTAL 126 U/L (26-192); HDL CHOLESTEROL 56 mg/dL (40-60); LDL 98 mg/dL (0-99); TRIGLYCERIDES 104 mg/dL (30-150)
--- NOTE | 2020-04-02 08:00 | NUR ---
MS RN NOTES PATIENT OFF UNIT. WENT TO OR FOR SCHEDULED SX.
[2020-04-02] MEDS: ACIDOPHILUS/BULGARICUS 1 EACH TAB.CHEW PO SCH (08:09)
[2020-04-02] MEDS: AMLODIPINE BESYLATE 5 MG TABLET PO SCH (08:09)
[2020-04-02] MEDS: CITALOPRAM HYDROBROMIDE 20 MG TABLET PO SCH (08:09)
[2020-04-02] MEDS: glipiZIDE 5 MG TABLET PO SCH ×2 (08:09→17:25)
[2020-04-02] MEDS: GABAPENTIN 100 MG CAPSULE PO SCH ×2 (08:09→17:24)
[2020-04-02] MEDS: MULTIVITAMIN/LUTEIN/MINERALS 1 TAB PO SCH (08:10)
[2020-04-02] MEDS: ASCORBIC ACID 500 MG TABLET PO SCH (08:10)
--- NOTE | 2020-04-02 08:10 | NUR ---
MS RN NOTES PATIENT OFF UNIT, IN OR., MEDS HELD
[2020-04-02] MEDS ORDERED: FENTANYL PF 100MCG/2ML AMPUL ONE (08:37)
[2020-04-02] MEDS ORDERED: FAMOTIDINE/PF INJ 20 MG/2 ML VIAL IV ONE (08:37)
[2020-04-02] MEDS ORDERED: MIDAZOLAM HCL 2 MG/2ML VIAL ONE (08:37)
[2020-04-02] MEDS ORDERED: GENTAMICIN 80 MG/2 ML VIAL ONE (09:01)
--- NOTE | 2020-04-02 10:40 | NUR ---
MS RN NOTES PATIENT RETURNED TO UNIT FROM OR, DENIES ANY C/O PAIN SONIA DISCOMFORT. ALERT AND ORIENTED X4. V/C 131/81, HR:91; ROOM AIR SPO2 99%; T:98.0; RR: 18. PATIENT CALLED SON AFTER SURGERY. BED IN LOWEST POSITION ,LOCKED. BED ALARM ON. ABLE TO VERBALIZE NEEDS.
[2020-04-02] MEDS ORDERED: FEE PK DOSING 1 MIN EA MC ONE (11:20)
[2020-04-02] MEDS ORDERED: IV NS 0.9% 1,000 ML IV ONE (12:30)
[2020-04-02] MEDS ORDERED: PIPERACILLIN /TAZOBACTAM 2.25 G in IV D5W 50 ML IV SCH (13:00)
[2020-04-02] MEDS: VANCOMYCIN 0.75 GM in IV D5W 250 ML IV SCH (14:52)
--- NOTE | 2020-04-02 18:59 | NUR ---
MS RN NOTES PATIENT RESTING COMFORTABLY IN BED. HOB ELEVATED. NO SOB. DENIES ANY C/O PAIN NOR DISCOMFORT. REMAIN ON ROOM AIR WITH SPO2 96%. S/P LEFT FOOT I&D, BONE BX, DEBRIDEMENT, APPLICATION OF ATB CEMENT, PINNING OF HALLUX WITH LEFT FOOT DRESSING IN PLACE. SURROUND SKIN WARM AND DRY TO TOUCH. SONYA PICC LINE INTACT AND PATENT INFUSING NS AT 75ML/HR. BED IN LOWEST POSITION, LOCKED. BED ALARM ON. CALL LIGHT WITHIN REACH. ABLE TO VERBALIZE NEEDS. IN NO APPARENT DISTRESS.
--- NOTE | 2020-04-02 19:10 | NUR ---
RN medsurg opening notes Received Pt from morning nurse. Pt is laying in bed comfortably talking with family on the phone. Pt is alert and orientedX4. Respiration is normal in room air. No SOB. No S/S of distress noted. Iv sites at R hand# 20 is clean, intact and SL. SONYA piccline is clean, intact, patent and infusing well NS @ 75 ml/hr. S/P left foot I&D, dressing is intact, clean and dry. Skin is warm to touch. Safety precautions is maintained. Bed at low position, brakes locked, side rails upX2 and call light is within reach. Will continue to monitor.
[2020-04-02] MEDS: HYDROCODONE/APAP 5/325MG 1 EACH TABLET PO PRN (20:12)
--- NOTE | 2020-04-02 20:12 | NUR ---
RN medsurearl notes Pt is complaining of pain on L foot and requesting pain medication. Administered norco 5/po as ordered for pain. VS is stable. Safety precautions is maintained. Will continue to monitor.
[2020-04-02] MEDS: CEFTRIAXONE 2 G in IV D5W 100 ML IV SCH (20:49)
[2020-04-02] MEDS: SIMVASTATIN 20 MG TABLET PO SCH (21:14)
--- NOTE | 2020-04-02 21:34 | NUR ---
RN medsurg notes Pt's blood sugar HS is 256. Pt stated " Insulin is no good for me. I just ate my dinner. It will reduce in the morning." Pt has allergy to insulin. Pt also has oral blood sugar meds in am. Will continue to monitor.
[2020-04-03] MEDS: BLOOD SUGAR DIAGNOSTIC 1 EACH STRIP IN SCH ×4 (06:32→21:32)
--- NOTE | 2020-04-03 06:40 | NUR ---
RN medsurg closing notes Pt is resting in bed comfortably. Pt is alert and orientedX4. Respiration is normal in room air. No SOB. No S/S of distress noted. Iv sites at R hand# 20 is clean, intact and SL. SONYA piccline is clean, intact, patent and SL. S/P left foot I&D, dressing is intact, clean and dry. Skin is warm to touch. Kept Pt clean, dry and comfortable. All needs met and attended. Safety precautions is maintained. Bed at low position, brakes locked, side rails upX2 and call light is within reach. Will endorse to morning nurse for IRENA.
[2020-04-03 07:11] LABS: PTH, INTACT 40 pg/mL (15-65)
--- NOTE | 2020-04-03 07:30 | NUR ---
RN MS OPENING NOTE: Received patient from night nurse. Patient lying in bed comfortably, talking to sister on phone. Patient stated feels good. Patient complains of no pain or discomfort. Patient breathing is unlabored and equal bilaterally. No SOB. Left foot dressing is clean and dressing is intact. Fall precaution is maintained. Bed is in lowest position, side rails up, and call light within reach. Educated patient on the use of call light. Patient return demonstrated. Will continue to monitor.
[2020-04-03 07:49] LABS: BASOPHILS # (AUTO) 0.1 /CMM (0.0-0.2); CALCIUM, SERUM 8.3 mg/dL (8.5-10.1); CARBON DIOXIDE 22 mmol/L (21-32); CHLORIDE 107 mmol/L (98-107); EOSINOPHILS % (AUTO) 3.2 % (0.0-6.0); GLUCOSE 123 mg/dL (74-106); HEMATOCRIT 30 % (33-45); HEMOGLOBIN 9.6 g/dL (11.5-14.8); LYMPHOCYTES # (AUTO) 1.2 /CMM (0.8-4.8); LYMPHOCYTES % (AUTO) 16.4 % (20.0-44.0); MEAN CORPUSCULAR HGB CONC 32 g/dl (31.0-36.0); MEAN CORPUSCULAR VOLUME 85 fL (82-100); MONOCYTES # (AUTO) 0.6 /CMM (0.1-1.30); MONOCYTES % (AUTO) 8.7 % (2.0-12.0); NEUTROPHILS % (AUTO) 70.7 % (43.0-81.0); PLATELET COUNT (AUTO) 262 /CMM (150-450); POTASSIUM 4.3 mmol/L (3.5-5.1); RED BLOOD CELL COUNT(AUTO) 3.52 MIL/uL (4.0-5.2); SODIUM SERUM 140 mmol/L (136-145); UREA NITROGEN, BLOOD 58 mg/dL (7-18); WHITE BLOOD COUNT (AUTO) 7.1 K/uL (4.3-11.0)
[2020-04-03 08:00] VITALS: BP 118/53
[2020-04-03] MEDS: ACIDOPHILUS/BULGARICUS 1 EACH TAB.CHEW PO SCH (08:27)
[2020-04-03] MEDS: CITALOPRAM HYDROBROMIDE 20 MG TABLET PO SCH (08:27)
[2020-04-03] MEDS: ASCORBIC ACID 500 MG TABLET PO SCH (08:27)
[2020-04-03] MEDS: glipiZIDE 5 MG TABLET PO SCH ×2 (08:27→16:28)
[2020-04-03] MEDS: GABAPENTIN 100 MG CAPSULE PO SCH ×2 (08:27→16:28)
[2020-04-03] MEDS: MULTIVITAMIN/LUTEIN/MINERALS 1 TAB PO SCH (08:27)
[2020-04-03] MEDS: AMLODIPINE BESYLATE 5 MG TABLET PO SCH (08:28)
--- NOTE | 2020-04-03 10:30 | NUR ---
RN MS NOTES came and changed patient dressing.
--- NOTE | 2020-04-03 12:41 | NUR ---
MS RN NOTES CALLED SON ZEINA , INFORMED ZEINA REGARDING JARDIANCE, FAMILY WILL BRING MEDICATION.
[2020-04-03 13:07] LABS: *SPE A/G RATIO 0.6 (0.7-1.7); *SPE ALBUMIN 2.7 g/dL (2.9-4.4); *SPE ALPHA-1-GLOBULIN 0.3 g/dL (0.0-0.4); *SPE BETA GLOBULIN 1.1 g/dL (0.7-1.3); *SPE GLOBULIN, TOTAL 4.6 g/dL (2.2-3.9); *SPE M-SPIKE Not Observed g/dL (Not Observed); *SPEGAMMA GLOBULIN 2.2 g/dL (0.4-1.8)
[2020-04-03] MEDS: VANCOMYCIN 0.75 GM in IV D5W 250 ML IV SCH (14:55)
--- NOTE | 2020-04-03 15:55 | NUR ---
MS RN NOTES RELAYED TO DR. CLAUDIO REGARDING VTE SCORE OF 4 AND PATIENT IS NOT ON ANTICOAGULANT. AWAITING FOR RESPONSE.
[2020-04-03 16:00] VITALS: BP 131/66
[2020-04-03] MEDS: PROSOURCE / PROSTAT (PYXIS) 30 ML UDC PO SCH (17:28)
--- NOTE | 2020-04-03 18:50 | NUR ---
RN MS CLOSING NOTE: Patient laying on bed, comfortably. Patient denies pain or discomfort. Left great toe dressing is dry and clean. No signs or symptoms of respiratory distress. Safety precaution in place. Bed in lowest position, side rails up, bed brakes on, and call light within reach.
--- NOTE | 2020-04-03 19:10 | NUR ---
RN medsurg opening notes Received Pt from morning nurse. Pt is laying in bed comfortably watching TV. Pt is alert and orientedX3-4. Respiration is normal in room air. No SOB. No S/S of distress noted. SONYA piccline is clean, intact, patent and SL. Left foot dressing is intact, clean and dry. Skin is warm to touch. Keep Pt clean, dry and comfortable. Safety precautions is maintained. Bed at low position, brakes locked, side rails upX2 and call light is within reach. Will continue to monitor.
[2020-04-03 20:00] VITALS: BP 138/64
[2020-04-03] MEDS: HYDROCODONE/APAP 5/325MG 1 EACH TABLET PO PRN (20:01)
[2020-04-03] MEDS: CEFTRIAXONE 2 G in IV D5W 100 ML IV SCH (20:07)
[2020-04-03] MEDS: SIMVASTATIN 20 MG TABLET PO SCH (21:25)
--- NOTE | 2020-04-03 21:25 | NUR ---
RN medsurg notes Pt's complaining of having trouble falling asleep and requesting a sleeping pill. Administered ambien 5 mg as ordered for sleeping. Safety precautions is maintained. Will continue to monitor.
[2020-04-04 06:23] LABS: CALCIUM, SERUM 10.1 mg/dL (8.5-10.1); CARBON DIOXIDE 25 mmol/L (21-32); CHLORIDE 104 mmol/L (98-107); CREATININE 0.5 mg/dL (0.6-1.3); GLUCOSE 178 mg/dL (74-106); POTASSIUM 3.9 mmol/L (3.5-5.1); SODIUM SERUM 139 mmol/L (136-145); UREA NITROGEN, BLOOD 10 mg/dL (7-18)
--- NOTE | 2020-04-04 06:40 | NUR ---
RN medsurg closing notes Pt is resting in bed comfortably. Pt is alert and orientedX3-4. Respiration is normal in room air. No SOB. No S/S of distress noted. SONYA piccline is clean, intact, patent and SL. VS is stable. Afebrile. Routine meds were given as ordered. Left foot dressing is intact, clean and dry. Skin is warm to touch. Keep Pt clean, dry and comfortable. All needs met and attended. Safety precautions is maintained. Bed at low position, brakes locked, side rails upX2 and call light is within reach. Will endorse to morning nurse for IRENA.
[2020-04-04] MEDS: BLOOD SUGAR DIAGNOSTIC 1 EACH STRIP IN SCH ×4 (06:49→21:07)
[2020-04-04 07:00] VITALS: BP_SYST 121; BP_SYST 148; BP_DIAS 56; BP_DIAS 73
[2020-04-04] MEDS: CITALOPRAM HYDROBROMIDE 20 MG TABLET PO SCH (09:25)
[2020-04-04] MEDS: glipiZIDE 5 MG TABLET PO SCH ×2 (09:25→17:05)
[2020-04-04] MEDS: ACIDOPHILUS/BULGARICUS 1 EACH TAB.CHEW PO SCH (09:25)
[2020-04-04] MEDS: GABAPENTIN 100 MG CAPSULE PO SCH ×2 (09:25→17:05)
[2020-04-04] MEDS: ASCORBIC ACID 500 MG TABLET PO SCH (09:25)
[2020-04-04] MEDS: MULTIVITAMIN/LUTEIN/MINERALS 1 TAB PO SCH (09:25)
[2020-04-04] MEDS: AMLODIPINE BESYLATE 5 MG TABLET PO SCH (09:25)
[2020-04-04] MEDS: PROSOURCE / PROSTAT (PYXIS) 30 ML UDC PO SCH ×2 (09:26→17:05)
[2020-04-04] MEDS: HEPARIN SODIUM, PORCINE 5000 UNITS/1 ML VIAL SQ SCH ×3 (12:30→23:15)
[2020-04-04] MEDS: VANCOMYCIN 0.75 GM in IV D5W 250 ML IV SCH (14:05)
[2020-04-04 16:00] VITALS: BP 148/73
--- NOTE | 2020-04-04 19:00 | NUR ---
MS RN NOTES PATIENT RESTING COMFORTABLY IN BED. HOB ELEVATED. NO SOB. DENIES ANY C/O PAIN NOR DISCOMFORT. LEFT FOOT DRESSING IN PLACE. ELEVATED ON PILLOW. SONYA PICC LINE INTACT AND PATENT. NO S/S OF HYPO/HYPERGLYCEMIA. BED IN LOWEST POSITION, LOCKED. BED ALARM ON. CALL LIGHT WITHIN REACH. ABLE TO VERBALIZE NEEDS. IN NO APPARENT DISTRESS.
--- NOTE | 2020-04-04 19:35 | NUR ---
RN NOTES RECEIVED PT. AWAKE ON BED, A/OX3, DRESSING ON THE LEFT FOOT DRY AND INTACT, PICC LINE IN PLACE, DENIES PAIN AT THIS TIME, NO SOB, CALL LIGHT WITHIN REACH, [id number], CONTINUE TO MONITOR
[2020-04-04 20:00] VITALS: BP 136/69
[2020-04-04] MEDS: CEFTRIAXONE 2 G in IV D5W 100 ML IV SCH (20:55)
[2020-04-04] MEDS: HYDROCODONE/APAP 5/325MG 1 EACH TABLET PO PRN (21:18)
--- NOTE | 2020-04-04 21:20 | NUR ---
RN NOTES COMPLAINED OF LEFT FOOT PAIN- NORCO 5/325MG PO GIVEN ORDERED, V/S STABLE
[2020-04-04] MEDS ORDERED: MELATONIN 3 MG PO SCH (22:00)
--- NOTE | 2020-04-04 22:00 | NUR ---
RN NOTES BLOOD [id number] NO INSULIN COVERAGE ..PT. IS NOT ON INSULIN , JUST ON SLIDING SCALE BECAUSE PT. IS ALLERGIC TO INSULIN
[2020-04-04] MEDS: SIMVASTATIN 20 MG TABLET PO SCH (22:25)
--- NOTE | 2020-04-05 06:28 | NUR ---
RN NOTES AWAKE, MORNING CARE RENDERED , DENIES PAIN, NO SOB, CALL LIGHT WITHIN REACH, [id number], PT. NEEDS ATTENDED
[2020-04-05 06:44] LABS: CALCIUM, SERUM 8.6 mg/dL (8.5-10.1); CARBON DIOXIDE 26 mmol/L (21-32); CHLORIDE 105 mmol/L (98-107); CREATININE 1.8 mg/dL (0.6-1.3); GLUCOSE 111 mg/dL (74-106); POTASSIUM 4.2 mmol/L (3.5-5.1); SODIUM SERUM 138 mmol/L (136-145); UREA NITROGEN, BLOOD 47 mg/dL (7-18)
[2020-04-05] MEDS: BLOOD SUGAR DIAGNOSTIC 1 EACH STRIP IN SCH ×4 (07:31→21:37)
--- NOTE | 2020-04-05 08:05 | NUR ---
M/S RN OPENING NOTES RECEIVED PT ON BED,A/OX4, RESPONSIVE TO ALL STIMULI. RESPIRATION EVEN AND NON LABORED WITH NO ACUTE RESPIRATORY DISTRESS, ON ROOM AIR SATING 96%, HOB ELEVATED. ABD SOFT AND NON DISTENDED WITH ACTIVE BOWEL SOUNDS. SKIN WARM TO TOUCH AND DRY, LEFT LEG S/P BIOPSY DUE TO ON HEALING WOUND ON 04/02 PER REPORT, ELEVATED. PT DENIES PAIN AND DISCOMFORT. IV SITE AT RIGHT UPPER ARM PICC LINE, PATENT IN FLUSHING. BED IN LOW LOCKED POSITION, SR X2 UP FOR SAFETY, CALL LIGHT WITHIN REACH. WILL CONTINUE TO MONITOR CARE
[2020-04-05 08:22] VITALS: BP 136/49
[2020-04-05] MEDS: CITALOPRAM HYDROBROMIDE 20 MG TABLET PO SCH (08:35)
[2020-04-05] MEDS: GABAPENTIN 100 MG CAPSULE PO SCH ×2 (08:35→16:51)
[2020-04-05] MEDS: ACIDOPHILUS/BULGARICUS 1 EACH TAB.CHEW PO SCH (08:36)
[2020-04-05] MEDS: ASCORBIC ACID 500 MG TABLET PO SCH (08:36)
[2020-04-05] MEDS: HEPARIN SODIUM, PORCINE 5000 UNITS/1 ML VIAL SQ SCH ×2 (08:36→21:28)
[2020-04-05] MEDS: glipiZIDE 5 MG TABLET PO SCH ×2 (08:36→16:51)
[2020-04-05] MEDS: MULTIVITAMIN/LUTEIN/MINERALS 1 TAB PO SCH (08:37)
[2020-04-05] MEDS: AMLODIPINE BESYLATE 5 MG TABLET PO SCH (08:37)
[2020-04-05] MEDS: PROSOURCE / PROSTAT (PYXIS) 30 ML UDC PO SCH ×2 (09:15→17:20)
--- NOTE | 2020-04-05 09:19 | NUR ---
M/S RN NOTES PT SEEN AND EVALUATED BY DR. WOLFE NEPHMAI GARCIA.
--- NOTE | 2020-04-05 09:26 | NUR ---
M/S RN NOTES NEW ORDER FOR STOOL SOFTENER OBTAINED FROM DR. WOLFE D/T PT C/O NO BM X5 DAYS. ORDER READ BACK NOTED AND CARRIED OUT. BED SIDE COMMODE IN PLACE ON BEDSIDE FOR BM/URINE WITH SAFETY. JESUS LIGHT WITHIN REACH. WILL CONTINUE TO MONITOR
[2020-04-05] MEDS ORDERED: BISACODYL (5 MG) 5 MG TABLET.DR PO PRN (09:30)
--- NOTE | 2020-04-05 16:45 | NUR ---
M/S RN NOTES PT STATED SHE HAD A BM TODAY. ADVISED TO INC WATER INTAKE AND REPOSITION TOLERATED
[2020-04-05 16:48] VITALS: BP 137/68
--- NOTE | 2020-04-05 18:51 | NUR ---
M/S RN CLOSING NOTES PT A/OX 4, RESPONSIVE TO ALL STIMULI. NOT IN ACUTE RESPIRATORY DISTRESS, TOLERATING RA. ABD SOFT AND NON DISTENDED WITH ACTIVE BOWEL SOUNDS, BM TODAY, BEDSIDE COMMODE ON BEDSIDE. SKIN WARM TO TOUCH AND DRY, LEFT LEG ELEVATED AND OFFLOAD. PT PT DENIES PAIN AND DISCOMFORT. IV SITE RIGHT UPPER ARM PICC LINE, PATENT IN FLUSHING. BED IN LOCKED POSITION, CALL LIGHT WITHIN REACH, SR X2 UP FOR SAFETY. PT TO DISCHARGE TOMORROW TO HOME WITH IV ATB ROCEPHIN X 6 WKS. ENDORSED PT CARE TO NEXT SHIFT
--- NOTE | 2020-04-05 19:51 | NUR ---
MS RN OPENING NOTES RECEIVED PATIENT RESTING IN BED COMFORTABLY; A/OX4, PORTUGUESE SPEAKING; BREATHING EVEN AND UNLABORED; PATIENT TOLERATING ROOM AIR WELL; NO SOB NOTED; NO DISTRESS NOTED; PATIENT REPORTED TO BE DOING WELL; SONYA PICC LINE INTACT AND PATENT; FLUSHING WELL, NO S/S OF REDNESS OR INFILTRATION NOTED; SAFETY PRECAUTIONS IMPLEMENTED; BED LOCKED IN LOW POSITION; SIDE RAILSX2; CALL LIGHT WITHIN REACH; PATIENT ABLE TO MAKE NEEDS KNOWN; WILL CONT PLAN OF CARE AND CONT TO MONITOR
[2020-04-05 20:00] VITALS: BP 139/72
[2020-04-05] MEDS: CEFTRIAXONE 2 G in IV D5W 100 ML IV SCH (21:26)
[2020-04-05] MEDS: SIMVASTATIN 20 MG TABLET PO SCH (21:26)
[2020-04-05] MEDS: HOME MED MISCELLANEOUS PO SCH (21:27)
--- NOTE | 2020-04-05 21:45 | NUR ---
MS RN NOTES PATIENT REQUESTED NOT TO BE BOTHERED DURING THE NIGHT ONCE SHE IS SLEEPING; PATIENT WAS ASKED IF SHE NEEDED DIAPER CHANGE, PATIENT DECLINED; PATIENT INFORMED PICTURES OF WOUNDS NEED TO BE TAKEN, PATIENT VERBALIZED TO TRY LATER ON; PATIENT SAYS SHE HAS NOT GOTTEN MUCH SLEEP FOR THE PAST 5 DAYS. WILL CONT TO MONITOR
--- NOTE | 2020-04-06 06:01 | NUR ---
MS RN NOTES PATIENT AWAKE, VERBALIZED SHE FEELS WELL RESTED AND VERY THANKFUL WE DID NOT WAKE HER UP THROUGHOUT THE NIGHT; PATIENT REFUSED PICTURE OF SACRAL AREA; PATIENT EDUCATED ON PROTOCOL, PATIENT STILL REFUSED; WILL INFORM DAY SHIFT;
[2020-04-06 07:05] LABS: BASOPHILS # (AUTO) 0.1 /CMM (0.0-0.2); BASOPHILS % (AUTO) 0.6 % (0.0-2.0); EOSINOPHILS % (AUTO) 3.4 % (0.0-6.0); HEMATOCRIT 31 % (33-45); HEMOGLOBIN 10.2 g/dL (11.5-14.8); LYMPHOCYTES # (AUTO) 1.9 /CMM (0.8-4.8); LYMPHOCYTES % (AUTO) 18.8 % (20.0-44.0); MEAN CORPUSCULAR HGB CONC 33 g/dl (31.0-36.0); MEAN CORPUSCULAR VOLUME 86 fL (82-100); MONOCYTES # (AUTO) 0.8 /CMM (0.1-1.30); MONOCYTES % (AUTO) 7.5 % (2.0-12.0); NEUTROPHILS # (AUTO) 7.2 /CMM (1.8-8.9); NEUTROPHILS % (AUTO) 69.7 % (43.0-81.0); PLATELET COUNT (AUTO) 262 /CMM (150-450); RED BLOOD CELL COUNT(AUTO) 3.66 MIL/uL (4.0-5.2); WHITE BLOOD COUNT (AUTO) 10.3 K/uL (4.3-11.0)
[2020-04-06 07:10] LABS: CALCIUM, SERUM 8.1 mg/dL (8.5-10.1); CARBON DIOXIDE 27 mmol/L (21-32); CHLORIDE 104 mmol/L (98-107); GLUCOSE 110 mg/dL (74-106); POTASSIUM 4.4 mmol/L (3.5-5.1); SODIUM SERUM 139 mmol/L (136-145); UREA NITROGEN, BLOOD 58 mg/dL (7-18)
--- NOTE | 2020-04-06 07:20 | NUR ---
RN MS OPENING NOTE: Received patient laying in bed comfortably. Patient is alert, oriented X4. Patient denies pain or discomfort. Breathing unlabored and even. Patient tolerating room air with no issues. Left toe dressing clean and dry. Safety precaution maintained. Bed is in lowest position, both upper side rails up, brakes on, and call light within reach. Will continue to monitor and continue plan of care.
--- NOTE | 2020-04-06 07:32 | NUR ---
MS RN CLOSING NOTES PATIENT RESTING IN BED COMFORTABLY; A/OX4; BREATHING EVEN AND UNLABORED; PATIENT TOLERATING ROOM AIR WELL; NO SOB NOTED; NO DISTRESS NOTED; PATIENT REFUSING PICTURES; R UA PICC LINE INTACT AND PATENT; FLUSHING WELL; NO S/S OF REDNESS OR INFILTRATION; PATIENT ABLE TO MAKE NEEDS KNOWN; ALL NEEDS RENDERED; SAFETY PRECAUTIONS IMPLEMENTED; BED LOCKED IN LOW POSITION; SIDE RAILS X2; CALL LIGHT WITHIN REACH; WILL ENDORSE IRENA TO ONCOMING SHIFT
[2020-04-06] MEDS: BLOOD SUGAR DIAGNOSTIC 1 EACH STRIP IN SCH ×4 (07:42→21:25)
[2020-04-06 08:00] VITALS: BP 125/55
[2020-04-06] MEDS: CITALOPRAM HYDROBROMIDE 20 MG TABLET PO SCH (09:02)
[2020-04-06] MEDS: ACIDOPHILUS/BULGARICUS 1 EACH TAB.CHEW PO SCH (09:02)
[2020-04-06] MEDS: ASCORBIC ACID 500 MG TABLET PO SCH (09:02)
[2020-04-06] MEDS: GABAPENTIN 100 MG CAPSULE PO SCH ×2 (09:02→16:33)
[2020-04-06] MEDS: MULTIVITAMIN/LUTEIN/MINERALS 1 TAB PO SCH (09:02)
[2020-04-06] MEDS: AMLODIPINE BESYLATE 5 MG TABLET PO SCH (09:03)
[2020-04-06] MEDS: glipiZIDE 5 MG TABLET PO SCH ×2 (09:03→16:32)
[2020-04-06] MEDS: HEPARIN SODIUM, PORCINE 5000 UNITS/1 ML VIAL SQ SCH ×2 (09:04→21:11)
[2020-04-06] MEDS: PROSOURCE / PROSTAT (PYXIS) 30 ML UDC PO SCH ×2 (09:05→16:32)
[2020-04-06 16:00] VITALS: BP 128/63
--- NOTE | 2020-04-06 17:50 | NUR ---
RN MS NOTE: Dr. Arias called regarding patient's current status. Informed MD that patient is still exhibiting the same behavior. Per Dr. Arias, she will call back in 30 minute to get another update.
--- NOTE | 2020-04-06 18:31 | NUR ---
RN MS CLOSING NOTE: Patient resting in bed comfortably. Patient denies pain or discomfort. No SOB. Breathing is unlabored and equal. Left foot dressing is clean and dry. Maintain safety precaution. Bed in lowest position, locked. Bed side rails up x2. Call light within reach. No S/S of acute distress or no acute distress.
--- NOTE | 2020-04-06 19:38 | NUR ---
MS RN OPENING NOTES PATIENT RECEIVED RESTING IN BED A/O X 4, ABLE TO MAKE NEEDS KNOWN. STABLE ON RA WITH BREATHING EVEN AND UNLABORED, NO SOB NOTED. NO SIGS OF ACUTE DISTRESS. NO COMPLAINTS OF PAIN OR DISCOMFORT. DRESSING ON LEFT LOWER EXTREM NOTED AND IN PLACE, CLEAN AND DRY. PICC LINE LOCATED ON SONYA. SAFETY PRECAUTIONS IN PLACE WITH BED IN LOWEST POSITION, CALL LIGHT WITHIN REACH, BREAKS ON, SIDE RAILS UP. WILL CONTINUE TO MONITOR THROUGHOUT THE SHIFT.
[2020-04-06 20:00] VITALS: BP 134/59
[2020-04-06] MEDS: SIMVASTATIN 20 MG TABLET PO SCH (21:10)
[2020-04-06] MEDS: CEFTRIAXONE 2 G in IV D5W 100 ML IV SCH (21:11)
[2020-04-06] MEDS: HOME MED MISCELLANEOUS PO SCH (21:11)
[2020-04-07 06:25] LABS: CALCIUM, SERUM 8.3 mg/dL (8.5-10.1); CARBON DIOXIDE 31 mmol/L (21-32); CHLORIDE 103 mmol/L (98-107); CREATININE 2.2 mg/dL (0.6-1.3); GLUCOSE 115 mg/dL (74-106); POTASSIUM 4.1 mmol/L (3.5-5.1); SODIUM SERUM 138 mmol/L (136-145); UREA NITROGEN, BLOOD 64 mg/dL (7-18)
[2020-04-07] MEDS: BLOOD SUGAR DIAGNOSTIC 1 EACH STRIP IN SCH ×2 (06:53→12:24)
--- NOTE | 2020-04-07 06:58 | NUR ---
MS RN CLOSING NOTES PATIENT RESTING IN BED A/O X 4, ABLE TO MAKE NEEDS KNOWN. STABLE ON RA WITH BREATHING EVEN AND UNLABORED, NO SOB NOTED. NO SIGS OF ACUTE DISTRESS. NO COMPLAINTS OF PAIN OR DISCOMFORT. DRESSING ON LEFT LOWER EXTREM NOTED AND IN PLACE, CLEAN AND DRY. PICC LINE LOCATED ON SONYA. SAFETY PRECAUTIONS IN PLACE WITH BED IN LOWEST POSITION, CALL LIGHT WITHIN REACH, BREAKS ON, SIDE RAILS UP. WILL CONTINUE TO MONITOR THROUGHOUT THE SHIFT.
[2020-04-07 08:00] VITALS: BP 125/63
[2020-04-07] MEDS: ASCORBIC ACID 500 MG TABLET PO SCH (08:13)
[2020-04-07] MEDS: glipiZIDE 5 MG TABLET PO SCH (08:13)
[2020-04-07] MEDS: MULTIVITAMIN/LUTEIN/MINERALS 1 TAB PO SCH (08:13)
[2020-04-07 08:14] VITALS: BP 125/63
[2020-04-07] MEDS: AMLODIPINE BESYLATE 5 MG TABLET PO SCH (08:14)
[2020-04-07] MEDS: ACIDOPHILUS/BULGARICUS 1 EACH TAB.CHEW PO SCH (08:14)
[2020-04-07] MEDS: GABAPENTIN 100 MG CAPSULE PO SCH (08:14)
[2020-04-07] MEDS: CITALOPRAM HYDROBROMIDE 20 MG TABLET PO SCH (08:14)
[2020-04-07] MEDS: PROSOURCE / PROSTAT (PYXIS) 30 ML UDC PO SCH (08:19)
[2020-04-07] MEDS: HEPARIN SODIUM, PORCINE 5000 UNITS/1 ML VIAL SQ SCH (08:19)
[2020-04-07] MEDS ORDERED: CEFT2VIA14 IV (13:56)
--- NOTE | 2020-04-07 14:45 | NUR ---
Report called to [facility] ( ARU) . 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
--- NOTE | 2020-04-07 16:15 | NUR ---
PAtient cleared for d/c to ARU by MD. Patient awake alert and oriented x3, able to make needs known. VS are stable and within baseline, afebrile. D/C pictures taken and place in patient's chart. PAtient has skin issues and diaper is not recommended. Diaper placed only for transportation to ARU per patient's request. Patient has SONYA midline , flusing well. Patient will continue on IV antibiotic for 6 weeks. Med reconciliation form provided. Patient received d/c instructions and education and verbalized understanding. 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 All needs attended prior d/c. Patient picked up by ambulance.
== END 2020-04-07 16:15 | DRG 982 ==
LOC: ER 11:38 → MEDSG2 13:52
PROVIDERS: ADMIT Internal Medicine; ATTEND Hospitalist
PROC: 0J9R0ZZ Drainage of Left Foot Subcutaneous Tissue and Fascia, Open Approach (ICD-10-PCS; principal; 2020-04-02)
PROC: 0QH Lower Bones, Insertion (ICD-10-PCS; 2020-04-02)
PROC: 02HV33Z Insertion of Infusion Device into Superior Vena Cava, Percutaneous Approach (ICD-10-PCS; 2020-04-02)
PROC: B548ZZA Ultrasonography of Superior Vena Cava, Guidance (ICD-10-PCS; 2020-04-02)
DX: E11.69 Type 2 diabetes mellitus with other specified complication (principal); L03.116 Cellulitis of left lower limb; M86.672 Other chronic osteomyelitis, left ankle and foot; N17.0 Acute kidney failure with tubular necrosis; L97.529 Non-pressure chronic ulcer of other part of left foot with unspecified severity; E11.621 Type 2 diabetes mellitus with foot ulcer; N18.9 Chronic kidney disease, unspecified; I12.9 Hypertensive chronic kidney disease with stage 1 through stage 4 chronic kidney disease, or unspecified chronic kidney disease; Z90.13 Acquired absence of bilateral breasts and nipples; Z85.3 Personal history of malignant neoplasm of breast; R32 Unspecified urinary incontinence; Z88.8 Allergy status to other drugs, medicaments and biological substances; Z91.018 Allergy to other foods; Z79.84 Long term (current) use of oral hypoglycemic drugs; Z79.899 Other long term (current) drug therapy; F02.80 Dementia in other diseases classified elsewhere, unspecified severity, without behavioral disturbance, psychotic disturbance, mood disturbance, and anxiety; D63.8 Anemia in other chronic diseases classified elsewhere; G20 Parkinson's disease; E78.5 Hyperlipidemia, unspecified; Z68.32 Body mass index [BMI] 32.0-32.9, adult; E66.9 Obesity, unspecified; F41.9 Anxiety disorder, unspecified; S92.402A Displaced unspecified fracture of left great toe, initial encounter for closed fracture; X58.XXXA Exposure to other specified factors, initial encounter; Y92.9 Unspecified place or not applicable; E11.65 Type 2 diabetes mellitus with hyperglycemia; E11.22 Type 2 diabetes mellitus with diabetic chronic kidney disease; E11.40 Type 2 diabetes mellitus with diabetic neuropathy, unspecified; M85.80 Other specified disorders of bone density and structure, unspecified site; M19.90 Unspecified osteoarthritis, unspecified site
CPT/HCPCS: 36415; 73630-TC; 73718-TC; 80048-TC; 80053-TC; 80061-TC; 80202-TC; 81000-TC; 82550-TC; 82570-TC; 82962-TC; 83735-TC; 83970; 84100-TC; 84155; 84155-TC; 84165; 84300-TC; 85025-TC; 85610-TC; 85652-TC; 86140-TC; 87070-TC; 87081-TC; 87086-TC; 88305-TC; 88311-TC; 97110-TC; 97112-TC; 97530-TC; A4217; A6253; A6403; C1713; C1751; G0378; J0690; J0696; J1580; J1644; J2250; J2405; J2543; J2704; J2765; J3010; J3370; J3490; J7030; J7050; J7060

== ENCOUNTER 2020-05-08 10:45 | Outpatient (CLI) | payer MEDICARE, MEDICAID ==
[~2020-05-08 10:45] MED LIST changes: +AMIN30LI2 PO; +ASCO-352 PO; -CANA1TAB4 PO; +CEFT2VIA14 IV; -DICL1ADH11 TP; +EMPA25TA PO; -ERGO500040 PO; +FOLI1TAB25 PO; +GABA-532 PO; -GABA100C PO; -GLIM1TAB18 PO; +GLIP5TAB13 PO; +LACT10SO29 PO; +LACT1CAP97 PO; -NYST15PO4 TP; +PROP15DR EACHEYE
[2020-05-08 12:42] LABS: BASOPHILS # (AUTO) 0.2 /CMM (0.0-0.2); BASOPHILS % (AUTO) 2.7 % (0.0-2.0); EOSINOPHILS % (AUTO) 5.3 % (0.0-6.0); HEMATOCRIT 28 % (33-45); HEMOGLOBIN 9.1 g/dL (11.5-14.8); LYMPHOCYTES # (AUTO) 1.5 /CMM (0.8-4.8); LYMPHOCYTES % (AUTO) 19.3 % (20.0-44.0); MEAN CORPUSCULAR HGB CONC 32 g/dl (31.0-36.0); MEAN CORPUSCULAR VOLUME 86 fL (82-100); MONOCYTES # (AUTO) 0.6 /CMM (0.1-1.30); MONOCYTES % (AUTO) 7.1 % (2.0-12.0); NEUTROPHILS # (AUTO) 5.1 /CMM (1.8-8.9); NEUTROPHILS % (AUTO) 65.6 % (43.0-81.0); PLATELET COUNT (AUTO) 240 /CMM (150-450); WHITE BLOOD COUNT (AUTO) 7.8 K/uL (4.3-11.0)
== END 2020-05-08 23:59 | disposition home health service (06) ==
LOC: WOU 10:45
PROVIDERS: ATTEND Podiatrist Foot & Ankle Surgery
DX: E11.40 Type 2 diabetes mellitus with diabetic neuropathy, unspecified (principal); E11.69 Type 2 diabetes mellitus with other specified complication; M86.672 Other chronic osteomyelitis, left ankle and foot; Z79.84 Long term (current) use of oral hypoglycemic drugs; Z79.899 Other long term (current) drug therapy
CPT/HCPCS: 36415; 85025; 85652; A6209; G0463

== ENCOUNTER 2020-05-11 15:22 | Outpatient (CLI) | payer MEDICARE, MEDICAID | END 2020-05-11 23:59 | disposition home or self-care (01) | LOC: MSC 15:22 | PROVIDERS: ATTEND Internal Medicine | DX: E11.22 Type 2 diabetes mellitus with diabetic chronic kidney disease (principal); N18.3 Chronic kidney disease, stage 3 (moderate); Z79.84 Long term (current) use of oral hypoglycemic drugs; K59.00 Constipation, unspecified; G47.00 Insomnia, unspecified; K21.9 Gastro-esophageal reflux disease without esophagitis; E66.9 Obesity, unspecified; Z68.29 Body mass index [BMI] 29.0-29.9, adult; L29.9 Pruritus, unspecified; Z79.899 Other long term (current) drug therapy ==

== ENCOUNTER 2020-05-25 12:42 | Outpatient (CLI) | payer MEDICARE, MEDICAID | END 2020-05-25 23:59 | disposition home or self-care (01) | LOC: RAD 12:42 | PROVIDERS: ATTEND Podiatrist Foot & Ankle Surgery | DX: S92.422D Displaced fracture of distal phalanx of left great toe, subsequent encounter for fracture with routine healing (principal); M77.32 Calcaneal spur, left foot; M85.872 Other specified disorders of bone density and structure, left ankle and foot; M79.89 Other specified soft tissue disorders; X58.XXXD Exposure to other specified factors, subsequent encounter | CPT/HCPCS: 73620-TC ==

== ENCOUNTER 2020-05-26 11:00 | Outpatient (CLI) | payer MEDICARE, MEDICAID | END 2020-05-26 23:59 | disposition home health service (06) | LOC: WOU 11:00 | PROVIDERS: ATTEND Podiatrist Foot & Ankle Surgery | DX: B35.1 Tinea unguium (principal); L60.2 Onychogryphosis; E11.40 Type 2 diabetes mellitus with diabetic neuropathy, unspecified; Z79.84 Long term (current) use of oral hypoglycemic drugs; R60.0 Localized edema; M79.672 Pain in left foot; Z79.899 Other long term (current) drug therapy | CPT/HCPCS: G0463 ==

== ENCOUNTER 2020-06-30 12:00 | Outpatient (CLI) | payer MEDICARE, MEDICAID | END 2020-06-30 23:59 | disposition home health service (06) | LOC: WOU 12:00 | PROVIDERS: ATTEND Podiatrist Foot & Ankle Surgery | DX: B35.1 Tinea unguium (principal); L60.2 Onychogryphosis; E11.40 Type 2 diabetes mellitus with diabetic neuropathy, unspecified; R60.0 Localized edema; M79.672 Pain in left foot; M79.671 Pain in right foot; Z79.84 Long term (current) use of oral hypoglycemic drugs; Z79.899 Other long term (current) drug therapy | CPT/HCPCS: G0463 ==

== ENCOUNTER 2020-07-07 11:00 | Outpatient (CLI) | payer MEDICARE, MEDICAID | END 2020-07-07 23:59 | disposition home or self-care (01) | LOC: MSC 11:00 | PROVIDERS: ATTEND Anesthesiology | DX: M79.2 Neuralgia and neuritis, unspecified (principal); G89.4 Chronic pain syndrome; M54.5 Low back pain; M62.830 Muscle spasm of back; E11.40 Type 2 diabetes mellitus with diabetic neuropathy, unspecified; M19.90 Unspecified osteoarthritis, unspecified site; Z99.89 Dependence on other enabling machines and devices; Z79.899 Other long term (current) drug therapy ==

== ENCOUNTER 2020-07-28 10:30 | Outpatient (CLI) | payer MEDICARE, MEDICAID ==
[2020-07-28] MEDS ORDERED: HYDROCORTISONE 1% CREAM 28.35 GM TUBE TP ONE (12:07)
== END 2020-07-28 23:59 | disposition home health service (06) ==
LOC: WOU 10:30
PROVIDERS: ATTEND Podiatrist Foot & Ankle Surgery
DX: E11.40 Type 2 diabetes mellitus with diabetic neuropathy, unspecified (principal); B35.1 Tinea unguium; M76.822 Posterior tibial tendinitis, left leg; R21 Rash and other nonspecific skin eruption; L60.2 Onychogryphosis; R60.0 Localized edema; M79.662 Pain in left lower leg; Z79.84 Long term (current) use of oral hypoglycemic drugs; Z79.899 Other long term (current) drug therapy
CPT/HCPCS: G0463

== ENCOUNTER 2020-09-11 10:35 | Outpatient (CLI) | payer MEDICARE, MEDICAID | END 2020-09-11 23:59 | disposition home health service (06) | LOC: WOU 10:35 | PROVIDERS: ATTEND Podiatrist Foot & Ankle Surgery | DX: M76.822 Posterior tibial tendinitis, left leg (principal); B35.1 Tinea unguium; R60.0 Localized edema; E11.40 Type 2 diabetes mellitus with diabetic neuropathy, unspecified; Z79.84 Long term (current) use of oral hypoglycemic drugs; L60.2 Onychogryphosis; M79.622 Pain in left upper arm; R21 Rash and other nonspecific skin eruption; Z79.899 Other long term (current) drug therapy | CPT/HCPCS: G0463 ==

== ENCOUNTER 2020-11-03 10:30 | Outpatient (CLI) | payer MEDICARE, MEDICAID ==
[2020-11-03] MEDS ORDERED: UREA 10% -AHA 4% CREAM 57 GM TUBE ONE (11:14)
== END 2020-11-03 23:59 | disposition home health service (06) ==
LOC: WOU 10:30
PROVIDERS: ATTEND Podiatrist Foot & Ankle Surgery
DX: B35.1 Tinea unguium (principal); E11.40 Type 2 diabetes mellitus with diabetic neuropathy, unspecified; Z79.84 Long term (current) use of oral hypoglycemic drugs; M76.822 Posterior tibial tendinitis, left leg; R60.0 Localized edema; L60.2 Onychogryphosis; R21 Rash and other nonspecific skin eruption; M79.662 Pain in left lower leg; Z79.899 Other long term (current) drug therapy
CPT/HCPCS: G0463

== ENCOUNTER 2020-12-18 10:30 | Outpatient (CLI) | payer MEDICARE, OTHER ==
[~2020-12-18 10:30] MED LIST changes: -FOLI1TAB25 PO; +FOLI1TAB26 PO
== END 2020-12-18 23:59 | disposition home health service (06) ==
LOC: WOU 10:30
PROVIDERS: ATTEND Podiatrist Foot & Ankle Surgery
DX: E11.40 Type 2 diabetes mellitus with diabetic neuropathy, unspecified (principal); Z79.899 Other long term (current) drug therapy; B35.1 Tinea unguium; R60.0 Localized edema; M76.822 Posterior tibial tendinitis, left leg; M79.662 Pain in left lower leg; L60.2 Onychogryphosis; Z79.84 Long term (current) use of oral hypoglycemic drugs
CPT/HCPCS: G0463

== ENCOUNTER 2021-02-09 10:35 | Outpatient (CLI) | payer MEDICARE, OTHER ==
[2021-02-09] MEDS ORDERED: MUPIROCIN 2% CREAM 15 GM TUBE TP ONE (11:44)
== END 2021-02-09 23:59 | disposition home health service (06) ==
LOC: WOU 10:35
PROVIDERS: ATTEND Podiatrist Foot & Ankle Surgery
DX: E11.622 Type 2 diabetes mellitus with other skin ulcer (principal); L97.222 Non-pressure chronic ulcer of left calf with fat layer exposed; E11.40 Type 2 diabetes mellitus with diabetic neuropathy, unspecified; I89.0 Lymphedema, not elsewhere classified; B35.1 Tinea unguium; M76.822 Posterior tibial tendinitis, left leg; L60.2 Onychogryphosis; R21 Rash and other nonspecific skin eruption; Z79.84 Long term (current) use of oral hypoglycemic drugs; Z79.899 Other long term (current) drug therapy
CPT/HCPCS: 11042

== ENCOUNTER 2021-02-11 11:50 | Outpatient (CLI) | payer MEDICARE, OTHER | END 2021-02-11 23:59 | disposition home or self-care (01) | LOC: CARD 11:50 | PROVIDERS: ATTEND Podiatrist Foot & Ankle Surgery | DX: I70.203 Unspecified atherosclerosis of native arteries of extremities, bilateral legs (principal); I89.0 Lymphedema, not elsewhere classified | CPT/HCPCS: 93970-TC ==

== ENCOUNTER 2021-02-16 10:55 | Outpatient (CLI) | payer MEDICARE, OTHER ==
[2021-02-16] MEDS ORDERED: LIDOCAINE SOLN 4% 50 ML BOTTLE ONE (11:03)
[2021-02-16] MEDS ORDERED: GENTAMICIN 0.1% CREAM 15 GM TUBE ONE (11:18)
== END 2021-02-16 23:59 | disposition home health service (06) ==
LOC: WOU 10:55
PROVIDERS: ATTEND Podiatrist Foot & Ankle Surgery
DX: E11.622 Type 2 diabetes mellitus with other skin ulcer (principal); L97.828 Non-pressure chronic ulcer of other part of left lower leg with other specified severity; E11.40 Type 2 diabetes mellitus with diabetic neuropathy, unspecified; Z79.84 Long term (current) use of oral hypoglycemic drugs; I89.0 Lymphedema, not elsewhere classified; L60.2 Onychogryphosis; B35.1 Tinea unguium; M79.662 Pain in left lower leg; M76.822 Posterior tibial tendinitis, left leg; I10 Essential (primary) hypertension; Z79.899 Other long term (current) drug therapy
CPT/HCPCS: 11042

== ENCOUNTER 2021-02-18 09:58 | Outpatient (CLI) | payer MEDICARE, OTHER ==
[2021-02-18 12:19] LABS: BASOPHILS # (AUTO) 0.1 /CMM (0.0-0.2); BASOPHILS % (AUTO) 0.8 % (0.0-2.0); EOSINOPHILS % (AUTO) 3.6 % (0.0-6.0); HEMATOCRIT 26 % (33-45); HEMOGLOBIN 8.2 g/dL (11.5-14.8); LYMPHOCYTES # (AUTO) 2.4 /CMM (0.8-4.8); LYMPHOCYTES % (AUTO) 24.6 % (20.0-44.0); MEAN CORPUSCULAR HGB CONC 31 g/dl (31.0-36.0); MEAN CORPUSCULAR VOLUME 78 fL (82-100); MONOCYTES # (AUTO) 0.7 /CMM (0.1-1.30); NEUTROPHILS # (AUTO) 6.1 /CMM (1.8-8.9); PLATELET COUNT (AUTO) 332 /CMM (150-450); RED BLOOD CELL COUNT(AUTO) 3.38 MIL/uL (4.0-5.2); WHITE BLOOD COUNT (AUTO) 9.5 K/uL (4.3-11.0)
[2021-02-18 14:02] LABS: C-REACTIVE PROTEIN 1.2 mg/dL (0.0-0.9); FREE T4 (FREE THYROXINE) 0.94 ng/dL (0.76-1.46); THYROID STIMULATING HORMONE 1.996 uIU/mL (0.358-3.74)
[2021-02-18 14:09] LABS: ALANINE AMINOTRANSFERASE 13 U/L (12-78); ALBUMIN 2.8 g/dL (3.4-5.0); ALKALINE PHOSPHATASE 99 U/L (46-116); ASPARTATE AMINOTRANSFERASE 18 U/L (15-37); BILIRUBIN,TOTAL 0.2 mg/dL (0.2-1.0); CALCIUM, SERUM 7.9 mg/dL (8.5-10.1); CARBON DIOXIDE 20 mmol/L (21-32); CHLORIDE 106 mmol/L (98-107); CREATININE 2.2 mg/dL (0.6-1.3); GLUCOSE 192 mg/dL (74-106); MAGNESIUM 1.8 mg/dL (1.8-2.4); PHOSPHORUS 5.1 mg/dL (2.5-4.9); POTASSIUM 4.9 mmol/L (3.5-5.1); SODIUM SERUM 138 mmol/L (136-145); TOTAL PROTEIN, SERUM 8.2 g/dL (6.4-8.2)
[2021-02-18 15:55] LABS: UREA NITROGEN, BLOOD 76 mg/dL (7-18)
== END 2021-02-18 23:59 | disposition home or self-care (01) ==
LOC: MSC 09:58
PROVIDERS: ATTEND Internal Medicine
DX: R60.0 Localized edema (principal); G62.9 Polyneuropathy, unspecified; E11.22 Type 2 diabetes mellitus with diabetic chronic kidney disease; N18.31 Chronic kidney disease, stage 3a; Z79.84 Long term (current) use of oral hypoglycemic drugs; G47.00 Insomnia, unspecified; L29.9 Pruritus, unspecified; E78.5 Hyperlipidemia, unspecified; K59.00 Constipation, unspecified; M25.569 Pain in unspecified knee; E66.9 Obesity, unspecified; Z68.29 Body mass index [BMI] 29.0-29.9, adult; Z79.899 Other long term (current) drug therapy
CPT/HCPCS: 36415; 80048; 80053; 83036; 83735; 84100; 84439; 84443; 85025; 85652; 86140; G0463

== ENCOUNTER 2021-02-25 10:00 | Outpatient (CLI) | payer MEDICARE, OTHER ==
[2021-02-25 12:01] LABS: URINE TOTAL PROTEIN 70.2 mg/dL (0-11.9)
[2021-02-25 12:22] LABS: BILIRUBIN,URINE NEGATIVE (NEGATIVE); LEUKOCYTE ESTERASE ,URINE SMALL (NEGATIVE); NITRITE, URINE POSITIVE (NEGATIVE); PH,URINE 5.5 (5.0-8.0); PROTEIN,URINE 30 mg/dl (NEGATIVE); UGLUCOSE >=1000 mg/dL (NEGATIVE); UROBILINOGEN,URINE 0.2 EU/dL (0.2)
[2021-02-25 12:23] LABS: COLOR,URINE STRAW (YELLOW)
[2021-02-25 12:31] LABS: ALANINE AMINOTRANSFERASE 14 U/L (12-78); ALBUMIN 2.8 g/dL (3.4-5.0); ALKALINE PHOSPHATASE 83 U/L (46-116); ASPARTATE AMINOTRANSFERASE 15 U/L (15-37); BILIRUBIN,TOTAL 0.1 mg/dL (0.2-1.0); CALCIUM, SERUM 8.4 mg/dL (8.5-10.1); CARBON DIOXIDE 20 mmol/L (21-32); CHLORIDE 106 mmol/L (98-107); GLUCOSE 163 mg/dL (74-106); MAGNESIUM 1.8 mg/dL (1.8-2.4); POTASSIUM 5.1 mmol/L (3.5-5.1); SODIUM SERUM 140 mmol/L (136-145); TOTAL PROTEIN, SERUM 8.1 g/dL (6.4-8.2); UREA NITROGEN, BLOOD 73 mg/dL (7-18)
== END 2021-02-25 23:59 | disposition home or self-care (01) ==
LOC: MSC 10:00
PROVIDERS: ATTEND Internal Medicine
DX: R60.0 Localized edema (principal); E11.22 Type 2 diabetes mellitus with diabetic chronic kidney disease; N18.31 Chronic kidney disease, stage 3a; Z79.84 Long term (current) use of oral hypoglycemic drugs; G62.9 Polyneuropathy, unspecified; L29.9 Pruritus, unspecified; E78.5 Hyperlipidemia, unspecified; K21.9 Gastro-esophageal reflux disease without esophagitis; G47.00 Insomnia, unspecified; M25.569 Pain in unspecified knee; E66.9 Obesity, unspecified; Z68.29 Body mass index [BMI] 29.0-29.9, adult; Z79.899 Other long term (current) drug therapy
CPT/HCPCS: 36415; 80053; 81001; 82043; 82570; 83735; 84100; 84155; 87086; G0463

== ENCOUNTER 2021-03-11 10:45 | Outpatient (CLI) | payer MEDICARE, OTHER | END 2021-03-11 23:59 | disposition home or self-care (01) | LOC: MSC 10:45 | PROVIDERS: ATTEND Internal Medicine | DX: E11.22 Type 2 diabetes mellitus with diabetic chronic kidney disease (principal); I12.9 Hypertensive chronic kidney disease with stage 1 through stage 4 chronic kidney disease, or unspecified chronic kidney disease; N18.31 Chronic kidney disease, stage 3a; Z79.84 Long term (current) use of oral hypoglycemic drugs; R60.0 Localized edema; L29.9 Pruritus, unspecified; E78.5 Hyperlipidemia, unspecified; K59.00 Constipation, unspecified; K21.9 Gastro-esophageal reflux disease without esophagitis; G47.00 Insomnia, unspecified; M25.569 Pain in unspecified knee; E66.9 Obesity, unspecified; Z79.899 Other long term (current) drug therapy ==

== ENCOUNTER 2021-03-16 10:30 | Outpatient (CLI) | payer MEDICARE, OTHER | END 2021-03-16 23:59 | disposition home health service (06) | LOC: WOU 10:30 | PROVIDERS: ATTEND Podiatrist Foot & Ankle Surgery | DX: E11.622 Type 2 diabetes mellitus with other skin ulcer (principal); L97.828 Non-pressure chronic ulcer of other part of left lower leg with other specified severity; E11.40 Type 2 diabetes mellitus with diabetic neuropathy, unspecified; Z79.84 Long term (current) use of oral hypoglycemic drugs; B35.1 Tinea unguium; L60.2 Onychogryphosis; I89.0 Lymphedema, not elsewhere classified; M76.822 Posterior tibial tendinitis, left leg; M79.662 Pain in left lower leg; R21 Rash and other nonspecific skin eruption; Z79.899 Other long term (current) drug therapy | CPT/HCPCS: 11042 ==

== ENCOUNTER 2021-03-19 08:30 | Outpatient (CLI) | payer MEDICARE, OTHER ==
[2021-03-19 09:09] LABS: BASOPHILS # (AUTO) 0.1 /CMM (0.0-0.2); BASOPHILS % (AUTO) 0.8 % (0.0-2.0); EOSINOPHILS % (AUTO) 2.7 % (0.0-6.0); HEMATOCRIT 28 % (33-45); HEMOGLOBIN 8.6 g/dL (11.5-14.8); LYMPHOCYTES # (AUTO) 2.1 /CMM (0.8-4.8); LYMPHOCYTES % (AUTO) 21.1 % (20.0-44.0); MEAN CORPUSCULAR HGB CONC 31 g/dl (31.0-36.0); MEAN CORPUSCULAR VOLUME 78 fL (82-100); MONOCYTES # (AUTO) 0.7 /CMM (0.1-1.30); MONOCYTES % (AUTO) 7.2 % (2.0-12.0); NEUTROPHILS # (AUTO) 6.7 /CMM (1.8-8.9); NEUTROPHILS % (AUTO) 68.2 % (43.0-81.0); PLATELET COUNT (AUTO) 319 /CMM (150-450); RED BLOOD CELL COUNT(AUTO) 3.56 MIL/uL (4.0-5.2); WHITE BLOOD COUNT (AUTO) 9.8 K/uL (4.3-11.0)
[2021-03-19 09:40] LABS: C-REACTIVE PROTEIN 0.2 mg/dL (0.0-0.9); CHOLESTEROL 114 mg/dL (<200); HDL CHOLESTEROL 53 mg/dL (40-60); LDL 50 mg/dL (0-99); TRIGLYCERIDES 71 mg/dL (30-150)
[2021-03-19 10:09] LABS: ALANINE AMINOTRANSFERASE 13 U/L (12-78); ALBUMIN 3.1 g/dL (3.4-5.0); ALKALINE PHOSPHATASE 77 U/L (46-116); ASPARTATE AMINOTRANSFERASE 16 U/L (15-37); BILIRUBIN,TOTAL 0.3 mg/dL (0.2-1.0); CALCIUM, SERUM 8.6 mg/dL (8.5-10.1); CARBON DIOXIDE 23 mmol/L (21-32); CHLORIDE 108 mmol/L (98-107); CREATININE 2.3 mg/dL (0.6-1.3); GLUCOSE 131 mg/dL (74-106); MAGNESIUM 1.9 mg/dL (1.8-2.4); POTASSIUM 4.8 mmol/L (3.5-5.1); SODIUM SERUM 142 mmol/L (136-145); TOTAL PROTEIN, SERUM 8.7 g/dL (6.4-8.2)
[2021-03-19 10:12] LABS: UREA NITROGEN, BLOOD 81 mg/dL (7-18)
[2021-03-19 14:11] LABS: BILIRUBIN,URINE NEGATIVE (NEGATIVE); COLOR,URINE YELLOW (YELLOW); LEUKOCYTE ESTERASE ,URINE MODERATE (NEGATIVE); NITRITE, URINE POSITIVE (NEGATIVE); PH,URINE 5.5 (5.0-8.0); PROTEIN,URINE TRACE mg/dl (NEGATIVE); UGLUCOSE >=1000 mg/dL (NEGATIVE); UROBILINOGEN,URINE 0.2 EU/dL (0.2)
[2021-03-19 14:19] LABS: BACTERIA,URINE 4+ /HPF (None Seen); MUCUS,URINE Few /LPF (None Seen); SQUAMOUS EPITHELIAL CELL,UR Moderate /HPF (None Seen); URINE AMORPHOUS URATE Many /HPF (None Seen); WBC,URINE TOO NUMEROUS TO COUN /HPF (0-3)
== END 2021-03-19 23:59 | disposition home or self-care (01) ==
LOC: LAB 08:30
PROVIDERS: ATTEND Internal Medicine
DX: I12.9 Hypertensive chronic kidney disease with stage 1 through stage 4 chronic kidney disease, or unspecified chronic kidney disease (principal); E11.22 Type 2 diabetes mellitus with diabetic chronic kidney disease; N18.4 Chronic kidney disease, stage 4 (severe)
CPT/HCPCS: 36415; 80053-TC; 80061-TC; 81001; 82306; 82607-TC; 83735-TC; 84100-TC; 85025-TC; 85652-TC; 86140-TC; 87086-TC

== ENCOUNTER 2021-03-25 11:10 | Outpatient (CLI) | payer MEDICARE, OTHER | END 2021-03-25 23:59 | disposition home or self-care (01) | LOC: MSC 11:10 | PROVIDERS: ATTEND Internal Medicine | DX: R60.0 Localized edema (principal); M79.604 Pain in right leg; M79.605 Pain in left leg; E11.22 Type 2 diabetes mellitus with diabetic chronic kidney disease; I12.9 Hypertensive chronic kidney disease with stage 1 through stage 4 chronic kidney disease, or unspecified chronic kidney disease; N18.31 Chronic kidney disease, stage 3a; Z79.84 Long term (current) use of oral hypoglycemic drugs; G62.9 Polyneuropathy, unspecified; E78.5 Hyperlipidemia, unspecified; G47.00 Insomnia, unspecified; M25.569 Pain in unspecified knee; E66.9 Obesity, unspecified; Z79.899 Other long term (current) drug therapy ==

== ENCOUNTER 2021-04-05 08:10 | Outpatient (CLI) | payer MEDICARE, OTHER ==
[2021-04-05 09:05] LABS: BASOPHILS # (AUTO) 0.1 /CMM (0.0-0.2); EOSINOPHILS % (AUTO) 2.8 % (0.0-6.0); HEMATOCRIT 27 % (33-45); HEMOGLOBIN 8.4 g/dL (11.5-14.8); LYMPHOCYTES % (AUTO) 24.1 % (20.0-44.0); MEAN CORPUSCULAR HGB CONC 31 g/dl (31.0-36.0); MEAN CORPUSCULAR VOLUME 78 fL (82-100); MONOCYTES # (AUTO) 0.6 /CMM (0.1-1.30); MONOCYTES % (AUTO) 7.2 % (2.0-12.0); NEUTROPHILS # (AUTO) 5.4 /CMM (1.8-8.9); NEUTROPHILS % (AUTO) 64.9 % (43.0-81.0); PLATELET COUNT (AUTO) 295 /CMM (150-450); RED BLOOD CELL COUNT(AUTO) 3.49 MIL/uL (4.0-5.2); WHITE BLOOD COUNT (AUTO) 8.3 K/uL (4.3-11.0)
[2021-04-05 09:29] LABS: ALANINE AMINOTRANSFERASE 14 U/L (12-78); ALKALINE PHOSPHATASE 69 U/L (46-116); ASPARTATE AMINOTRANSFERASE 24 U/L (15-37); BILIRUBIN,TOTAL 0.2 mg/dL (0.2-1.0); CALCIUM, SERUM 8.2 mg/dL (8.5-10.1); CARBON DIOXIDE 20 mmol/L (21-32); CHLORIDE 108 mmol/L (98-107); CREATININE 2.1 mg/dL (0.6-1.3); GLUCOSE 130 mg/dL (74-106); MAGNESIUM 1.7 mg/dL (1.8-2.4); PHOSPHORUS 4.4 mg/dL (2.5-4.9); POTASSIUM 5.2 mmol/L (3.5-5.1); SODIUM SERUM 140 mmol/L (136-145); TOTAL PROTEIN, SERUM 8.4 g/dL (6.4-8.2); UREA NITROGEN, BLOOD 71 mg/dL (7-18)
[2021-04-06 13:02] LABS: BILIRUBIN,URINE NEGATIVE (NEGATIVE); LEUKOCYTE ESTERASE ,URINE MODERATE (NEGATIVE); NITRITE, URINE POSITIVE (NEGATIVE); PH,URINE 5.5 (5.0-8.0); PROTEIN,URINE 30 mg/dl (NEGATIVE); UGLUCOSE >=1000 mg/dL (NEGATIVE); UROBILINOGEN,URINE 0.2 EU/dL (0.2)
[2021-04-06 13:05] LABS: COLOR,URINE STRAW (YELLOW)
[2021-04-06 13:41] LABS: BACTERIA,URINE Many /HPF (None Seen); RBC,URINE F /HPF (0-2); SQUAMOUS EPITHELIAL CELL,UR Few /HPF (None Seen); WBC,URINE TOO NUMEROUS TO COUN /HPF (0-3)
== END 2021-04-05 23:59 | disposition home or self-care (01) ==
LOC: LAB 08:10
PROVIDERS: ATTEND Internal Medicine
DX: I12.9 Hypertensive chronic kidney disease with stage 1 through stage 4 chronic kidney disease, or unspecified chronic kidney disease (principal); E11.22 Type 2 diabetes mellitus with diabetic chronic kidney disease; N18.9 Chronic kidney disease, unspecified; E78.5 Hyperlipidemia, unspecified; Z79.899 Other long term (current) drug therapy
CPT/HCPCS: 36415; 80053-TC; 82306; 83735-TC; 84100-TC; 85025-TC

== ENCOUNTER 2021-04-08 10:34 | Outpatient (CLI) | payer MEDICARE, OTHER | END 2021-04-08 23:59 | disposition home or self-care (01) | LOC: MSC 10:34 | PROVIDERS: ATTEND Internal Medicine | DX: N39.0 Urinary tract infection, site not specified (principal); R22.43 Localized swelling, mass and lump, lower limb, bilateral; E11.22 Type 2 diabetes mellitus with diabetic chronic kidney disease; I12.9 Hypertensive chronic kidney disease with stage 1 through stage 4 chronic kidney disease, or unspecified chronic kidney disease; N18.31 Chronic kidney disease, stage 3a; Z79.84 Long term (current) use of oral hypoglycemic drugs; G62.9 Polyneuropathy, unspecified; E78.5 Hyperlipidemia, unspecified; K21.9 Gastro-esophageal reflux disease without esophagitis; G47.00 Insomnia, unspecified; M25.569 Pain in unspecified knee; E66.9 Obesity, unspecified; Z79.899 Other long term (current) drug therapy ==

== ENCOUNTER 2021-04-16 14:21 | Outpatient (CLI) | payer MEDICARE, OTHER ==
[2021-04-16 14:39] LABS: BILIRUBIN,URINE NEGATIVE (NEGATIVE); COLOR,URINE YELLOW (YELLOW); LEUKOCYTE ESTERASE ,URINE MODERATE (NEGATIVE); NITRITE, URINE POSITIVE (NEGATIVE); PH,URINE 5.5 (5.0-8.0); PROTEIN,URINE 30 mg/dl (NEGATIVE); UGLUCOSE >=1000 mg/dL (NEGATIVE); UROBILINOGEN,URINE 0.2 EU/dL (0.2)
[2021-04-16 16:10] LABS: BACTERIA,URINE 4+ /HPF (None Seen); WBC,URINE 51-80 /HPF (0-3)
== END 2021-04-16 23:59 | disposition home or self-care (01) ==
LOC: LAB 14:21
PROVIDERS: ATTEND Internal Medicine
DX: N39.0 Urinary tract infection, site not specified (principal)
CPT/HCPCS: 81001; 87086-TC

== ENCOUNTER 2021-04-22 10:34 | Outpatient (CLI) | payer MEDICARE, OTHER ==
[2021-04-22 11:55] LABS: ALANINE AMINOTRANSFERASE 18 U/L (12-78); ALBUMIN 3.1 g/dL (3.4-5.0); ALKALINE PHOSPHATASE 77 U/L (46-116); ASPARTATE AMINOTRANSFERASE 19 U/L (15-37); BILIRUBIN,TOTAL 0.2 mg/dL (0.2-1.0); CALCIUM, SERUM 8.4 mg/dL (8.5-10.1); CARBON DIOXIDE 20 mmol/L (21-32); CHLORIDE 109 mmol/L (98-107); CREATININE 2.2 mg/dL (0.6-1.3); GLUCOSE 133 mg/dL (74-106); MAGNESIUM 1.9 mg/dL (1.8-2.4); PHOSPHORUS 4.4 mg/dL (2.5-4.9); POTASSIUM 5.6 mmol/L (3.5-5.1); SODIUM SERUM 140 mmol/L (136-145); TOTAL PROTEIN, SERUM 8.4 g/dL (6.4-8.2); UREA NITROGEN, BLOOD 76 mg/dL (7-18)
[2021-04-22 12:02] LABS: FREE T4 (FREE THYROXINE) 0.83 ng/dL (0.76-1.46)
[2021-04-22 12:03] LABS: C-REACTIVE PROTEIN < 0.2 mg/dL (0.0-0.9)
[2021-04-22 12:24] LABS: BASOPHILS # (AUTO) 0.1 K/uL (0.0-0.2); EOSINOPHILS % (AUTO) 2.4 % (0.0-6.0); HEMATOCRIT 27 % (33-45); HEMOGLOBIN 8.3 g/dL (11.5-14.8); LYMPHOCYTES # (AUTO) 1.8 K/uL (0.8-4.8); LYMPHOCYTES % (AUTO) 23.2 % (20.0-44.0); MEAN CORPUSCULAR HGB CONC 31 g/dl (31.0-36.0); MEAN CORPUSCULAR VOLUME 78 fL (82-100); MONOCYTES # (AUTO) 0.6 K/uL (0.1-1.30); MONOCYTES % (AUTO) 7.4 % (2.0-12.0); NEUTROPHILS # (AUTO) 5.3 K/uL (1.8-8.9); PLATELET COUNT (AUTO) 295 K/uL (150-450); RED BLOOD CELL COUNT(AUTO) 3.49 MIL/uL (4.0-5.2)
[2021-04-23 14:28] LABS: BILIRUBIN,URINE NEGATIVE (NEGATIVE); COLOR,URINE YELLOW (YELLOW); LEUKOCYTE ESTERASE ,URINE MODERATE (NEGATIVE); NITRITE, URINE POSITIVE (NEGATIVE); PROTEIN,URINE 30 mg/dl (NEGATIVE); UGLUCOSE >=1000 mg/dL (NEGATIVE); UROBILINOGEN,URINE 0.2 EU/dL (0.2)
[2021-04-23 14:53] LABS: BACTERIA,URINE 4+ /HPF (None Seen); SQUAMOUS EPITHELIAL CELL,UR Few /HPF (None Seen); WBC,URINE TOO NUMEROUS TO COUN /HPF (0-3)
[2021-04-23 14:54] LABS: YEAST,URINE Few /HPF (None Seen)
== END 2021-04-22 23:59 | disposition home or self-care (01) ==
LOC: MSC 10:34
PROVIDERS: ATTEND Internal Medicine
DX: N39.0 Urinary tract infection, site not specified (principal); R60.0 Localized edema; E11.22 Type 2 diabetes mellitus with diabetic chronic kidney disease; E11.65 Type 2 diabetes mellitus with hyperglycemia; I12.9 Hypertensive chronic kidney disease with stage 1 through stage 4 chronic kidney disease, or unspecified chronic kidney disease; N18.31 Chronic kidney disease, stage 3a; Z79.84 Long term (current) use of oral hypoglycemic drugs; G62.9 Polyneuropathy, unspecified; L29.9 Pruritus, unspecified; E78.5 Hyperlipidemia, unspecified; K21.9 Gastro-esophageal reflux disease without esophagitis; G47.00 Insomnia, unspecified; M25.569 Pain in unspecified knee; E66.9 Obesity, unspecified; Z79.899 Other long term (current) drug therapy
CPT/HCPCS: 36415; 80053; 83036; 83735; 84100; 84439; 85025; 85652; 86140; G0463

== ENCOUNTER 2021-04-29 10:45 | Outpatient (CLI) | payer MEDICARE, OTHER | END 2021-04-29 23:59 | disposition home or self-care (01) | LOC: MSC 10:45 | PROVIDERS: ATTEND Internal Medicine | DX: N39.0 Urinary tract infection, site not specified (principal); R60.0 Localized edema; E11.22 Type 2 diabetes mellitus with diabetic chronic kidney disease; E11.65 Type 2 diabetes mellitus with hyperglycemia; I12.9 Hypertensive chronic kidney disease with stage 1 through stage 4 chronic kidney disease, or unspecified chronic kidney disease; N18.31 Chronic kidney disease, stage 3a; Z79.84 Long term (current) use of oral hypoglycemic drugs; G62.9 Polyneuropathy, unspecified; L29.9 Pruritus, unspecified; E78.5 Hyperlipidemia, unspecified; K21.9 Gastro-esophageal reflux disease without esophagitis; G47.00 Insomnia, unspecified; M25.569 Pain in unspecified knee; E66.9 Obesity, unspecified ==

== ENCOUNTER 2021-05-06 10:37 | Outpatient (CLI) | payer MEDICARE, OTHER | END 2021-05-06 23:59 | disposition home or self-care (01) | LOC: MSC 10:37 | PROVIDERS: ATTEND Internal Medicine | DX: E11.42 Type 2 diabetes mellitus with diabetic polyneuropathy (principal); Z79.84 Long term (current) use of oral hypoglycemic drugs; E87.5 Hyperkalemia; R60.9 Edema, unspecified; E11.22 Type 2 diabetes mellitus with diabetic chronic kidney disease; I12.9 Hypertensive chronic kidney disease with stage 1 through stage 4 chronic kidney disease, or unspecified chronic kidney disease; N18.31 Chronic kidney disease, stage 3a; E78.5 Hyperlipidemia, unspecified; K21.9 Gastro-esophageal reflux disease without esophagitis; G47.00 Insomnia, unspecified; M25.569 Pain in unspecified knee; E66.9 Obesity, unspecified; Z68.35 Body mass index [BMI] 35.0-35.9, adult; Z79.899 Other long term (current) drug therapy ==

== ENCOUNTER 2021-06-07 09:12 | Outpatient (CLI) | payer MEDICARE, OTHER ==
[2021-06-07 09:57] LABS: BASOPHILS # (AUTO) 0.1 K/uL (0.0-0.2); BASOPHILS % (AUTO) 0.8 % (0.0-2.0); HEMATOCRIT 27 % (33-45); HEMOGLOBIN 8.3 g/dL (11.5-14.8); LYMPHOCYTES # (AUTO) 1.8 K/uL (0.8-4.8); LYMPHOCYTES % (AUTO) 23.2 % (20.0-44.0); MEAN CORPUSCULAR HGB CONC 31 g/dl (31.0-36.0); MEAN CORPUSCULAR VOLUME 80 fL (82-100); MONOCYTES # (AUTO) 0.5 K/uL (0.1-1.30); MONOCYTES % (AUTO) 6.1 % (2.0-12.0); NEUTROPHILS # (AUTO) 5.2 K/uL (1.8-8.9); NEUTROPHILS % (AUTO) 66.9 % (43.0-81.0); PLATELET COUNT (AUTO) 223 K/uL (150-450); RED BLOOD CELL COUNT(AUTO) 3.33 MIL/uL (4.0-5.2); WHITE BLOOD COUNT (AUTO) 7.8 K/uL (4.3-11.0)
[2021-06-07 10:08] LABS: C-REACTIVE PROTEIN 0.2 mg/dL (0.0-0.9); CHOLESTEROL 119 mg/dL (<200); HDL CHOLESTEROL 51 mg/dL (40-60); LDL 49 mg/dL (0-99); TRIGLYCERIDES 90 mg/dL (30-150)
[2021-06-07 10:09] LABS: ALANINE AMINOTRANSFERASE 15 U/L (12-78); ALBUMIN 3.2 g/dL (3.4-5.0); ALKALINE PHOSPHATASE 66 U/L (46-116); ASPARTATE AMINOTRANSFERASE 17 U/L (15-37); BILIRUBIN,TOTAL 0.2 mg/dL (0.2-1.0); CALCIUM, SERUM 8.2 mg/dL (8.5-10.1); CARBON DIOXIDE 16 mmol/L (21-32); CHLORIDE 112 mmol/L (98-107); CREATININE 2.8 mg/dL (0.6-1.3); GLUCOSE 118 mg/dL (74-106); MAGNESIUM 2.2 mg/dL (1.8-2.4); PHOSPHORUS 5.6 mg/dL (2.5-4.9); POTASSIUM 6.1 mmol/L (3.5-5.1); SODIUM SERUM 141 mmol/L (136-145); TOTAL PROTEIN, SERUM 8.4 g/dL (6.4-8.2)
[2021-06-07 10:14] LABS: UREA NITROGEN, BLOOD 99 mg/dL (7-18)
== END 2021-06-07 23:59 | disposition home or self-care (01) ==
LOC: LAB 09:12
PROVIDERS: ATTEND Internal Medicine
DX: I12.9 Hypertensive chronic kidney disease with stage 1 through stage 4 chronic kidney disease, or unspecified chronic kidney disease (principal); E11.22 Type 2 diabetes mellitus with diabetic chronic kidney disease; N18.9 Chronic kidney disease, unspecified
CPT/HCPCS: 36415; 80053-TC; 80061-TC; 83735-TC; 84100-TC; 85025-TC; 85652-TC; 86140-TC

== ENCOUNTER 2021-06-08 09:44 | Outpatient (CLI) | payer MEDICARE, OTHER ==
[2021-06-08 11:54] LABS: BILIRUBIN,URINE NEGATIVE (NEGATIVE); COLOR,URINE YELLOW (YELLOW); LEUKOCYTE ESTERASE ,URINE LARGE (NEGATIVE); NITRITE, URINE POSITIVE (NEGATIVE); PROTEIN,URINE TRACE mg/dl (NEGATIVE); UGLUCOSE 250 MG/DL mg/dL (NEGATIVE); UROBILINOGEN,URINE 0.2 EU/dL (0.2)
[2021-06-08 11:59] LABS: BACTERIA,URINE 2+ /HPF (None Seen); SQUAMOUS EPITHELIAL CELL,UR Moderate /HPF (None Seen); WBC,URINE 21-50 /HPF (0-3)
== END 2021-06-08 23:59 | disposition home or self-care (01) ==
LOC: LAB 09:44
PROVIDERS: ATTEND Internal Medicine
DX: E11.22 Type 2 diabetes mellitus with diabetic chronic kidney disease (principal); N18.30 Chronic kidney disease, stage 3 unspecified
CPT/HCPCS: 81001; 87086-TC

== ENCOUNTER 2021-06-08 09:45 | Outpatient (CLI) | payer MEDICARE, OTHER | END 2021-06-08 23:59 | disposition home health service (06) | LOC: WOU 09:45 | PROVIDERS: ATTEND Podiatrist Foot & Ankle Surgery | DX: Z09 Encounter for follow-up examination after completed treatment for conditions other than malignant neoplasm (principal); Z86.31 Personal history of diabetic foot ulcer; M20.12 Hallux valgus (acquired), left foot; B35.1 Tinea unguium; E11.40 Type 2 diabetes mellitus with diabetic neuropathy, unspecified; L60.2 Onychogryphosis; E89.0 Postprocedural hypothyroidism; Z85.3 Personal history of malignant neoplasm of breast; Z90.13 Acquired absence of bilateral breasts and nipples; Z79.84 Long term (current) use of oral hypoglycemic drugs | CPT/HCPCS: 87102; G0463 ==

== ENCOUNTER 2021-06-10 09:35 | Outpatient (CLI) | payer MEDICARE, OTHER | END 2021-06-10 23:59 | disposition home or self-care (01) | LOC: MSC 09:35 | PROVIDERS: ATTEND Internal Medicine | DX: N39.0 Urinary tract infection, site not specified (principal); M54.89 Other dorsalgia; E11.22 Type 2 diabetes mellitus with diabetic chronic kidney disease; I12.9 Hypertensive chronic kidney disease with stage 1 through stage 4 chronic kidney disease, or unspecified chronic kidney disease; N18.31 Chronic kidney disease, stage 3a; N17.9 Acute kidney failure, unspecified; Z79.84 Long term (current) use of oral hypoglycemic drugs; E87.5 Hyperkalemia; R60.0 Localized edema; G62.9 Polyneuropathy, unspecified; E78.5 Hyperlipidemia, unspecified; K21.9 Gastro-esophageal reflux disease without esophagitis; G47.00 Insomnia, unspecified; M25.569 Pain in unspecified knee; Z99.89 Dependence on other enabling machines and devices; Z79.2 Long term (current) use of antibiotics; Z79.899 Other long term (current) drug therapy ==

== ENCOUNTER 2021-09-10 10:30 | Outpatient (CLI) | payer MEDICARE, OTHER ==
[2021-09-10] MEDS ORDERED: LIDOCAINE 2% 20 ML MDV ONE (10:59)
[2021-09-10] MEDS ORDERED: ETHYL CHLORIDE SPRAY 1 EA BOTTLE TP ONE (12:00)
== END 2021-09-10 23:59 | disposition home health service (06) ==
LOC: WOU 10:30
PROVIDERS: ATTEND Podiatrist Foot & Ankle Surgery
DX: Z09 Encounter for follow-up examination after completed treatment for conditions other than malignant neoplasm (principal); L60.2 Onychogryphosis; E11.40 Type 2 diabetes mellitus with diabetic neuropathy, unspecified; I89.0 Lymphedema, not elsewhere classified; R60.0 Localized edema; B35.1 Tinea unguium; M79.675 Pain in left toe(s); Z86.31 Personal history of diabetic foot ulcer; Z79.84 Long term (current) use of oral hypoglycemic drugs; Z79.899 Other long term (current) drug therapy
CPT/HCPCS: 11730; J3490

== ENCOUNTER 2021-09-15 09:25 | Outpatient (CLI) | payer MEDICARE, OTHER ==
[2021-09-15 10:40] LABS: BASOPHILS # (AUTO) 0.1 K/uL (0.0-0.2); BASOPHILS % (AUTO) 0.7 % (0.0-2.0); EOSINOPHILS % (AUTO) 1.5 % (0.0-6.0); HEMATOCRIT 26 % (33-45); HEMOGLOBIN 8.2 g/dL (11.5-14.8); LYMPHOCYTES # (AUTO) 1.3 K/uL (0.8-4.8); LYMPHOCYTES % (AUTO) 15.8 % (20.0-44.0); MEAN CORPUSCULAR HGB CONC 31 g/dl (31.0-36.0); MEAN CORPUSCULAR VOLUME 80 fL (82-100); MONOCYTES # (AUTO) 0.5 K/uL (0.1-1.30); MONOCYTES % (AUTO) 6.6 % (2.0-12.0); NEUTROPHILS # (AUTO) 6.2 K/uL (1.8-8.9); NEUTROPHILS % (AUTO) 75.4 % (43.0-81.0); PLATELET COUNT (AUTO) 288 K/uL (150-450); RED BLOOD CELL COUNT(AUTO) 3.27 MIL/uL (4.0-5.2); WHITE BLOOD COUNT (AUTO) 8.2 K/uL (4.3-11.0)
[2021-09-15 10:56] LABS: ALANINE AMINOTRANSFERASE 21 U/L (12-78); ALBUMIN 2.9 g/dL (3.4-5.0); ALKALINE PHOSPHATASE 74 U/L (46-116); ASPARTATE AMINOTRANSFERASE 23 U/L (15-37); BILIRUBIN,TOTAL 0.2 mg/dL (0.2-1.0); CALCIUM, SERUM 8.2 mg/dL (8.5-10.1); CARBON DIOXIDE 22 mmol/L (21-32); CHLORIDE 107 mmol/L (98-107); CREATININE 2.2 mg/dL (0.6-1.3); GLUCOSE 188 mg/dL (74-106); MAGNESIUM 1.8 mg/dL (1.8-2.4); PHOSPHORUS 3.9 mg/dL (2.5-4.9); POTASSIUM 4.5 mmol/L (3.5-5.1); SODIUM SERUM 138 mmol/L (136-145); UREA NITROGEN, BLOOD 76 mg/dL (7-18)
[2021-09-15 10:59] LABS: CHOLESTEROL 127 mg/dL (<200); HDL CHOLESTEROL 47 mg/dL (40-60); LDL 62 mg/dL (0-99); TRIGLYCERIDES 88 mg/dL (30-150)
== END 2021-09-15 23:59 | disposition home or self-care (01) ==
LOC: LAB 09:25
PROVIDERS: ATTEND Internal Medicine
DX: E11.22 Type 2 diabetes mellitus with diabetic chronic kidney disease (principal); N18.30 Chronic kidney disease, stage 3 unspecified; E78.5 Hyperlipidemia, unspecified
CPT/HCPCS: 36415; 80053-TC; 80061-TC; 83735-TC; 84100-TC; 85025-TC

== ENCOUNTER 2021-09-15 09:40 | Outpatient (CLI) | payer MEDICARE, OTHER ==
[2021-09-15] MEDS ORDERED: CADEXOMER IODINE UD 5 GM TUBE ONE (10:30)
== END 2021-09-15 23:59 | disposition home health service (06) ==
LOC: WOU 09:40
PROVIDERS: ATTEND Specialist
DX: E11.40 Type 2 diabetes mellitus with diabetic neuropathy, unspecified (principal); Z79.84 Long term (current) use of oral hypoglycemic drugs; M86.172 Other acute osteomyelitis, left ankle and foot; B35.1 Tinea unguium; L60.2 Onychogryphosis; R60.0 Localized edema; M79.675 Pain in left toe(s); Z79.899 Other long term (current) drug therapy
CPT/HCPCS: G0463

== ENCOUNTER 2021-09-21 10:21 | Outpatient (CLI) | payer MEDICARE, OTHER | END 2021-09-21 23:59 | disposition home or self-care (01) | LOC: MSC 10:21 | PROVIDERS: ATTEND Internal Medicine | DX: R60.0 Localized edema (principal); E11.22 Type 2 diabetes mellitus with diabetic chronic kidney disease; I12.9 Hypertensive chronic kidney disease with stage 1 through stage 4 chronic kidney disease, or unspecified chronic kidney disease; N18.31 Chronic kidney disease, stage 3a; N17.9 Acute kidney failure, unspecified; Z79.84 Long term (current) use of oral hypoglycemic drugs; G47.00 Insomnia, unspecified; G62.9 Polyneuropathy, unspecified; E87.5 Hyperkalemia; R32 Unspecified urinary incontinence; E78.5 Hyperlipidemia, unspecified; K21.9 Gastro-esophageal reflux disease without esophagitis; M25.569 Pain in unspecified knee; E66.9 Obesity, unspecified; Z79.899 Other long term (current) drug therapy ==

== ENCOUNTER 2021-09-24 10:25 | Outpatient (CLI) | payer MEDICARE, OTHER | END 2021-09-24 23:59 | disposition home health service (06) | LOC: WOU 10:25 | PROVIDERS: ATTEND Podiatrist Foot & Ankle Surgery | DX: L60.2 Onychogryphosis (principal); E11.42 Type 2 diabetes mellitus with diabetic polyneuropathy; B35.1 Tinea unguium; R60.0 Localized edema; I89.0 Lymphedema, not elsewhere classified; M79.675 Pain in left toe(s); Z87.39 Personal history of other diseases of the musculoskeletal system and connective tissue; Z79.84 Long term (current) use of oral hypoglycemic drugs; Z79.899 Other long term (current) drug therapy | CPT/HCPCS: G0463 ==

== ENCOUNTER 2023-01-19 10:57 | Outpatient (CLI) | payer MEDICARE, OTHER ==
[2023-01-19 12:24] LABS: BASOPHILS % (AUTO) 0.4 % (0.0-2.0); EOSINOPHILS % (AUTO) 0.8 % (0.0-6.0); HEMATOCRIT 27 % (33-45); HEMOGLOBIN 8.4 g/dL (11.5-14.8); LYMPHOCYTES # (AUTO) 1.9 K/uL (0.8-4.8); LYMPHOCYTES % (AUTO) 19.8 % (20.0-44.0); MEAN CORPUSCULAR HGB CONC 31 g/dl (31.0-36.0); MEAN CORPUSCULAR VOLUME 79 fL (82-100); MONOCYTES # (AUTO) 0.4 K/uL (0.1-1.30); MONOCYTES % (AUTO) 4.4 % (2.0-12.0); NEUTROPHILS # (AUTO) 7.3 K/uL (1.8-8.9); NEUTROPHILS % (AUTO) 74.6 % (43.0-81.0); PLATELET COUNT (AUTO) 268 K/uL (150-450); RED BLOOD CELL COUNT(AUTO) 3.42 MIL/uL (4.0-5.2); WHITE BLOOD COUNT (AUTO) 9.8 K/uL (4.3-11.0)
[2023-01-19 13:14] LABS: BILIRUBIN,URINE NEGATIVE (NEGATIVE); COLOR,URINE YELLOW (YELLOW); LEUKOCYTE ESTERASE ,URINE 2+ (NEGATIVE); NITRITE, URINE POSITIVE (NEGATIVE); PH,URINE 5.5 (5.0-8.0); PROTEIN,URINE 2+ mg/dl (NEGATIVE); UGLUCOSE 2+ mg/dL (NEGATIVE); UROBILINOGEN,URINE 0.2 EU/dL (0.2)
[2023-01-19 13:30] LABS: BACTERIA,URINE Many /HPF (None Seen); WBC,URINE 21-50 /HPF (0-3)
[2023-01-19 13:31] LABS: SQUAMOUS EPITHELIAL CELL,UR Rare /HPF (None Seen)
[2023-01-19 15:27] LABS: IRON, SERUM 20 ug/dl (50-175); TOTAL IRON BINDING CAPACITY 318 ug/dl (250-450)
[2023-01-19 15:43] LABS: CREATININE, URINE 42.1 MG/DL (30.0-125.0); URINE TOTAL PROTEIN 176.2 mg/dL (0-11.9)
[2023-01-19 16:21] LABS: CARBON DIOXIDE 24 mmol/L (21-32); CHLORIDE 105 mmol/L (98-107); GLUCOSE 292 mg/dL (74-106); POTASSIUM 5.2 mmol/L (3.5-5.1); SODIUM SERUM 136 mmol/L (136-145); UREA NITROGEN, BLOOD 81 mg/dL (7-18)
[2023-01-19 16:22] LABS: ALANINE AMINOTRANSFERASE 14 U/L (12-78); ALKALINE PHOSPHATASE 98 U/L (46-116); ASPARTATE AMINOTRANSFERASE 16 U/L (15-37); BILIRUBIN,TOTAL 0.1 mg/dL (0.2-1.0); CREATININE 2.5 mg/dL (0.6-1.3); PHOSPHORUS 4.4 mg/dL (2.5-4.9)
[2023-01-19 16:23] LABS: MAGNESIUM 1.8 mg/dL (1.8-2.4); TOTAL PROTEIN, SERUM 7.8 g/dL (6.4-8.2)
[2023-01-19 17:02] LABS: C-REACTIVE PROTEIN 0.2 mg/dL (0.0-0.9); CHOLESTEROL 158 mg/dL (<200); FERRITIN 10 ng/mL (8-388); HDL CHOLESTEROL 58 mg/dL (40-60); LDL 80 mg/dL (0-99); THYROID STIMULATING HORMONE 2.183 uIU/mL (0.358-3.74); TRIGLYCERIDES 129 mg/dL (30-150)
== END 2023-01-19 23:59 | disposition home or self-care (01) ==
LOC: MSC 10:57
PROVIDERS: ATTEND Internal Medicine
DX: E11.22 Type 2 diabetes mellitus with diabetic chronic kidney disease (principal); I12.9 Hypertensive chronic kidney disease with stage 1 through stage 4 chronic kidney disease, or unspecified chronic kidney disease; N18.30 Chronic kidney disease, stage 3 unspecified; Z79.84 Long term (current) use of oral hypoglycemic drugs; E11.42 Type 2 diabetes mellitus with diabetic polyneuropathy; R60.0 Localized edema; Z87.440 Personal history of urinary (tract) infections; E78.5 Hyperlipidemia, unspecified; K21.9 Gastro-esophageal reflux disease without esophagitis; G47.00 Insomnia, unspecified; M25.569 Pain in unspecified knee; E66.9 Obesity, unspecified
CPT/HCPCS: 80061; 85025; 82570; 83540; 83735; 83036; 84100; 85652; 81001; 36415; 84439; 82746; 84443; 82607; 80053; 82728; 86140; 82306; 83970; 84155; G0463

== ENCOUNTER 2023-01-25 12:59 | Outpatient (CLI) | payer MEDICARE, OTHER | END 2023-01-25 23:59 | disposition home or self-care (01) | LOC: LAB 12:59 | PROVIDERS: ATTEND Internal Medicine | DX: I10 Essential (primary) hypertension (principal); E11.9 Type 2 diabetes mellitus without complications; Z79.899 Other long term (current) drug therapy | CPT/HCPCS: 36415; 87086-TC ==

== ENCOUNTER 2023-01-26 11:00 | Outpatient (CLI) | payer MEDICARE, OTHER | END 2023-01-26 23:59 | disposition home or self-care (01) | LOC: MSC 11:00 | PROVIDERS: ATTEND Internal Medicine | DX: E11.22 Type 2 diabetes mellitus with diabetic chronic kidney disease (principal); I12.9 Hypertensive chronic kidney disease with stage 1 through stage 4 chronic kidney disease, or unspecified chronic kidney disease; N18.30 Chronic kidney disease, stage 3 unspecified; Z79.84 Long term (current) use of oral hypoglycemic drugs; D50.9 Iron deficiency anemia, unspecified; N39.0 Urinary tract infection, site not specified; E11.42 Type 2 diabetes mellitus with diabetic polyneuropathy; R60.0 Localized edema; E78.5 Hyperlipidemia, unspecified; G47.00 Insomnia, unspecified; E66.9 Obesity, unspecified ==

== ENCOUNTER 2023-01-31 10:29 | Outpatient (CLI) | payer MEDICARE, OTHER | END 2023-01-31 23:59 | disposition home health service (06) | LOC: WOU 10:29 | PROVIDERS: ATTEND Podiatrist Foot & Ankle Surgery | DX: B35.1 Tinea unguium (principal); E11.40 Type 2 diabetes mellitus with diabetic neuropathy, unspecified; I89.0 Lymphedema, not elsewhere classified; L60.2 Onychogryphosis; M79.672 Pain in left foot; M79.675 Pain in left toe(s); R60.0 Localized edema; Z79.84 Long term (current) use of oral hypoglycemic drugs; Z79.899 Other long term (current) drug therapy | CPT/HCPCS: G0463 ==

== ENCOUNTER 2023-02-09 10:09 | Outpatient (CLI) | payer MEDICARE, OTHER ==
[2023-02-09 12:26] LABS: BILIRUBIN,URINE NEGATIVE (NEGATIVE); COLOR,URINE YELLOW (YELLOW); LEUKOCYTE ESTERASE ,URINE 1+ (NEGATIVE); NITRITE, URINE NEGATIVE (NEGATIVE); PH,URINE 6.5 (5.0-8.0); PROTEIN,URINE 2+ mg/dl (NEGATIVE); UGLUCOSE NEGATIVE (NEGATIVE); UROBILINOGEN,URINE 0.2 EU/dL (0.2)
[2023-02-09 12:28] LABS: BACTERIA,URINE Moderate /HPF (None Seen); WBC,URINE TOO NUMEROUS TO COUN /HPF (0-3)
[2023-02-09 12:29] LABS: SQUAMOUS EPITHELIAL CELL,UR Few /HPF (None Seen)
[2023-02-09 12:40] LABS: BASOPHILS % (AUTO) 0.5 % (0.0-2.0); EOSINOPHILS % (AUTO) 0.7 % (0.0-6.0); HEMATOCRIT 27 % (33-45); HEMOGLOBIN 8.5 g/dL (11.5-14.8); LYMPHOCYTES # (AUTO) 1.8 K/uL (0.8-4.8); LYMPHOCYTES % (AUTO) 23.2 % (20.0-44.0); MEAN CORPUSCULAR HGB CONC 32 g/dl (31.0-36.0); MEAN CORPUSCULAR VOLUME 79 fL (82-100); MONOCYTES # (AUTO) 0.4 K/uL (0.1-1.30); MONOCYTES % (AUTO) 5.7 % (2.0-12.0); NEUTROPHILS # (AUTO) 5.5 K/uL (1.8-8.9); NEUTROPHILS % (AUTO) 69.9 % (43.0-81.0); PLATELET COUNT (AUTO) 290 K/uL (150-450); RED BLOOD CELL COUNT(AUTO) 3.35 MIL/uL (4.0-5.2); WHITE BLOOD COUNT (AUTO) 7.9 K/uL (4.3-11.0)
[2023-02-09 12:43] LABS: ALANINE AMINOTRANSFERASE 15 U/L (12-78); ALBUMIN 3.2 g/dL (3.4-5.0); ALKALINE PHOSPHATASE 69 U/L (46-116); ASPARTATE AMINOTRANSFERASE 24 U/L (15-37); BILIRUBIN,TOTAL 0.1 mg/dL (0.2-1.0); CALCIUM, SERUM 9.1 mg/dL (8.5-10.1); CARBON DIOXIDE 18 mmol/L (21-32); CHLORIDE 110 mmol/L (98-107); CREATININE 2.7 mg/dL (0.6-1.3); GLUCOSE 99 mg/dL (74-106); MAGNESIUM 1.9 mg/dL (1.8-2.4); PHOSPHORUS 5.5 mg/dL (2.5-4.9); SODIUM SERUM 141 mmol/L (136-145)
[2023-02-09 12:44] LABS: UREA NITROGEN, BLOOD 112 mg/dL (7-18)
== END 2023-02-09 23:59 | disposition home or self-care (01) ==
LOC: MSC 10:09
PROVIDERS: ATTEND Internal Medicine
DX: E11.22 Type 2 diabetes mellitus with diabetic chronic kidney disease (principal); E11.65 Type 2 diabetes mellitus with hyperglycemia; I12.9 Hypertensive chronic kidney disease with stage 1 through stage 4 chronic kidney disease, or unspecified chronic kidney disease; N18.30 Chronic kidney disease, stage 3 unspecified; Z79.84 Long term (current) use of oral hypoglycemic drugs; Z79.85 Long-term (current) use of injectable non-insulin antidiabetic drugs; E11.42 Type 2 diabetes mellitus with diabetic polyneuropathy; R60.0 Localized edema; E78.5 Hyperlipidemia, unspecified; G47.00 Insomnia, unspecified; E66.9 Obesity, unspecified; Z87.440 Personal history of urinary (tract) infections
CPT/HCPCS: 85025; 87086; 83735; 83036; 84100; 81001; 36415; 80053; 82962; G0463

== ENCOUNTER 2023-02-14 11:30 | Outpatient (CLI) | payer MEDICARE, OTHER | END 2023-02-14 23:59 | disposition home or self-care (01) | LOC: MSC 11:30 | PROVIDERS: ATTEND Internal Medicine | DX: E11.22 Type 2 diabetes mellitus with diabetic chronic kidney disease (principal); E11.65 Type 2 diabetes mellitus with hyperglycemia; I12.9 Hypertensive chronic kidney disease with stage 1 through stage 4 chronic kidney disease, or unspecified chronic kidney disease; N18.4 Chronic kidney disease, stage 4 (severe); Z79.85 Long-term (current) use of injectable non-insulin antidiabetic drugs; Z79.84 Long term (current) use of oral hypoglycemic drugs; N39.0 Urinary tract infection, site not specified; D50.9 Iron deficiency anemia, unspecified; E87.20 Acidosis, unspecified; E83.9 Disorder of mineral metabolism, unspecified; M89.9 Disorder of bone, unspecified; E11.42 Type 2 diabetes mellitus with diabetic polyneuropathy; R60.0 Localized edema; E78.5 Hyperlipidemia, unspecified; G47.00 Insomnia, unspecified; E66.9 Obesity, unspecified ==

== ENCOUNTER 2023-02-23 10:40 | Outpatient (CLI) | payer MEDICARE, OTHER ==
[2023-02-23 12:46] LABS: BASOPHILS # (AUTO) 0.1 K/uL (0.0-0.2); BASOPHILS % (AUTO) 0.8 % (0.0-2.0); EOSINOPHILS % (AUTO) 0.9 % (0.0-6.0); HEMATOCRIT 27 % (33-45); HEMOGLOBIN 8.7 g/dL (11.5-14.8); LYMPHOCYTES % (AUTO) 23.5 % (20.0-44.0); MEAN CORPUSCULAR HGB CONC 32 g/dl (31.0-36.0); MEAN CORPUSCULAR VOLUME 80 fL (82-100); MONOCYTES # (AUTO) 0.5 K/uL (0.1-1.30); MONOCYTES % (AUTO) 5.4 % (2.0-12.0); NEUTROPHILS # (AUTO) 5.8 K/uL (1.8-8.9); NEUTROPHILS % (AUTO) 69.4 % (43.0-81.0); PLATELET COUNT (AUTO) 285 K/uL (150-450); RED BLOOD CELL COUNT(AUTO) 3.42 MIL/uL (4.0-5.2); WHITE BLOOD COUNT (AUTO) 8.4 K/uL (4.3-11.0)
[2023-02-23 13:18] LABS: ALANINE AMINOTRANSFERASE 20 U/L (12-78); ALBUMIN 3.2 g/dL (3.4-5.0); ALKALINE PHOSPHATASE 76 U/L (46-116); ASPARTATE AMINOTRANSFERASE 19 U/L (15-37); BILIRUBIN,TOTAL 0.1 mg/dL (0.2-1.0); CALCIUM, SERUM 9.1 mg/dL (8.5-10.1); CARBON DIOXIDE 19 mmol/L (21-32); CHLORIDE 105 mmol/L (98-107); CREATININE 2.6 mg/dL (0.6-1.3); GLUCOSE 116 mg/dL (74-106); MAGNESIUM 1.5 mg/dL (1.8-2.4); PHOSPHORUS 5.1 mg/dL (2.5-4.9); POTASSIUM 4.7 mmol/L (3.5-5.1); SODIUM SERUM 139 mmol/L (136-145); TOTAL PROTEIN, SERUM 8.3 g/dL (6.4-8.2)
[2023-02-23 13:19] LABS: UREA NITROGEN, BLOOD 98 mg/dL (7-18)
== END 2023-02-23 23:59 | disposition home or self-care (01) ==
LOC: MSC 10:40
PROVIDERS: ATTEND Internal Medicine
DX: E11.22 Type 2 diabetes mellitus with diabetic chronic kidney disease (principal); E11.65 Type 2 diabetes mellitus with hyperglycemia; I12.9 Hypertensive chronic kidney disease with stage 1 through stage 4 chronic kidney disease, or unspecified chronic kidney disease; N18.4 Chronic kidney disease, stage 4 (severe); Z79.85 Long-term (current) use of injectable non-insulin antidiabetic drugs; Z79.84 Long term (current) use of oral hypoglycemic drugs; E11.42 Type 2 diabetes mellitus with diabetic polyneuropathy; K59.00 Constipation, unspecified; N39.0 Urinary tract infection, site not specified; D50.9 Iron deficiency anemia, unspecified; E87.20 Acidosis, unspecified; E83.9 Disorder of mineral metabolism, unspecified; M89.9 Disorder of bone, unspecified; R60.0 Localized edema; E78.5 Hyperlipidemia, unspecified; G47.00 Insomnia, unspecified; E66.9 Obesity, unspecified
CPT/HCPCS: 85025; 83735; 83036; 84100; 36415; 80053; 82306; 83970; G0463

== ENCOUNTER 2023-02-24 11:12 | Outpatient (CLI) | payer MEDICARE, OTHER | END 2023-02-24 23:59 | disposition home or self-care (01) | LOC: XR 11:12 | PROVIDERS: ATTEND Internal Medicine | DX: M50.323 Other cervical disc degeneration at C6-C7 level (principal) | CPT/HCPCS: 72040-TC ==

== ENCOUNTER 2023-03-02 11:00 | Outpatient (CLI) | payer MEDICARE, OTHER | END 2023-03-02 23:59 | disposition home or self-care (01) | LOC: MSC 11:00 | PROVIDERS: ATTEND Internal Medicine | DX: E11.22 Type 2 diabetes mellitus with diabetic chronic kidney disease (principal); E11.65 Type 2 diabetes mellitus with hyperglycemia; I12.9 Hypertensive chronic kidney disease with stage 1 through stage 4 chronic kidney disease, or unspecified chronic kidney disease; N18.4 Chronic kidney disease, stage 4 (severe); Z79.84 Long term (current) use of oral hypoglycemic drugs; E11.42 Type 2 diabetes mellitus with diabetic polyneuropathy; K59.00 Constipation, unspecified; M47.812 Spondylosis without myelopathy or radiculopathy, cervical region; N39.0 Urinary tract infection, site not specified; D50.9 Iron deficiency anemia, unspecified; E87.20 Acidosis, unspecified; E83.9 Disorder of mineral metabolism, unspecified; M89.9 Disorder of bone, unspecified; R60.0 Localized edema; E78.5 Hyperlipidemia, unspecified; G47.00 Insomnia, unspecified; E66.9 Obesity, unspecified ==

== ENCOUNTER 2023-03-09 11:29 | Outpatient (CLI) | payer MEDICARE, OTHER ==
[2023-03-09 11:59] LABS: EOSINOPHILS % (AUTO) 1.5 % (0.0-6.0); HEMATOCRIT 28 % (33-45); HEMOGLOBIN 8.6 g/dL (11.5-14.8); LYMPHOCYTES # (AUTO) 2.4 K/uL (0.8-4.8); LYMPHOCYTES % (AUTO) 24.3 % (20.0-44.0); MEAN CORPUSCULAR HGB CONC 31 g/dl (31.0-36.0); MEAN CORPUSCULAR VOLUME 81 fL (82-100); MONOCYTES # (AUTO) 0.8 K/uL (0.1-1.30); MONOCYTES % (AUTO) 8.2 % (2.0-12.0); NEUTROPHILS # (AUTO) 6.6 K/uL (1.8-8.9); PLATELET COUNT (AUTO) 313 K/uL (150-450); RED BLOOD CELL COUNT(AUTO) 3.45 MIL/uL (4.0-5.2)
[2023-03-09 12:28] LABS: ALANINE AMINOTRANSFERASE 21 U/L (12-78); ALBUMIN 3.2 g/dL (3.4-5.0); ALKALINE PHOSPHATASE 70 U/L (46-116); ASPARTATE AMINOTRANSFERASE 21 U/L (15-37); BILIRUBIN,TOTAL 0.2 mg/dL (0.2-1.0); CALCIUM, SERUM 9.2 mg/dL (8.5-10.1); CARBON DIOXIDE 18 mmol/L (21-32); CHLORIDE 107 mmol/L (98-107); CREATININE 2.3 mg/dL (0.6-1.3); GLUCOSE 136 mg/dL (74-106); MAGNESIUM 1.7 mg/dL (1.8-2.4); PHOSPHORUS 5.6 mg/dL (2.5-4.9); POTASSIUM 4.9 mmol/L (3.5-5.1); SODIUM SERUM 137 mmol/L (136-145); TOTAL PROTEIN, SERUM 8.2 g/dL (6.4-8.2)
[2023-03-09 12:30] LABS: UREA NITROGEN, BLOOD 95 mg/dL (7-18)
== END 2023-03-09 23:59 | disposition home or self-care (01) ==
LOC: LAB 11:29
PROVIDERS: ATTEND Internal Medicine
DX: E11.9 Type 2 diabetes mellitus without complications (principal); E78.5 Hyperlipidemia, unspecified; K59.00 Constipation, unspecified; K21.9 Gastro-esophageal reflux disease without esophagitis
CPT/HCPCS: 36415; 80053-TC; 83735-TC; 84100-TC; 85025-TC

== ENCOUNTER 2023-03-16 10:31 | Outpatient (CLI) | payer MEDICARE, OTHER ==
[2023-03-16 12:12] LABS: BASOPHILS # (AUTO) 0.1 K/uL (0.0-0.2); BASOPHILS % (AUTO) 0.6 % (0.0-2.0); HEMATOCRIT 28 % (33-45); HEMOGLOBIN 8.7 g/dL (11.5-14.8); LYMPHOCYTES # (AUTO) 1.7 K/uL (0.8-4.8); LYMPHOCYTES % (AUTO) 19.8 % (20.0-44.0); MEAN CORPUSCULAR HGB CONC 31 g/dl (31.0-36.0); MEAN CORPUSCULAR VOLUME 81 fL (82-100); MONOCYTES # (AUTO) 0.5 K/uL (0.1-1.30); MONOCYTES % (AUTO) 5.7 % (2.0-12.0); NEUTROPHILS # (AUTO) 6.2 K/uL (1.8-8.9); NEUTROPHILS % (AUTO) 72.9 % (43.0-81.0); PLATELET COUNT (AUTO) 311 K/uL (150-450); WHITE BLOOD COUNT (AUTO) 8.5 K/uL (4.3-11.0)
[2023-03-16 12:31] LABS: ALANINE AMINOTRANSFERASE 24 U/L (12-78); ALBUMIN 3.2 g/dL (3.4-5.0); ALKALINE PHOSPHATASE 68 U/L (46-116); ASPARTATE AMINOTRANSFERASE 20 U/L (15-37); BILIRUBIN,TOTAL 0.2 mg/dL (0.2-1.0); CALCIUM, SERUM 9.3 mg/dL (8.5-10.1); CARBON DIOXIDE 21 mmol/L (21-32); CHLORIDE 105 mmol/L (98-107); CREATININE 2.2 mg/dL (0.6-1.3); MAGNESIUM 1.7 mg/dL (1.8-2.4); PHOSPHORUS 4.9 mg/dL (2.5-4.9); POTASSIUM 4.9 mmol/L (3.5-5.1); SODIUM SERUM 138 mmol/L (136-145); TOTAL PROTEIN, SERUM 8.4 g/dL (6.4-8.2)
[2023-03-16 12:43] LABS: UREA NITROGEN, BLOOD 88 mg/dL (7-18)
[2023-03-16 12:57] LABS: GLUCOSE 99 mg/dL (74-106)
== END 2023-03-16 23:59 | disposition home or self-care (01) ==
LOC: MSC 10:31
PROVIDERS: ATTEND Internal Medicine
DX: E11.22 Type 2 diabetes mellitus with diabetic chronic kidney disease (principal); I12.9 Hypertensive chronic kidney disease with stage 1 through stage 4 chronic kidney disease, or unspecified chronic kidney disease; N18.4 Chronic kidney disease, stage 4 (severe); Z79.84 Long term (current) use of oral hypoglycemic drugs; E11.42 Type 2 diabetes mellitus with diabetic polyneuropathy; M47.812 Spondylosis without myelopathy or radiculopathy, cervical region; K59.00 Constipation, unspecified; N39.0 Urinary tract infection, site not specified; D50.9 Iron deficiency anemia, unspecified; E87.20 Acidosis, unspecified; E83.9 Disorder of mineral metabolism, unspecified; M89.9 Disorder of bone, unspecified; R60.0 Localized edema; E78.5 Hyperlipidemia, unspecified; G47.00 Insomnia, unspecified; E66.9 Obesity, unspecified
CPT/HCPCS: 85025; 83735; 83036; 84100; 36415; 80053; G0463

== ENCOUNTER 2023-03-21 11:00 | Outpatient (CLI) | payer MEDICARE, OTHER | END 2023-03-21 23:59 | disposition home or self-care (01) | LOC: MSC 11:00 | PROVIDERS: ATTEND Internal Medicine | DX: E11.22 Type 2 diabetes mellitus with diabetic chronic kidney disease (principal); I12.9 Hypertensive chronic kidney disease with stage 1 through stage 4 chronic kidney disease, or unspecified chronic kidney disease; N18.4 Chronic kidney disease, stage 4 (severe); Z79.84 Long term (current) use of oral hypoglycemic drugs; E11.40 Type 2 diabetes mellitus with diabetic neuropathy, unspecified; M47.812 Spondylosis without myelopathy or radiculopathy, cervical region; K59.00 Constipation, unspecified; N39.0 Urinary tract infection, site not specified; D50.9 Iron deficiency anemia, unspecified; E87.20 Acidosis, unspecified; E83.9 Disorder of mineral metabolism, unspecified; M89.9 Disorder of bone, unspecified; R60.0 Localized edema; E78.5 Hyperlipidemia, unspecified; G47.00 Insomnia, unspecified; E66.9 Obesity, unspecified ==

== ENCOUNTER 2023-04-06 10:39 | Outpatient (CLI) | payer MEDICARE, OTHER ==
[2023-04-06 11:56] LABS: BASOPHILS % (AUTO) 0.5 % (0.0-2.0); EOSINOPHILS % (AUTO) 1.1 % (0.0-6.0); HEMATOCRIT 26 % (33-45); HEMOGLOBIN 8.2 g/dL (11.5-14.8); LYMPHOCYTES # (AUTO) 1.4 K/uL (0.8-4.8); LYMPHOCYTES % (AUTO) 17.6 % (20.0-44.0); MEAN CORPUSCULAR HGB CONC 31 g/dl (31.0-36.0); MEAN CORPUSCULAR VOLUME 79 fL (82-100); MONOCYTES # (AUTO) 0.5 K/uL (0.1-1.30); MONOCYTES % (AUTO) 5.8 % (2.0-12.0); NEUTROPHILS # (AUTO) 6.1 K/uL (1.8-8.9); PLATELET COUNT (AUTO) 269 K/uL (150-450); RED BLOOD CELL COUNT(AUTO) 3.31 MIL/uL (4.0-5.2); WHITE BLOOD COUNT (AUTO) 8.1 K/uL (4.3-11.0)
[2023-04-06 12:28] LABS: ALANINE AMINOTRANSFERASE 24 U/L (12-78); ALKALINE PHOSPHATASE 66 U/L (46-116); ASPARTATE AMINOTRANSFERASE 18 U/L (15-37); BILIRUBIN,TOTAL 0.2 mg/dL (0.2-1.0); C-REACTIVE PROTEIN 0.4 mg/dL (0.0-0.9); CALCIUM, SERUM 9.1 mg/dL (8.5-10.1); CARBON DIOXIDE 19 mmol/L (21-32); CHLORIDE 109 mmol/L (98-107); CREATININE 2.2 mg/dL (0.6-1.3); GLUCOSE 146 mg/dL (74-106); MAGNESIUM 1.6 mg/dL (1.8-2.4); PHOSPHORUS 5.4 mg/dL (2.5-4.9); POTASSIUM 5.3 mmol/L (3.5-5.1); SODIUM SERUM 143 mmol/L (136-145); TOTAL PROTEIN, SERUM 8.1 g/dL (6.4-8.2)
[2023-04-06 12:30] LABS: UREA NITROGEN, BLOOD 96 mg/dL (7-18)
== END 2023-04-06 23:59 | disposition home or self-care (01) ==
LOC: MSC 10:39
PROVIDERS: ATTEND Internal Medicine
DX: E11.22 Type 2 diabetes mellitus with diabetic chronic kidney disease (principal); I12.9 Hypertensive chronic kidney disease with stage 1 through stage 4 chronic kidney disease, or unspecified chronic kidney disease; N18.4 Chronic kidney disease, stage 4 (severe); Z79.84 Long term (current) use of oral hypoglycemic drugs; E11.40 Type 2 diabetes mellitus with diabetic neuropathy, unspecified; M47.812 Spondylosis without myelopathy or radiculopathy, cervical region; K59.00 Constipation, unspecified; N39.0 Urinary tract infection, site not specified; D50.9 Iron deficiency anemia, unspecified; E87.20 Acidosis, unspecified; E83.9 Disorder of mineral metabolism, unspecified; M89.9 Disorder of bone, unspecified; R60.0 Localized edema; E78.5 Hyperlipidemia, unspecified; G47.00 Insomnia, unspecified; E66.9 Obesity, unspecified
CPT/HCPCS: 85025; 83735; 84100; 85652; 36415; 80053; 86140; G0463

== ENCOUNTER 2023-06-22 11:19 | Outpatient (CLI) | payer MEDICARE, OTHER | END 2023-06-22 23:59 | disposition home or self-care (01) | LOC: MSC 11:19 | PROVIDERS: ATTEND Internal Medicine | DX: R42 Dizziness and giddiness (principal); E11.22 Type 2 diabetes mellitus with diabetic chronic kidney disease; I12.9 Hypertensive chronic kidney disease with stage 1 through stage 4 chronic kidney disease, or unspecified chronic kidney disease; N18.4 Chronic kidney disease, stage 4 (severe); Z79.84 Long term (current) use of oral hypoglycemic drugs; E11.40 Type 2 diabetes mellitus with diabetic neuropathy, unspecified; E87.21 Acute metabolic acidosis; K59.00 Constipation, unspecified; M47.812 Spondylosis without myelopathy or radiculopathy, cervical region; N39.0 Urinary tract infection, site not specified; D50.9 Iron deficiency anemia, unspecified; E83.9 Disorder of mineral metabolism, unspecified; M89.9 Disorder of bone, unspecified; E66.9 Obesity, unspecified; Z71.3 Dietary counseling and surveillance; R60.0 Localized edema; E78.5 Hyperlipidemia, unspecified; G47.00 Insomnia, unspecified | CPT/HCPCS: 82962; G0463 ==

== ENCOUNTER 2024-07-30 08:53 | Emergency (ER) | payer MEDICARE, OTHER ==
[~2024-07-30] VITALS: Ht 167.6 cm; Wt 91.6 kg
[2024-07-30] MEDS ORDERED: ACETAMINOPHEN ES 500 MG TABLET ONE (09:04)
[2024-07-30] MEDS: ACETAMINOPHEN ES 500 MG TABLET PO ONE (09:22)
[2024-07-30] MEDS: IV NS 0.9% 500 ML BAG IV ONE (09:22)
[2024-07-30 09:38] LABS: BASOPHILS # (AUTO) 0.1 K/uL (0.0-0.2); BASOPHILS % (AUTO) 0.5 % (0.0-2.0); EOSINOPHILS # (AUTO) 0.1 K/uL (0.0-0.7); EOSINOPHILS % (AUTO) 0.8 % (0.0-6.0); HEMATOCRIT 28 % (33-45); LYMPHOCYTES # (AUTO) 1.2 K/uL (0.8-4.8); LYMPHOCYTES % (AUTO) 10.9 % (20.0-44.0); MEAN CORPUSCULAR HEMOGLOBIN 30 PG (26.0-33.0); MEAN CORPUSCULAR HGB CONC 32 g/dl (31.0-36.0); MEAN CORPUSCULAR VOLUME 94 fL (82-100); MONOCYTES # (AUTO) 0.5 K/uL (0.1-1.30); MONOCYTES % (AUTO) 4.8 % (2.0-12.0); NEUTROPHILS # (AUTO) 9.3 K/uL (1.8-8.9); PLATELET COUNT (AUTO) 253 K/uL (150-450); RED CELL DISTRIBUTION WIDTH 14.6 % (11.5-15.0); WHITE BLOOD COUNT (AUTO) 11.2 K/uL (4.3-11.0)
[2024-07-30 10:37] LABS: CALCIUM, SERUM 8.8 mg/dL (8.5-10.1); CARBON DIOXIDE 23 mmol/L (21-32); CHLORIDE 107 mmol/L (98-107); CREATININE 3.2 mg/dL (0.6-1.3); GLUCOSE 230 mg/dL (74-106); POTASSIUM 5.2 mmol/L (3.5-5.1); SODIUM SERUM 142 mmol/L (136-145); UREA NITROGEN, BLOOD 74 mg/dL (7-18)
[2024-07-30 10:43] LABS: ALANINE AMINOTRANSFERASE 19 U/L (12-78); ALBUMIN 3.1 g/dL (3.4-5.0); ALKALINE PHOSPHATASE 104 U/L (46-116); ASPARTATE AMINOTRANSFERASE 22 U/L (15-37); BILIRUBIN,DIRECT 0.1 mg/dL (0.0-0.2); BILIRUBIN,TOTAL 0.3 mg/dL (0.2-1.0); TOTAL PROTEIN, SERUM 8.2 g/dL (6.4-8.2)
[2024-07-30] MEDS ORDERED: SODIUM ZIRCONIUM CYCLOSILICATE 5 GM POWD.PACK ONE (11:00)
[2024-07-30] MEDS ORDERED: FUROSEMIDE 20 MG/2 ML VIAL ONE (11:00)
[2024-07-30] MEDS: FUROSEMIDE 40 MG/4 ML VIAL IV ONE (11:09)
[2024-07-30] MEDS: SODIUM ZIRCONIUM CYCLOSILICATE 5 GM POWD.PACK PO ONE (11:10)
[2024-07-30 11:11] VITALS: BP 128/76; TEMP 97.9; O2SAT 96
[2024-07-31] MEDS ORDERED: MELA10TA3 PO (13:10)
[2024-07-31] MEDS ORDERED: DOCU100T2 PO (13:10)
[2024-07-31] MEDS ORDERED: ATOR40TA PO (13:10)
== END 2024-07-30 11:19 | disposition home or self-care (01) ==
LOC: ER 08:55
DX: R42 Dizziness and giddiness (principal); I12.9 Hypertensive chronic kidney disease with stage 1 through stage 4 chronic kidney disease, or unspecified chronic kidney disease; E11.22 Type 2 diabetes mellitus with diabetic chronic kidney disease; N18.9 Chronic kidney disease, unspecified; E87.5 Hyperkalemia; Z79.84 Long term (current) use of oral hypoglycemic drugs; Z79.899 Other long term (current) drug therapy; Z85.3 Personal history of malignant neoplasm of breast; Z90.13 Acquired absence of bilateral breasts and nipples; Z86.79 Personal history of other diseases of the circulatory system; Z60.2 Problems related to living alone; W18.39XA Other fall on same level, initial encounter; Y93.89 Activity, other specified; Y92.098 Other place in other non-institutional residence as the place of occurrence of the external cause; Y99.8 Other external cause status
CPT/HCPCS: 99285; 72125; 96374; 71045; 93005; 70450; 85025; 80048; 80076; 36415; 84484; J1940; J7030

== ENCOUNTER 2024-07-31 11:31 | Inpatient (IN) | payer MEDICARE, OTHER ==
[~2024-07-31] VITALS: Ht 167.6 cm; Wt 88.9 kg
[2024-07-31 12:24] LABS: BASOPHILS # (AUTO) 0.1 K/uL (0.0-0.2); BASOPHILS % (AUTO) 0.5 % (0.0-2.0); EOSINOPHILS # (AUTO) 0.2 K/uL (0.0-0.7); HEMATOCRIT 28 % (33-45); HEMOGLOBIN 9.1 g/dL (11.5-14.8); LYMPHOCYTES # (AUTO) 1.5 K/uL (0.8-4.8); LYMPHOCYTES % (AUTO) 15.3 % (20.0-44.0); MEAN CORPUSCULAR HEMOGLOBIN 31 PG (26.0-33.0); MEAN CORPUSCULAR HGB CONC 33 g/dl (31.0-36.0); MEAN CORPUSCULAR VOLUME 94 fL (82-100); MONOCYTES # (AUTO) 0.5 K/uL (0.1-1.30); MONOCYTES % (AUTO) 5.2 % (2.0-12.0); NEUTROPHILS # (AUTO) 7.5 K/uL (1.8-8.9); PLATELET COUNT (AUTO) 284 K/uL (150-450); RED BLOOD CELL COUNT(AUTO) 2.97 MIL/uL (4.0-5.2); RED CELL DISTRIBUTION WIDTH 14.8 % (11.5-15.0); WHITE BLOOD COUNT (AUTO) 9.8 K/uL (4.3-11.0)
[2024-07-31 12:30] LABS: ALANINE AMINOTRANSFERASE 18 U/L (12-78); ALBUMIN 3.1 g/dL (3.4-5.0); ALKALINE PHOSPHATASE 94 U/L (46-116); ASPARTATE AMINOTRANSFERASE 17 U/L (15-37); BILIRUBIN,DIRECT 0.1 mg/dL (0.0-0.2); BILIRUBIN,TOTAL 0.3 mg/dL (0.2-1.0); CALCIUM, SERUM 8.9 mg/dL (8.5-10.1); CARBON DIOXIDE 23 mmol/L (21-32); CHLORIDE 105 mmol/L (98-107); CREATININE 3.1 mg/dL (0.6-1.3); GLUCOSE 249 mg/dL (74-106); POTASSIUM 4.3 mmol/L (3.5-5.1); SODIUM SERUM 141 mmol/L (136-145); TOTAL PROTEIN, SERUM 8.7 g/dL (6.4-8.2); UREA NITROGEN, BLOOD 70 mg/dL (7-18)
[2024-07-31] MEDS ORDERED: ONDANSETRON HCL/PF 4 MG/2 ML VIAL IVP PRN (12:30)
[2024-07-31] MEDS ORDERED: DEXTROSE 50%-WATER 50 ML DISP.SYRIN IV PRN (12:30)
[2024-07-31] MEDS ORDERED: DOCU100T2 PO (13:10)
[2024-07-31] MEDS ORDERED: ATOR40TA PO (13:10)
[2024-07-31] MEDS ORDERED: MELA10TA3 PO (13:10)
[2024-07-31] MEDS ORDERED: LACTULOSE 10 G/15 ML UDC (PYXIS) PO PRN (13:30)
[2024-07-31 16:00] VITALS: BP 160/108; TEMP 98.6; O2SAT 97
[2024-07-31] MEDS ORDERED: hydrALAZINE HCL IV 20 MG VIAL IV PRN (16:00)
[2024-07-31] MEDS: AMLODIPINE BESYLATE 5 MG TABLET PO SCH (16:18)
[2024-07-31] MEDS: GABAPENTIN 100 MG CAPSULE PO SCH (16:18)
[2024-07-31] MEDS: glipiZIDE 5 MG TABLET PO SCH (16:41)
[2024-07-31] MEDS: BLOOD SUGAR DIAGNOSTIC 1 EACH STRIP IN SCH (16:55)
[2024-07-31 21:29] VITALS: BP 154/65; TEMP 99.7; O2SAT 96
[2024-07-31] MEDS: SIMVASTATIN 20 MG TABLET PO SCH (21:37)
[2024-07-31] MEDS: HEPARIN SODIUM, PORCINE 5000 UNITS/1 ML VIAL SQ SCH (21:38)
[2024-07-31] MEDS: TEMAZEPAM 7.5 MG CAPSULE PO PRN (21:51)
[2024-07-31 22:00] VITALS: BP 159/65; TEMP 99.7; O2SAT 96
[2024-08-01 07:00] VITALS: BP 159/66; TEMP 98.2; O2SAT 99
[2024-08-01 07:09] LABS: BASOPHILS # (AUTO) 0.1 K/uL (0.0-0.2); BASOPHILS % (AUTO) 0.8 % (0.0-2.0); EOSINOPHILS # (AUTO) 0.2 K/uL (0.0-0.7); EOSINOPHILS % (AUTO) 2.7 % (0.0-6.0); HEMATOCRIT 24 % (33-45); HEMOGLOBIN 8.1 g/dL (11.5-14.8); LYMPHOCYTES # (AUTO) 1.6 K/uL (0.8-4.8); LYMPHOCYTES % (AUTO) 18.9 % (20.0-44.0); MEAN CORPUSCULAR HEMOGLOBIN 31 PG (26.0-33.0); MEAN CORPUSCULAR HGB CONC 33 g/dl (31.0-36.0); MEAN CORPUSCULAR VOLUME 92 fL (82-100); MONOCYTES # (AUTO) 0.6 K/uL (0.1-1.30); MONOCYTES % (AUTO) 6.9 % (2.0-12.0); NEUTROPHILS # (AUTO) 5.9 K/uL (1.8-8.9); NEUTROPHILS % (AUTO) 70.7 % (43.0-81.0); PLATELET COUNT (AUTO) 238 K/uL (150-450); RED BLOOD CELL COUNT(AUTO) 2.64 MIL/uL (4.0-5.2); RED CELL DISTRIBUTION WIDTH 14.8 % (11.5-15.0); WHITE BLOOD COUNT (AUTO) 8.4 K/uL (4.3-11.0)
[2024-08-01 07:20] LABS: ALANINE AMINOTRANSFERASE 10 U/L (12-78); ALBUMIN 2.6 g/dL (3.4-5.0); ALKALINE PHOSPHATASE 76 U/L (46-116); ASPARTATE AMINOTRANSFERASE 17 U/L (15-37); BILIRUBIN,TOTAL 0.3 mg/dL (0.2-1.0); CALCIUM, SERUM 8.9 mg/dL (8.5-10.1); CARBON DIOXIDE 23 mmol/L (21-32); CHLORIDE 108 mmol/L (98-107); GLUCOSE 243 mg/dL (74-106); MAGNESIUM 1.7 mg/dL (1.8-2.4); PHOSPHORUS 4.6 mg/dL (2.5-4.9); POTASSIUM 4.5 mmol/L (3.5-5.1); SODIUM SERUM 143 mmol/L (136-145); TOTAL PROTEIN, SERUM 7.5 g/dL (6.4-8.2); UREA NITROGEN, BLOOD 65 mg/dL (7-18)
[2024-08-01] MEDS: EMPAGLIFLOZIN 25 MG TABLET PO SCH (08:20)
[2024-08-01] MEDS: CITALOPRAM HYDROBROMIDE 20 MG TABLET PO SCH (08:20)
[2024-08-01] MEDS ORDERED: AMLODIPINE BESYLATE 5 MG TABLET PO SCH (09:00)
[2024-08-01] MEDS: PIOGLITAZONE HCL 15 MG TABLET PO SCH (10:26)
[2024-08-01] MEDS: ACETAMINOPHEN 325 MG TABLET PO PRN (10:26)
[2024-08-01] MEDS: hydrALAZINE HCL 25 MG TABLET PO SCH (10:37)
[2024-08-01] MEDS ORDERED: DICLOFENAC TOPICAL 100 GM TUBE TP PRN (11:30)
[2024-08-01] MEDS: POLYETHYLENE GLYCOL 3350 17 GM POWD.PACK PO SCH (12:18)
[2024-08-01] MEDS: LIDOCAINE 5% (PATCH) 1 EA PATCH TP SCH (12:18)
[2024-08-01] MEDS: DOCUSATE SODIUM LIQ 100 MG/10 ML UDC PO SCH (12:18)
[2024-08-01 16:00] VITALS: BP 139/59; TEMP 98.6; O2SAT 95
[2024-08-01 19:36] LABS: APPEARANCE,URINE SLIGHTLY CLOUDY (CLEAR); BILIRUBIN,URINE NEGATIVE (NEGATIVE); BLOOD, URINE NEGATIVE Ery/uL (NEGATIVE); COLOR,URINE YELLOW (YELLOW); KETONES,URINE NEGATIVE (NEGATIVE); LEUKOCYTE ESTERASE ,URINE TRACE (NEGATIVE); NITRITE, URINE POSITIVE (NEGATIVE); PROTEIN,URINE 1+ mg/dl (NEGATIVE); UGLUCOSE 3+ mg/dL (NEGATIVE); UROBILINOGEN,URINE 0.2 EU/dL (0.2)
[2024-08-01 19:43] LABS: CREATININE, URINE 29.2 MG/DL (30.0-125.0); URINE TOTAL PROTEIN 51.2 mg/dL (0-11.9)
[2024-08-01 19:46] LABS: RBC,URINE 0-2 /HPF (0-2)
[2024-08-01 19:47] LABS: ADD URINE CULTURE YES; BACTERIA,URINE Many /HPF (None Seen); SQUAMOUS EPITHELIAL CELL,UR None Seen /HPF (None Seen)
[2024-08-01 20:17] LABS: EOSINOPHIL,URINE None Seen
[2024-08-01 21:05] VITALS: BP 138/52; TEMP 98.2; O2SAT 97
[2024-08-02 06:19] LABS: BASOPHILS % (AUTO) 0.6 % (0.0-2.0); EOSINOPHILS # (AUTO) 0.3 K/uL (0.0-0.7); EOSINOPHILS % (AUTO) 3.7 % (0.0-6.0); HEMATOCRIT 25 % (33-45); HEMOGLOBIN 8.2 g/dL (11.5-14.8); LYMPHOCYTES # (AUTO) 1.6 K/uL (0.8-4.8); LYMPHOCYTES % (AUTO) 21.9 % (20.0-44.0); MEAN CORPUSCULAR HEMOGLOBIN 31 PG (26.0-33.0); MEAN CORPUSCULAR HGB CONC 33 g/dl (31.0-36.0); MEAN CORPUSCULAR VOLUME 92 fL (82-100); MONOCYTES # (AUTO) 0.6 K/uL (0.1-1.30); MONOCYTES % (AUTO) 8.4 % (2.0-12.0); NEUTROPHILS # (AUTO) 4.9 K/uL (1.8-8.9); NEUTROPHILS % (AUTO) 65.4 % (43.0-81.0); PLATELET COUNT (AUTO) 226 K/uL (150-450); RED BLOOD CELL COUNT(AUTO) 2.71 MIL/uL (4.0-5.2); RED CELL DISTRIBUTION WIDTH 14.5 % (11.5-15.0); WHITE BLOOD COUNT (AUTO) 7.5 K/uL (4.3-11.0)
[2024-08-02 06:51] LABS: ALANINE AMINOTRANSFERASE 15 U/L (12-78); ALBUMIN 2.6 g/dL (3.4-5.0); ALKALINE PHOSPHATASE 80 U/L (46-116); ASPARTATE AMINOTRANSFERASE 17 U/L (15-37); BILIRUBIN,TOTAL 0.2 mg/dL (0.2-1.0); CALCIUM, SERUM 8.7 mg/dL (8.5-10.1); CARBON DIOXIDE 26 mmol/L (21-32); CHLORIDE 105 mmol/L (98-107); CREATININE 3.3 mg/dL (0.6-1.3); GLUCOSE 191 mg/dL (74-106); MAGNESIUM 1.8 mg/dL (1.8-2.4); PHOSPHORUS 5.6 mg/dL (2.5-4.9); POTASSIUM 4.9 mmol/L (3.5-5.1); SODIUM SERUM 142 mmol/L (136-145); TOTAL PROTEIN, SERUM 7.3 g/dL (6.4-8.2)
[2024-08-02 06:55] LABS: CREATINE KINASE, TOTAL 238 U/L (26-192)
[2024-08-02 07:48] LABS: UREA NITROGEN, BLOOD 84 mg/dL (7-18)
[2024-08-02 08:03] VITALS: BP 144/80; TEMP 98.4; O2SAT 96
[2024-08-02] MEDS: EMPAGLIFLOZIN 25 MG TABLET PO SCH (08:07)
[2024-08-02 12:08] LABS: FERRITIN 324 ng/mL (8-388)
[2024-08-02 13:10] LABS: IRON, SERUM 32 ug/dl (50-175); TOTAL IRON BINDING CAPACITY 178 ug/dl (250-450)
[2024-08-02] MEDS ORDERED: EMPA25TA PO (15:48)
[2024-08-02] MEDS ORDERED: PIOG15TA8 PO (15:48)
[2024-08-02] MEDS ORDERED: HYDR-4076 PO (15:48)
[2024-08-02] MEDS ORDERED: AMLO-212 PO (15:48)
[2024-08-02] MEDS: CLOTRIMAZOLE 1% 15 GM TUBE TP SCH (16:56)
[2024-08-02 20:15] VITALS: BP 143/60; TEMP 98.4; O2SAT 96
[2024-08-03 06:15] LABS: BASOPHILS # (AUTO) 0.1 K/uL (0.0-0.2); BASOPHILS % (AUTO) 0.7 % (0.0-2.0); EOSINOPHILS # (AUTO) 0.2 K/uL (0.0-0.7); EOSINOPHILS % (AUTO) 2.9 % (0.0-6.0); HEMATOCRIT 25 % (33-45); HEMOGLOBIN 8.1 g/dL (11.5-14.8); LYMPHOCYTES # (AUTO) 1.9 K/uL (0.8-4.8); LYMPHOCYTES % (AUTO) 23.3 % (20.0-44.0); MEAN CORPUSCULAR HEMOGLOBIN 30 PG (26.0-33.0); MEAN CORPUSCULAR HGB CONC 33 g/dl (31.0-36.0); MEAN CORPUSCULAR VOLUME 92 fL (82-100); MONOCYTES # (AUTO) 0.7 K/uL (0.1-1.30); NEUTROPHILS # (AUTO) 5.4 K/uL (1.8-8.9); NEUTROPHILS % (AUTO) 65.1 % (43.0-81.0); PLATELET COUNT (AUTO) 230 K/uL (150-450); RED BLOOD CELL COUNT(AUTO) 2.71 MIL/uL (4.0-5.2); RED CELL DISTRIBUTION WIDTH 14.3 % (11.5-15.0); WHITE BLOOD COUNT (AUTO) 8.3 K/uL (4.3-11.0)
[2024-08-03 06:33] LABS: ALANINE AMINOTRANSFERASE 15 U/L (12-78); ALBUMIN 2.6 g/dL (3.4-5.0); ALKALINE PHOSPHATASE 81 U/L (46-116); ASPARTATE AMINOTRANSFERASE 15 U/L (15-37); BILIRUBIN,TOTAL 0.2 mg/dL (0.2-1.0); CALCIUM, SERUM 8.8 mg/dL (8.5-10.1); CARBON DIOXIDE 24 mmol/L (21-32); CHLORIDE 104 mmol/L (98-107); CREATININE 3.4 mg/dL (0.6-1.3); GLUCOSE 201 mg/dL (74-106); PHOSPHORUS 5.5 mg/dL (2.5-4.9); POTASSIUM 4.9 mmol/L (3.5-5.1); SODIUM SERUM 140 mmol/L (136-145); TOTAL PROTEIN, SERUM 7.4 g/dL (6.4-8.2)
[2024-08-03 06:36] LABS: UREA NITROGEN, BLOOD 99 mg/dL (7-18)
[2024-08-03 08:00] VITALS: BP 144/55; TEMP 98.2; O2SAT 96
[2024-08-03 08:10] LABS: PTH, INTACT 112 pg/mL (15-65)
[2024-08-03] MEDS: IV NS 0.9% 1,000 ML IV ONE (10:18)
[2024-08-03 12:48] VITALS: BP 130/55
[2024-08-06 12:07] LABS: *SPE A/G RATIO 0.7 (0.7-1.7); *SPE ALBUMIN 2.8 g/dL (2.9-4.4); *SPE ALPHA-1-GLOBULIN 0.3 g/dL (0.0-0.4); *SPE BETA GLOBULIN 0.9 g/dL (0.7-1.3); *SPE GLOBULIN, TOTAL 3.8 g/dL (2.2-3.9); *SPE M-SPIKE Not Observed g/dL (Not Observed); *SPE PROTEIN TOTAL 6.6 g/dL (6.0-8.5); *SPEGAMMA GLOBULIN 1.5 g/dL (0.4-1.8)
== END 2024-08-03 15:45 | DRG 640 ==
LOC: ER 11:53 → MED 13:02
PROVIDERS: ADMIT Internal Medicine; ATTEND Internal Medicine
DX: E86.0 Dehydration (principal); R53.2 Functional quadriplegia; N18.5 Chronic kidney disease, stage 5; N17.9 Acute kidney failure, unspecified; I12.0 Hypertensive chronic kidney disease with stage 5 chronic kidney disease or end stage renal disease; E11.22 Type 2 diabetes mellitus with diabetic chronic kidney disease; W19.XXXA Unspecified fall, initial encounter; Z85.3 Personal history of malignant neoplasm of breast; Z90.13 Acquired absence of bilateral breasts and nipples; F02.80 Dementia in other diseases classified elsewhere, unspecified severity, without behavioral disturbance, psychotic disturbance, mood disturbance, and anxiety; G20.A1 Parkinson's disease without dyskinesia, without mention of fluctuations; R62.7 Adult failure to thrive; Z74.09 Other reduced mobility; Z79.84 Long term (current) use of oral hypoglycemic drugs; Z79.4 Long term (current) use of insulin; M89.8X9 Other specified disorders of bone, unspecified site; L85.3 Xerosis cutis; L60.2 Onychogryphosis; L60.0 Ingrowing nail; R32 Unspecified urinary incontinence; Z88.8 Allergy status to other drugs, medicaments and biological substances; K21.9 Gastro-esophageal reflux disease without esophagitis; Z79.899 Other long term (current) drug therapy; E83.42 Hypomagnesemia; E78.5 Hyperlipidemia, unspecified; K59.00 Constipation, unspecified; E66.9 Obesity, unspecified; Z68.31 Body mass index [BMI] 31.0-31.9, adult; D64.9 Anemia, unspecified; M19.90 Unspecified osteoarthritis, unspecified site; F41.9 Anxiety disorder, unspecified; Z86.31 Personal history of diabetic foot ulcer
CPT/HCPCS: 36415; 71045-TC; 76770-TC; 80048-TC; 80053-TC; 80076-TC; 81001; 82550-TC; 82553; 82570-TC; 82728-TC; 82962-TC; 83540-TC; 83735-TC; 83970; 84100-TC; 84155; 84165; 84300-TC; 84443-TC; 84484-TC; 85025-TC; 97110-TC; 97116-TC; 97530-TC; 97535-TC; A4223; G0378; J1644; J7030